=== PATIENT | female | born 1950 | race Caucasian/White ===

== ENCOUNTER 2024-09-17 10:13 | Outpatient (AMB) | payer MEDICARE, SELFPAY ==
--- NOTE | 2024-09-17 10:15 | MHC.OFFVIS ---
Vital Signs 09/17/24 10:19 Height 5 ft 4.25 in Weight 181 lb 14.102 oz BMI 31.0 BP 104/68 Blood Pressure Location Lt brachial Position Sitting Pulse 74 Pulse Source Pulse Oximeter Pulse Oximetry (%) 96 Oxygen Delivery Method Room Air Intake Visit Reasons: COPD Allergies Sulfa (Sulfonamide Antibiotics) Adverse Reaction (Intermediate, Verified 09/17/24 10:24) Gastrointestinal Upset HPI Comments Details: The patient is here for pulmonary evaluation. The patient is a 74 year woman presenting with worsening dyspnea symptoms. She had abnormal CT scan of the chest and she was referred to Pulmonary. . The patient has been having worsening dyspnea on exertion now for several months. Seems to be getting worse. Moderate severity. Even with minimal activities she does get short of breath. But typically going up a flight of stairs causes her to have significant discomfort. She was evaluated over the summer with pulmonary function studies which I personally reviewed with her. No evidence of any obstructive nor restrictive ventilatory defects. She did have a mild isolated diffusion impairment. Therefore based on the fact that her PFTs were not significant the abnormal she underwent a cardiac workup. She had a CT coronary artery angiogram back in 2021 demonstrating minimal disease. Subsequently she did undergo more recently a diagnostic left heart cardiac catheterization. Her LVEDP was 10 mmHg. No significant CAD noted. Based on the fact that she continued to have symptoms she was placed on respiratory inhalers include Breztri and Trelegy. Unfortunately she did have adverse effects to those medications. She was then placed on Anoro which she seems to tolerate. In addition to that she did undergo a CT scan of the chest. Based on the report seems to have some degree of minimal emphysema in the upper lung areas and some reticular changes at the bases suggesting some interstitial lung disease pulmonary fibrosis. During the visit we did go for walking oximetry. Initially her saturations were down so I did get a year probe. Then we were able to follow her pulse oximeter with activity. She did desaturate down to about 91% with activity. We did go up a flight of stairs. Likely that she would desaturated further. Therefore, some of her symptoms indeed is from of hypoxia. the patient does not qualify for oxygen at this time. [facility] Medical History (Updated 09/17/24 @ 21:09 by Claus Kramer MD) Pulmonary nodule Hypoxia ILD (interstitial lung disease) COPD (chronic obstructive pulmonary disease) Social History (Updated 09/17/24 @ 10:22 by Torie Ba CMA) Patient Tobacco Use Status: Former Tobacco user Review of Systems Const Denies fever(s) ENT Reports no additional complaints Card Denies chest pain and Reports dyspnea on exertion Resp Reports dyspnea on exertion and Reports wheezing GI Reports heartburn Musc Reports myalgias Skin/Breast Denies rash Boyd/Lymph Reports no additional complaints Aller/Immun Reports wheezing Physical Exam Vital Signs: Last Vital Signs Pulse 74 09/17/24 10:19 BP 104/68 09/17/24 10:19 Pulse Ox 96 09/17/24 10:19 Oxygen Delivery Method Room Air 09/17/24 10:19 BMI result Body Mass Index 31.0 Const General: comfortable HEENT Head: Yes normocephalic Neck Neck: Yes supple Chest Chest palpation & inspection: normal inspection of the chest Resp Effort & Inspection: normal respiratory effort Auscultation: diminished lung sounds Cardio Heart sounds: S1 normal heart sound present and S2 normal heart sound present GI Palpation (GI): Soft to palpation Skin General skin exam: no rashes or lesions noted Extrem General: Yes no clubbing, cyanosis or edema Results Reviewed Results Reviewed: personally reviewed CT coronary artery 2021, PFTs 03/2024 Assessment & Plan Assessment & Plan (1) COPD (chronic obstructive pulmonary disease): Code(s): J44.9 - Chronic obstructive pulmonary disease, unspecified Category: Medical Qualifiers: COPD type: emphysema Emphysema type: centrilobular Qualified Code(s): J43.2 - Centrilobular emphysema (2) ILD (interstitial lung disease): Code(s): J84.9 - Interstitial pulmonary disease, unspecified Category: Medical (3) Hypoxia: Code(s): R09.02 - Hypoxemia Category: Medical (4) Pulmonary nodule: Comment: 3mm nodule Code(s): R91.1 - Solitary pulmonary nodule Category: Medical Plan The patient is presenting With dyspnea on exertion. may have a component interstitial lung disease. Has underlying interstitial the reticular changes at the bases. Evidence of hypoxia with activity although she does not qualify for oxygen at this time. Need to consider exercise induced pulmonary vascular disease. continue Anoro start Fluticasone HFA with spacer to minimize adverse effects sleep with HOB elevated reflux diet Consider bloodwork to address ILD serial imaging studies exercise regimen F/U 2 months Medications: New fluticasone propionate 110 mcg/actuation 2 puffs inhalation BID 12 grams 5RF 30 days Coding Level of Care Code New Pt Level 5 (46944) Diagnoses Centrilobular emphysema J43.2 COPD type: emphysema Emphysema type: centrilobular ILD (interstitial lung disease) J84.9 Hypoxia R09.02 Pulmonary nodule R91.1 Time Spent (min) 60
[2024-09-17 10:19] VITALS: BP 104/68; PULSE 74; O2SAT 96; BMI 31.0
--- OUTSIDE RECORDS SUMMARY | 2024-09-17 11:32 | XMS_ITS ---
Author Name [facility] Organization Unknown History of Medication Use Medication Directions Dispensed Refills Start Date End Date [facility] ipratropium 0.5 mg-albuterol 3 mg (2.5 mg base)/3 mL nebulization soln TAKE 1 VIAL EVERY 4 TO 6 HOURS NEEDED. 06/07/2024 active neomycin 3.5 mg/g-polymyxin B 10,000 unit/g-dexameth 0.1 % eye oint APPLY 1 A SMALL AMOUNT INTO AFFECTED EYE TWICE A DAY DIRECTED FOR 1 WEEK ONLY 06/07/2024 active azithromycin 250 mg tablet 06/07/2024 active benzonatate 200 mg capsule 06/07/2024 active tramadol 50 mg tablet TAKE 1 TABLET BY MOUTH THREE TIMES A DAY NEEDED FOR PAIN 06/07/2024 active duloxetine 60 mg capsule,delayed release 06/07/2024 active amoxicillin 500 mg tablet TAKE 4 CAPSULES BY MOUTH ONE HOUR BEFORE DENTAL APPOINTMENT 06/07/2024 active codeine 10 mg-guaifenesin 100 mg/5 mL oral liquid TAKE 2.5ML BY MOUTH EVERY 4 TO 6 HOURS NEEDED 06/07/2024 active cefdinir 300 mg capsule TAKE ONE CAPSULE BY MOUTH TWICE DAILY 06/07/2024 active prednisone 10 mg tablet 06/07/2024 active levofloxacin 750 mg tablet TAKE 1 TABLET BY MOUTH EVERY DAY 06/07/2024 active levothyroxine 50 mcg tablet 06/07/2024 active Vios Aerosol Delivery System USE DIRECTED 06/07/2024 active Anoro Ellipta 62.5 mcg-25 mcg/actuation powder for inhalation 06/07/2024 act jessica pantoprazole 40 mg tablet,delayed release TAKE 1 TABLET BY MOUTH EVERY DAY 06/07/2024 active oxycodone 5 mg tablet TAKE 1 TO 2 TABLETS BY MOUTH EVERY 4 HOURS NEEDED FOR SEVERE PAIN 06/07/2024 active cyclobenzaprine 10 mg tablet TAKE 1 TABLET BY MOUTH THREE TIMES A DAY 06/07/2024 active Trelegy Ellipta 100 mcg-62.5 mcg-25 mcg powder for inhalation INHALE 1 PUFF ONCE DAILY 06/07/2024 active Combivent Respimat 20 mcg-100 mcg/actuation solution for inhalation 2 PUFFS INHALATION EVERY 6 HRS NEEDED 06/07/2024 active rosuvastatin 40 mg tablet 06/07/2024 active metoprolol succinate ER 100 mg tablet,extended release 24 hr 06/07/2024 active Eliquis 2.5 mg tablet TAKE 1 TABLET BY MOUTH TWO TIMES A DAY FOR 7 DAYS THEN RESUME HOME DOSE 06/07/2024 active Eliquis 5 mg tablet TAKE 1 TABLET BY MOUTH TWICE A DAY FOR 90 DAYS 06/07/2024 active Allergies Allergen Reaction Severity Comment Documented Date Source Statu s SULFA (SULFONAMIDE ANTIBIOTICS) ENS_AONECT Problems Problem Status Onset Date Problem Type Date of Resoluti on Source Pain of left knee joint active 2024-06-02 ProblemAct ENS_AONECT
== END 2024-09-17 11:10 | disposition home or self-care (01) ==
PROVIDERS: PCP Internal Medicine; Visit Provider Hospitalist
DX: J43.2 Centrilobular emphysema (principal); J84.9 Interstitial pulmonary disease, unspecified; R09.02 Hypoxemia; R91.1 Solitary pulmonary nodule
CPT/HCPCS: 99205

== ENCOUNTER → 2024-09-17 10:13 | Outpatient (BNVA) | payer MEDICARE, SELFPAY | PROVIDERS: PCP Internal Medicine; Visit Provider Hospitalist | DX: J43.2 Centrilobular emphysema (principal); J84.9 Interstitial pulmonary disease, unspecified; R09.02 Hypoxemia; R91.1 Solitary pulmonary nodule | CPT/HCPCS: 99202 ==

== ENCOUNTER 2024-11-26 09:58 | Outpatient (REF) | payer MEDICARE, SELFPAY | END 2024-11-26 09:59 | disposition home or self-care (01) | LOC: HO.LNP 09:58 | PROVIDERS: PCP Internal Medicine; Visit Provider Hospitalist | DX: J32.9 Chronic sinusitis, unspecified (principal); J84.9 Interstitial pulmonary disease, unspecified; R09.02 Hypoxemia; R91.1 Solitary pulmonary nodule | CPT/HCPCS: 87070; 87077; 87185; 87205; 99212 ==

== ENCOUNTER 2024-11-26 09:58 | Outpatient (AMB) | payer MEDICARE, SELFPAY ==
[2024-11-26 10:01] VITALS: BP 130/68; PULSE 64; O2SAT 95; BMI 30.4
--- NOTE | 2024-11-26 10:01 | MHC.OFFVIS ---
Vital Signs 11/26/24 10:01 Height 5 ft 4.25 in Weight 178 lb 9.191 oz BMI 30.4 BP 130/68 Blood Pressure Location Lt brachial Position Sitting Pulse 64 Pulse Source Pulse Oximeter Pulse Oximetry (%) 95 Oxygen Delivery Method Room Air Intake Visit Reasons: COPD Allergies Sulfa (Sulfonamide Antibiotics) Adverse Reaction (Intermediate, Verified 11/26/24 10:04) Gastrointestinal Upset HPI Comments Details: The patient is a 74 year woman presenting with worsening dyspnea symptoms. She had abnormal CT scan of the chest and she was referred to Pulmonary. . The patient has been having worsening dyspnea on exertion now for several months. Seems to be getting worse. Moderate severity. Even with minimal activities she does get short of breath. But typically going up a flight of stairs causes her to have significant discomfort. She was evaluated over the summer with pulmonary function studies which I personally reviewed with her. No evidence of any obstructive nor restrictive ventilatory defects. She did have a mild isolated diffusion impairment. Therefore based on the fact that her PFTs were not significant the abnormal she underwent a cardiac workup. She had a CT coronary artery angiogram back in 2021 demonstrating minimal disease. Subsequently she did undergo more recently a diagnostic left heart cardiac catheterization. Her LVEDP was 10 mmHg. No significant CAD noted. Based on the fact that she continued to have symptoms she was placed on respiratory inhalers include Breztri and Trelegy. Unfortunately she did have adverse effects to those medications. She was then placed on Anoro which she seems to tolerate. In addition to that she did undergo a CT scan of the chest. Based on the report seems to have some degree of minimal emphysema in the upper lung areas and some reticular changes at the bases suggesting some interstitial lung disease pulmonary fibrosis. During the visit we did go for walking oximetry. Initially her saturations were down so I did get a year probe. Then we were able to follow her pulse oximeter with activity. She did desaturate down to about 91% with activity. We did go up a flight of stairs. Likely that she would desaturated further. Therefore, some of her symptoms indeed is from of hypoxia. the patient does not qualify for oxygen at this time. 11/26/2024 the patient is here for a pulmonary follow-up visit. Overall she is doing well. She did start the Flovent. Is working well. Although she is getting hoarseness. She is using it 2 puffs with spacer in the morning. Will go ahead and to 1 puff twice a day to try to minimize irritation to her throat. She should also rinse and gargle well mouthwash or salt water and start of water. She continues on the Anoro inhaler with good effect. The patient still complains of chest congestion. Although is getting a little better. She brings up some phlegm. We were able to get a sputum culture sent to the microbiology lab. In the meantime I do believe that for her chronic bronchitis and Acapella valve will be helpful to help her with CPT and mucus clearance. If that is not helpful or if her mucus gets worse we can also consider azithromycin 3 times a week or considering Daliresp. The patient will start using the Acapella valve and hopefully she feels better without any additional medication. She will follow up sometime in the fall with a chest x-ray if she has any issues prior to that she will call for an earlier assessment. [facility] Medical History (Updated 09/17/24 @ 21:09 by Claus Kramer MD) Pulmonary nodule Hypoxia ILD (interstitial lung disease) COPD (chronic obstructive pulmonary disease) Social History Patient Tobacco Use Status: Former Tobacco user Review of Systems Const Denies fever(s) ENT Reports no additional complaints Card Denies chest pain and Reports dyspnea on exertion Resp Reports dyspnea on exertion and Reports wheezing GI Reports heartburn Musc Reports myalgias Skin/Breast Denies rash Boyd/Lymph Reports no additional complaints Aller/Immun Reports wheezing Physical Exam Vital Signs: Last Vital Signs Pulse 64 11/26/24 10:01 BP 130/68 11/26/24 10:01 Pulse Ox 95 11/26/24 10:01 Oxygen Delivery Method Room Air 11/26/24 10:01 BMI result Body Mass Index 30.4 Const General: comfortable HEENT Head: Yes normocephalic Neck Neck: Yes supple Chest Chest palpation & inspection: normal inspection of the chest Resp Effort & Inspection: normal respiratory effort Auscultation: diminished lung sounds Cardio Heart sounds: S1 normal heart sound present and S2 normal heart sound present GI Palpation (GI): Soft to palpation Skin General skin exam: no rashes or lesions noted Extrem General: Yes no clubbing, cyanosis or edema Assessment & Plan Assessment & Plan (1) COPD (chronic obstructive pulmonary disease): Code(s): J44.9 - Chronic obstructive pulmonary disease, unspecified Category: Medical Qualifiers: COPD type: emphysema Emphysema type: centrilobular Qualified Code(s): J43.2 - Centrilobular emphysema (2) ILD (interstitial lung disease): Code(s): J84.9 - Interstitial pulmonary disease, unspecified Category: Medical (3) Hypoxia: Code(s): R09.02 - Hypoxemia Category: Medical (4) Pulmonary nodule: Comment: 3mm nodule Code(s): R91.1 - Solitary pulmonary nodule Category: Medical Plan The patient is presenting With dyspnea on exertion. may have a component interstitial lung disease. Has underlying interstitial the reticular changes at the bases. Evidence of hypoxia with activity although she does not qualify for oxygen at this time. Need to consider exercise induced pulmonary vascular disease. continue Anoro change Fluticasone HFA 1 puff BID with spacer to minimize adverse effects sleep with HOB elevated reflux diet CXR sputm culture start CPT with acapella valve exercise regimen F/U 4-6 months Orders: Orders XR chest 2V Today J84.9 - Interstitial pulmonary disease, unspecified Sputum Cult + Gram stain Today R91.1 - Solitary pulmonary nodule Coding Level of Care Code Est Pt Level 4 (79592) Diagnoses Centrilobular emphysema J43.2 COPD type: emphysema Emphysema type: centrilobular ILD (interstitial lung disease) J84.9 Hypoxia R09.02 Pulmonary nodule R91.1 Time Spent (min) 17
--- OUTSIDE RECORDS SUMMARY | 2024-11-26 11:20 | XMS_ITS ---
Author Organization Mil Gill MD Address [address] [id number] Care Team Providers Care Strip Winder Name Role Phone Mil Gill Primary Care Provider REASON FOR VISIT Inhaler Encounters Encounter Location Date Provider Diagnosis Mil Gill MD 50 [facility] [address] [place] [phone] 10/16/2024 Mil Gill Plan Of Treatment Next Appt Details Provider Name:Mil Gill , 01/15/2025 01:00:00 PM, [address] [place] [address], [place] [address], [place], [place], [phone], Progress Notes * Altagracia GREEN ADOB:[birth year] (74 yo F)Acc No.[id number]:10/16/2024 Patient:?Altagracia GREEN :1950???Age:74 Y???Sex:Female Address:[address] [place] [address] [place], [address] * true * Date:? Generated for Printi nahum/Zaid/eTransmitting on:?11/26/2024 11:20 AM EDT
--- OUTSIDE RECORDS SUMMARY | 2024-11-26 11:20 | XMS_ITS | Encounter Summary ---
Author Organization [facility] Address [address] [place] [address] Care Team Providers Care Forepart Laster Name Role Phone Mil Gill MD Primary Care Provider [phone] Reason for Visit * Reason Onset Date Comments Anticoagulation 11/05/[address] Brown Encounter Details Date Type Department Care Team (Late st Contact Info) Description 11/05/2024 Telephone Gastroenterology - [place] [address] [facility] [address] [place] [address] Cielo Toney LPN Anticoagulation (Colonoscopy on 12/11/[address] Brown) Social History Tobacco Use Types Packs/Day Years Used Date Smoking Tobacco: Former Cigarettes Alcohol Use Standard Drinks/Week Comments Yes 0 (1 standard drink = 0.6 oz pur e alcohol) social Comments Unknown Sex and Gender Information Value Date Recorded Sex Assigned at Female 08/19/2024 8:34 AM EST Legal Sex Female 4:22 PM EST Gender Identity Female 08/19/2024 8:34 AM EST Sexual Orientation Straight 08/19/2024 8: 34 AM EST documented as of this encounter Progress Notes * Cielo Toney LPN - 11/18/2024 3:53 PM EDT Spoke with pt, thinks she has eliquis hold instructions on letter from ov on 10/03/24. She will callback if any questions. * Luzmaria Krause - 11/18/2024 1:12 PM EDT Patient returning call to discuss eliquis instructions, please call [phone]. * Cielo Toney LPN - 11/18/2024 1:06 PM EDT Left msg for pt to call back. Did pt get instructions to hold eliquis at last ov? * Cielo Toney LPN - 11/05/2024 2:48 PM EST Colonoscopy on 12/11/[address] Brown, See ov note from 10/03/24, pt on eliquis, advised to hold 2 days prior to colonoscopy documented in this encounter Plan of Treatment Upcoming Encounters Date Type Department Care Team (Late st Contact Info) Description 12/11/2024 12:00 PM EDT Hospital Encounter [facility] Endoscopy [address] [place] [phone] Shy Brown MD [address] [facility] [address] [place] [address] documented as of this encounter Visit Diagnoses Not on filedocumented in this encounter Care Teams Forepart Laster Relationship Specialty Start Date End Date Mil Gill MD 50 [facility] [address] [place] [address] PCP - General Internal Medicine 08/19/24 documented as of this encounter
--- OUTSIDE RECORDS SUMMARY | 2024-11-26 11:21 | XMS_ITS ---
Author Organization Mil Gill MD Address [address] [place] [phone] Care Team Providers Care Booking Clerk Name Role Phone Mil Gill Primary Care Provider [phone] Reason For Referral Reason Duplicate Diagnosis 1 Spinal stenosis, lum bar region with neurogenic claudication (M48.062) Referral Organization Mil Gill MD Referring Provider First Name Mil Referring Provider Last Name Jairo Referring Provider Speciality Internal M edicine Referred Provider [facility] Referral, N [facility]science Referred Provider Specialty Neurosurgery General Notes Duplicate Referral Referral Priority Routine REASON FOR VISIT Test results Encounters Encounter Location Date Provider Diagnosis Mil Gill MD [address] [phone] 11/24/2024 Mil Gill Spinal stenosis, lumbar region with neurogenic claudication M48.062 Assessments Encounter Date Diagnosis (ICD Code) Assessment Notes Treatment Notes Treatment Clinical Notes Section Notes 11/24/2024 Spinal stenosis, lumbar region with neurogenic claudication (ICD-10 - M48.062) Plan Of Treatment Referrals Referral Date Details 11/25/2024 11/25/2024, Duplicat e, Neuroscience [facility] Referral Next Appt Details Provider Name:Mil Gill , 01/15/2025 01:00:00 PM, [address] [place] [address], [phone], Progress Notes * Altagracia GREEN ADOB:[birth year] (74 yo F)Acc No.[id number]:11/24/2024 Patient:?RICARDO, Altagracia A :1950???Age:74 Y???Sex:Female Address:[address] [place], [place] [address], [address] Subjective: * Chief Complaints: * ???Test results * Medical History:? * Surgical History:? * Hospitalization/Major Diagno stic Procedure:? * Medications:? Objective: * Vitals:? Past Vitals:* 11/12/2024 Temp:97.2F, HR:72/min, Wt:17 9lbs, BMI:30.48Index, Ht:5 ft 4.25 in, Oxygen sat %:94% * 10/14/2024 Temp:95.9F, HR:77/min, Wt:17 8lbs, BMI:30.31Index, Ht:5 ft 4.25 in, Oxygen sat %:97% * 07/11/2024 Temp:96.7F, HR:73/min, Wt:18 3lbs, BMI:31.16Index, Ht:5 ft 4.25 in, Oxygen sat %:96% * Physical Examination:? Assessment: * Assessment: 1.?Spinal stenosis, lumbar r egion with neurogenic claudication - M48.062 (Primary)??? Plan: * Treatment: * Procedure Codes:? * true * Date:? Generated for Christina sidhu/Zaid/Kalebsmitting on:?11/26/2024 11:20 AM EDT Consultation Request Notes Referral Date Referring Provider Referred Provider Not 11/25/2024 Mil Gill [facility] Referral, Neuros cience Duplicate
--- OUTSIDE RECORDS SUMMARY | 2024-11-26 11:21 | XMS_ITS ---
Author Organization [facility] Address [address] [id number] Care Team Providers Care Telecine Operator Name Role Phone Mil [facility] Primary Care Provider Allergies Allergen (clinical drug ingredient) Drug/Non Drug Allergy documented on EMR Reaction Allergy Type Onset Date Status Substance with sulfonamide structure and antibacterial mechanism of action (substance) Sulfa (sulfonamide antibiotics) (uncoded) Unknown Allergy Active Results Component Value Reference Range Notes MR Lumbar Reviewed date:11/24/2024 06:16:34 PM Interpretation: Performing Lab: Notes/Report: Original Report EXAM: MR LUMBAR SPINE WITHOUT CONTRAST INDICATION: Neurogenic claudication TECHNIQUE: MRI lumbar spine was performed according to routine protocol with multiplanar fast spin echo imaging and sagittal fat-suppressed T2 imaging. COMPARISON: None. FINDINGS: Alignment: Normal Conus and Cauda Equina: The conus terminates at the L1 level and demonstrates no signal abnormality. Vertebral Body Heights: No significant height loss. Marrow Signal: No suspicious marrow replacing lesion. Multilevel degenerative endplate changes with edema noted at L4-L5 and L5-S1. Discs: There are varying degrees of degenerative disc desiccation and height loss. T12-L1: There is no significant canal or foraminal stenosis. L1-L2: Disc bulge, facet arthropathy and ligamentum flavum thickening with mild spinal canal stenosis. No significant foraminal stenosis. L2-L3: Mild disc bulge and posterior endplate spurring, facet arthropathy and ligamentum flavum thickening. Mild spinal canal, moderate right and mild left foraminal stenosis. Findings are similar to prior exam. L3-L4: Mild disc bulge, endplate spurring, facet arthropathy, posterior epidural fat and ligamentum flavum thickening. Mild spinal canal and moderate right and mild left foraminal stenosis. Findings are similar to prior exam. L4-L5: Mild disc bulge, left greater than right facet arthropathy and ligamentum flavum thickening. Moderate to severe spinal canal, severe left and mild to moderate right foraminal stenosis. Findings are similar to prior exam given differences in techniques. L5-S1: Disc bulge, facet arthropathy and ligamentum flavum thickening with mild spinal canal and moderate bilateral foraminal stenosis. Findings are interval slightly progressed since prior exam. No abnormality is identified at the visualized portion of the sacrum. IMPRESSION: Multilevel degenerative changes of the lumbar spine as described. Findings are most pronounced at L4-L5 with moderate to severe spinal canal, severe left and mild to moderate right foraminal stenosis. Read by: GRACE MONZON MD Reviewed and Electronically Signed by: GRACE MONZON MD - Original Report EXAM: MR LUMBAR SPIN E WITHOUT CONTRAST INDICATION: Neurogen ic claudication TECHNIQUE: MRI lumba r spine was performed according to routine protocol with multiplanar fast spi n echo imaging and sagittal fat-suppressed T2 imaging. COMPARISON: None. FINDINGS: Alignment: Normal Conus and Cauda Equi na: The conus terminates at the L1 level and demonstrates no signal abnormality. Vertebral Body Heigh ts: No significant height loss. Marrow Signal: No cardona spicious marrow replacing lesion. Multilevel degenerative endplate changes wit h edema noted at L4-L5 and L5-S1. Discs: There are michael fadi degrees of degenerative disc desiccation and height loss. T12-L1: There is no significant canal or foraminal stenosis. L1-L2: Disc bulge, f acet arthropathy and ligamentum flavum thickening with mild spinal canal stenosi s. No significant foraminal stenosis. L2-L3: Mild disc bul ge and posterior endplate spurring, facet arthropathy and ligamentum flavum th ickening. Mild spinal canal, moderate right and mild left foraminal stenosis. Findings are similar to prior exam. L3-L4: Mild disc bul ge, endplate spurring, facet arthropathy, posterior epidural fat and ligamentum f lavum thickening. Mild spinal canal and moderate right and mild left foraminal stenosis. Findings are similar to prior exam. L4-L5: Mild disc bul ge, left greater than right facet arthropathy and ligamentum flavum thickening. M oderate to severe spinal canal, severe left and mild to moderate right monet inal stenosis. Findings are similar to prior exam given differences in techniques. L5-S1: Disc bulge, f acet arthropathy and ligamentum flavum thickening with mild spinal canal and mod erate bilateral foraminal stenosis. Findings are interval slightly progressed since prior exam. No abnormality is id entified at the visualized portion of the sacrum. IMPRESSION: Multilevel degenerat jessica changes of the lumbar spine as described. Findings are most pronounced at L 4-L5 with moderate to severe spinal canal, severe left and mild to moderate rig ht foraminal stenosis. Read by: GRACE MONZON MD Reviewed and Electro nically Signed by: GRACE MONZON MD MR Thoracic Reviewed date:11/24/2024 06:16:34 PM Interpretation: Performing Lab: Notes/Report: Original Report EXAM: MR THORACIC SPINE WITHOUT CONTRAST INDICATION: Neurogenic claudication TECHNIQUE: Noncontrast MR of the thoracic spine was performed according to protocol with multiplanar fast spin echo imaging and sagittal fat-suppressed T2 imaging COMPARISON: None. FINDINGS: Alignment is unremarkable. Vertebral body heights are maintained. No suspicious marrow replacing lesion. Multilevel degenerative endplate changes with marrow edema most notable at T9-T10. There are multilevel degenerative disc changes. Disc bulge, facet arthropathy and ligamentum flavum thickening at T1-2 with mild spinal canal stenosis. The disc bulge contacts the ventral cord without cord signal abnormality. Moderate to severe bilateral foraminal stenosis at this level. Multilevel disc bulges throughout the thoracic spine in addition to ligamentum flavum thickening and posterior epidural fat resulting up to mild spinal canal stenosis. Moderate to severe right and mild left foraminal stenosis at T9-T10. The thoracic cord is normal in appearance. No paraspinal lesions are identified. IMPRESSION: 1. Multilevel degenerative changes of the thoracic spine as described. Findings are most pronounced at T1-T2 with mild spinal canal, moderate severe bilateral foraminal stenosis and T9-T10 with moderate to severe right and mild left foraminal stenosis. 2. Multilevel degenerative edema is noted along the endplates, most pronounced at T9-T10. Read by: GRACE MONZON MD Reviewed and Electronically Signed by: GRACE MONZON MD - Original Report EXAM: MR THORACIC SP INE WITHOUT CONTRAST INDICATION: Neurogen ic claudication TECHNIQUE: Noncontra st MR of the thoracic spine was performed according to protocol with multip lanar fast spin echo imaging and sagittal fat-suppressed T2 imaging COMPARISON: None. FINDINGS: Alignment is unremarkable. Vertebral body heigh ts are maintained. No suspicious marrow replacing lesion. Multilevel degenerative endplate changes with marrow edema mo st notable at T9-T10. There are multilevel degenerative disc changes. Disc bulge, facet ar thropathy and ligamentum flavum thickening at T1-2 with mild spinal canal stenosi s. The disc bulge contacts the ventral cord without cord signal abnormality. Moderate to severe bilateral foraminal stenosis at this level. Multilevel disc bulg es throughout the thoracic spine in addition to ligamentum flavum thickening an d posterior epidural fat resulting up to mild spinal canal stenosis. Moderate to severe r ight and mild left foraminal stenosis at T9-T10. The thoracic cord is normal in appearance. No paraspinal lesion s are identified. IMPRESSION: 1. Multilevel degene rative changes of the thoracic spine as described. Findings are most pronounced at T1-T2 with mild spinal canal, moderate severe bilateral foraminal stenosis a nd T9-T10 with moderate to severe right and mild left foraminal stenosis. 2. Multilevel degene rative edema is noted along the endplates, most pronounced at T9-T10. Read by: GRACE MONZON MD Reviewed and Electro nically Signed by: GRACE MONZON MD Reason For Referral Reason faxed Diagnosis 1 Spinal stenosis, lum bar region with neurogenic claudication (M48.062) Referral Organization [facility] Referring Provider First Name Mil Referring Provider Last Name Jairo Referring Provider Speciality Internal M edicine Referred Provider Natalie Mathews Referred Provider Specialty Pain Medicin e General Notes Vidya LU 11/01 03:52:45 PM >faxed Referral Priority Routine Reason faxed Diagnosis 1 Spinal stenosis, lum bar region with neurogenic claudication (M48.062) Referral Organization [facility] Referring Provider First Name Mil Referring Provider Last Name Jairo Referring Provider Speciality Internal M edicine Referred Provider [facility] Referral, [facility] Referred Provider Specialty Neurosurgery General Notes Vidya LU 11/02 01:16:23 PM >Completed [facility] referral form and faxed Referral Priority Routine REASON FOR VISIT back pain/ not sleeping Medications Medication SIG (Take, Route, Frequency, Duration) Notes Start Date End Date Status Fluticasone Propionate (Inhal) 100 MCG/ACT 1 puff Inhalation Twice a day Not-Taking Fluticasone Propionate HFA 110 MCG/ACT 2 puffs Inhalation Twice a day Active Gabapentin 300 MG 3 capsule Orally Once a day for 30 days As needed 11/12/2024 Active Rosuvastatin Calcium 40 MG TAKE 1 TABLET ONCE DAILY for 90 Active DULoxetine HCl 60 MG TAKE 1 CAPSULE ONCE DAILY for 90 Active Cyanocobalamin 1000 MCG 1 lozenge Orally Once a Week Active Ipratropium-Albuterol 20-100 MCG/ACT 2 Puffs Inhalation every 6 hrs As needed 03/17/2024 Active Levothyroxine Sodium 50 MCG TAKE 1 TABLET DAILY, EXCEPTON WEDNESDAYS, TAKE 2 TABLETS FOR A TOTAL OF 8 TABLETS EVERY WEEK. for 90 Active Metoprolol Succinate ER 100 MG TAKE 1 TABLET ONCE DAILY for 90 Active Anoro Ellipta 62.5-25 MCG/INH 1 puff Inhalation Once a day 05/28/2024 Active Eliquis 5 MG 1 Tablet Orally Twic e a day for 90 days Active Claritin 10 MG 1 tablet Orally Once a day for 30 day(s) Active Social History Tobacco Use: Social History Observation Description Date Details (start date - stop date) Former Smoker NA - 09/03/1989 AUDIT-C (Standard) Question Answer Notes Did you have a drink contain ing alcohol in the past year? Yes How often did you have six o r more drinks on one occasion in the past year? 2 to 4 times a month (2 points) How many drinks did you have on a typical day when you were drinking in the past year? 1 or 2 drinks (0 point) How often did you have a dri nk containing alcohol in the past year? Never (0 point) Points 2 Interpretation Negative Tobacco Control (Standard) Question Answer Notes Tobacco use: Former smoker When did you stop smoking? 09/03/1989 How long has it been since y ou last smoked? 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) Active confirmed Vital Signs Height 5 ft 4.25 in in 11/12/2024 Weight 179 lbs 11/12/2024 BMI 30.48 kg/m2 11/12/2024 Temperature 97.2 degrees Fahrenheit 11/13/19 25 Heart Rate 72 /min 11/12/2024 Oximetry 94 % 11/12/2024 Encounters Encounter Location Date Provider Diagnosis [facility] MD [address] [phone] 11/12/2024 [facility] Spinal stenosis, lumbar region with neurogenic claudication M48.062 and Other spondylosis with radiculopathy, thoracic region M47.24 Assessments Encounter Date Diagnosis (ICD Code) Assessment Notes Treatment Notes Treatment Clinical Notes Section Notes 11/12/2024 Spinal stenosis, lumbar region with neurogenic claudication (ICD-10 - M48.062) Since her last office visit she has been having increasing and persisting pain from the left upper hip and buttock into the left leg. This is worsened at nighttime and she is unable to sleep effectively at nighttime. Otherwise she also has right rib pain which is also positional when she sleeps at nighttime. She has had a prior MRI with surgical intervention and has significant spinal stenosis. Based on her description of the pain as well as her straight leg abnormality this is most likely progressive spinal stenosis with radiculopathy and neurogenic claudication. Recommend repeat MRI and most likely she will need surgical intervention but can also start with injection evaluation 11/12/2024 Other spondylosis with radiculopathy, thoracic region (ICD-10 - M47.24) Her right sided rib pain is most likely a T8 radiculopathy. Can check MRI of this as well 11/12/2024 Other This note was created with voice dictation recognition software and may contain errors of grammar and syntax. Also labs were reviewed with patient. Plan Of Treatment Medication Medication Name Sig Start Date Stop Date Notes Gabapentin 300 MG 3 capsule Orally Once a day for 30 days 11/12/2024 Referrals Referral Date Details 11/12/2024 11/12/2024, faxed, T zeke Mathews 11/12/2024 11/12/2024, faxed, [facility] Referral Next Appt Details Provider Name:Mil Gill , 01/15/2025 01:00:00 PM, [address] [place] [address], SUITE [facility], [place], [place], [phone], Progress Notes * Altagracia SILVA ADOB:[birth year] (74 yo F)Acc No.[id number]:11/12/2024 Progress Notes Patient:?Altagracia SILVA A Provider:?[facility] MD :1950???Age:74 Y???Sex:Female D ate:11/12/2024 Address:[address] [place] [address] , [facility], [id number] Structured Data:Care team [facility] Stratification : Medium Low Risk Subjective: * Chief Complaints: * ???Back pain/ not sleeping * Medical History:? * Social History:?Tobacco Use:?Tobacco Control (Standard)?Tobacco use:?Former smoker ?When did you stop smoking??09/03/1989 ?How long has it been since you last smoked??Greater than 10 years ?Additional Findings: Tobacco non-user?Ex-heavy cigarette smoker (20- 30/day) ???Drugs/Alcohol:?Drugs?Have you used drugs other than those for medical reasons in the past 12 months??No ?Caffeine?Intake:?1-2 cups per day ?Do you smoke marijuana?: Denies. ?Do you drink alcohol?: Yes, Socially. ???Miscellaneous:?Exercise: yes, walking. ?Occupation: Retired. ???Household:?Household?Marital status:?Drug/Alcohol:?AUDIT-C (Standard)?Did you have a drink containing alcohol in the past year??Yes ?How often did you have six or more drinks on one occasion in the past year??2 to 4 times a month (2 points) ?How many drinks did you have on a typical day when you were drinking in the past year??1 or 2 drinks (0 point) ?How often did you have a drink containing alcohol in the past year??Never (0 point) ?Points?2 ?Interpretation?Negative * Medications:?TakingClaritin 10 MG Tablet 1 tablet Orally Once a day Eliquis 5 MG Tablet 1 Tablet Orally Twice a day Ipratropium-Albuterol 20-100 MCG/ACT Aerosol Solution 2 Puffs Inhalation every 6 hrs As neededCyanocobalamin 1000 MCG Lozenge 1 lozenge Orally Once a Week Anoro Ellipta 62.5-25 MCG/INH Aerosol Powder Breath Activated 1 puff Inhalation Once a day Metoprolol Succinate ER 100 MG Tablet Extended Release 24 Hour TAKE 1 TABLET ONCE DAILY Levothyroxine Sodium 50 MCG Tablet TAKE 1 TABLET DAILY, EXCEPTWednesdays, TAKE 2 TABLETS FOR A TOTAL OF 8 TABLETS EVERY WEEK. DULoxetine HCl 60 MG Capsule Delayed Release Particles TAKE 1 CAPSULE ONCE DAILY Rosuvastatin Calcium 40 MG Tablet TAKE 1 TABLET ONCE DAILY Fluticasone Propionate HFA 110 MCG/ACT Aerosol 2 puffs Inhalation Twice a day Taking Claritin 10 MG Tablet 1 tablet Orally Once a day Taking Eliquis 5 MG Tablet 1 Tablet Orally Twice a day Taking Ipratropium-Albuterol 20-100 MCG/ACT Aerosol Solution 2 Puffs Inhalation every 6 hrs As neededTaking Cyanocobalamin 1000 MCG Lozenge 1 lozenge Orally Once a Week Taking Anoro Ellipta 62.5-25 MCG/INH Aerosol Powder Breath Activated 1 puff Inhalation Once a day Taking Metoprolol Succinate ER 100 MG Tablet Extended Release 24 Hour TAKE 1 TABLET ONCE DAILY Taking Levothyroxine Sodium 50 MCG Tablet TAKE 1 TABLET DAILY, EXCEPTWednesdays, TAKE 2 TABLETS FOR A TOTAL OF 8 TABLETS EVERY WEEK. Taking DULoxetine HCl 60 MG Capsule Delayed Release Particles TAKE 1 CAPSULE ONCE DAILY Taking Rosuvastatin Calcium 40 MG Tablet TAKE 1 TABLET ONCE DAILY Taking Fluticasone Propionate HFA 110 MCG/ACT Aerosol 2 puffs Inhalation Twice a day Not-Taking/PRNFluticasone Propionate (Inhal) 100 MCG/ACT Aerosol Powder Breath Activated 1 puff Inhalation Twice a day Medication List reviewed and reconciled with the patientNot-Taking/PRN Fluticasone Propionate (Inhal) 100 MCG/ACT Aerosol Powder Breath Activated 1 puff Inhalation Twice a day Medication List reviewed and reconciled with the patient * Allergies:?Sulfa (sulfonamid e antibiotics)no[Allergies Verified] Objective: * Vitals:?Temp:97.2F, HR:72/mi n, Wt:179lbs, BMI:30.48Index, Ht:5 ft 4.25 in, Oxygen sat %:94%. Past Vitals:* 10/14/2024 Temp:95.9F, HR:77/min, Wt:17 8lbs, BMI:30.31Index, Ht:5 ft 4.25 in, Oxygen sat %:97% * 07/11/2024 Temp:96.7F, HR:73/min, Wt:18 3lbs, BMI:31.16Index, Ht:5 ft 4.25 in, Oxygen sat %:96% * 07/09/2024 Temp:96.7F, HR:87/min, Wt:18 3lbs, BMI:31.16Index, Ht:5 ft 4.25 in, Oxygen sat %:95% * Examination: ???General Examination: ?GENERAL APPEARANCE:?Age appropriate, in no acute distress, well developed, well nourished.?HEAD:?normocephalic, atraumatic.?EYES:?extraocular movement intact (EOMI), sclera non-icteric.?Thoracic Spine/Upper Back: ?VERTEBRAL SPINE TENDERNESS:?Present.?Lumbar Spine/Lower back: ?STRAIGHT LEG RAISING TEST:?positive on the left.? Assessment: * Assessment: 1.?Other spondylosis with ra diculopathy, thoracic region - M47.24???2.?Spinal stenosis, lumbar region with neurogenic claudication - M48.062 (Primary)??? Plan: * Treatment: Clinical Notes: Since her last office visit she has been having increasing and persisting pain fromthe left upper hip and buttock into the left leg. This is worsened at nighttime and she is unable to sleep effectively at nighttime. Otherwise she also has right rib pain which is also positional when she sleeps at nighttime. She has had a prior MRI with surgical intervention and has significant spinal stenosis. Based on her description of the pain as well as her straight leg abnormality this is most likely progressive spinal stenosis with radiculopathy and neurogenic claudication. Recommend repeat MRI and most likely she will need surgical intervention but can also start with injection evalua tion? Referral To:Natalie Mathews??Pain Medicine ?Reason:faxed ? Referral To:[facility] Referral??Neurosurgery ?Reason: 2.?Other spondylosis with radiculopathy, thoracic region?Imaging: MR Thoracic* This DI was reviewed by Selma Gill on 11/24/2024 at 18:16 PM EDT Clinical Notes: Her right sided rib pain is most likely a T8 radiculopathy. Can check MRI of this as well??3.?Others? Clinical Notes: This note was created with voice dictation recognition software and may contain errors of grammar and syntax. Also labs were reviewed with patient.?? * Procedure Codes:? * Images: Billing Information: * Visit Code:? 45501 Office Visit, Est Pt., Level 3. * Procedure Codes:? * Sign off status: Completed true * Provider:?Mil Gill MD Date:?11/12 Generated for Christina sidhu/Zaid/Elviraitting on:?11/26/2024 11:20 AM EDT History and Physical Notes * Examination Category Sub-Category Detail Notes Category Not es Thoracic Spine/Upper Back VERTEBRAL SPINE TENDERNESS: Present Lumbar Spine/Lower back STRAIGHT LEG RAISING TEST: positive on the left General Examination GENERAL APPEARANCE: Age appr opriate, in no acute distress, well developed, well nourished HEAD: normocephalic, atrau matic EYES: extraocular movement intact (EOMI), sclera non-icteric Consultation Request Notes Referral Date Referring Provider Referred Provider Not es 11/12/2024 Mil Gill [facility] faxed 11/12/2024 Mil [facility] Referral, [facility] faxed
--- OUTSIDE RECORDS SUMMARY | 2024-11-26 11:21 | XMS_ITS | Clinical Summary ---
Author Organization [facility] Address [address] [place] [id number] Phone Care Team Providers Care Casino Floor Runner Name Role Phone Mil Gill MD Primary Care Provider [phone] Allergies Active Allergy Reactions Criticality Noted Date Comments Sulfa (Sulfonamide Antibiotics) 09/05 Medications Eliquis 5 mg tablet Take 1 tablet (5 mg total) by mouth 2 (two) times a day. 3 Active DULoxetine (CYMBALTA) [address] capsule Take 1 capsule (60 mg total) by mouth 1 (one) time each day. Active Combivent Respimat 20-100 mcg/actuation inhaler 2 PUFFS INHALATION EVERY 6 HRS NEEDED Active levothyroxine (SYNTHROID, LEVOTHROID) 50 mcg tablet TAKE 1 TABLET DAILY, EXCEPTON WEDNESDAYS, TAKE 2 TABLETS FOR A TOTAL OF 8 TABLETS EVERY WEEK. Active aluminum hydrox-magnesiu m carb (Gaviscon Extra Strength) 160-105 mg tablet,chewable 0 Refills, Maintenance, 06/23/24 7:51:00 EDT, Partial fill upon patient request if the prescription is for a schedule II opioid drug. 4 Active metoprolol succinate (TOPROL-XL) 100 mg 24 hr tablet Acti ve rosuvastatin (CRESTOR) 40 mg tablet Take 1 tablet (40 mg total) by mouth 1 (one) time each day. Active umeclidinium-vi lanteroL (ANORO ELLIPTA) 62.5-25 mcg/actuation inhaler Active gk-ffh-SH-vit W-zhqbgb-vwdtcb t (PreserVision AREDS 2 Plus MV) 200 mcg-15 mcg- 5 mg-1 mg capsule 2 times a day, 0 Refills, Maintenance, 06/23/24 7:48:00 EDT, Partial fill upon patient request if the prescription is for a schedule II opioid drug. 4 Active cyanocobalamin (Vitamin B-12) 1,000 mcg tablet Take 1 tablet (1,000 mcg total) by mouth. 4 Active vitamin D3-folic acid 2,500 unit- 1 mg tablet Take 2,000 Int'l Units by mouth. 9 Active Active Problems Problem Noted Date Diagnosed Date Atrial fibrillation 10/03/2024 Assessment & Plan (10/03/2024 11:08 AM EST): Pt on Eliquis Advised to hold 2 days prior to colonoscopy Risk of clot/cva off of med reviewed Hypothyroid 10/03/2024 Hyperlipidemia 10/03/2024 Emphysema lung 10/03/2024 Adenomatous polyp of colon 10/03/2024 Assessment & Plan (10/03/2024 11:08 AM EST): Due for surveillance colonoscopy Depression 10/03/2024 HTN (hypertension) 10/03/2024 Right bundle branch block (RBBB) 10/03/2024 Mitral valve prolapse 10/03/2024 Osteoporosis 10/03/2024 Encounters Date Type Department Care Team Description 11/05/2024 Telephone Gastroenterology - [place] [address] [facility] [address] [place] [address] Cielo Toney LPN Anticoagulation (Colonoscopy on 12/11/[address] Brown) 10/03/2024 10:40 AM EST Office Visit Gastroenterology - [address] [facility] [address] [place] [address] Alba Figueroa PA Chronic idiopathic constipation (Primary Dx); Functional diarrhea; Adenomatous polyp of colon, unspecified part of colon; Longstanding persistent atrial fibrillation (CMS/HCC) 10/03/2024 Telephone Gastroenterology - [address] [facility] [address] [place] [address] Shy Brown MD from Last 3 Months Surgical History Surgery Date Site/Laterality Comments CERVICAL FUSION TOTAL HIP ARTHROPLASTY 09/03/2022 - 09/02/2023 Bilateral TOTAL KNEE ARTHROPLASTY 09/03/2017 - 09/02/2018 Left HAND SURGERY CATARACT EXTRACTION Bilateral HYSTERECTOMY COLONOSCOPY 08/03/2021 - 09/02/2021 adenoma x 5 (3 yr) COLONOSCOPY 12/03/2015 - 01/01/2016 int rhoids (5yr) COLONOSCOPY 09/03/2010 - 09/02/2011 int rhoids (5yr) Social History Tobacco Use Types Packs/Day Years Used Date Smoking Tobacco: Former Cigarettes Tobacco Cessation:Counseling Given: Not Answered Alcohol Use Standard Drinks/Week Comments Yes 0 (1 standard drink = 0.6 oz pur e alcohol) social Comments Unknown Sex and Gender Information Value Date Recorded Sex Assigned at Female 08/19/2024 8:34 AM EST Legal Sex Female 4:22 PM EST Gender Identity Female 08/19/2024 8:34 AM EST Sexual Orientation Straight 08/19/2024 8: 34 AM EST Obstetrics History Last Filed Vital Signs Vital Sign Reading Time Taken Comments Blood Pressure - - Pulse - - Temperature - - Respiratory Rate - - Oxygen Saturation - - Inhaled Oxygen Concentration - - Weight 81.2 kg (179 lb) 10/03/2024 10:32 AM EST Height 162.6 cm (5' 4 ) 10/03/2024 10:32 AM EST Body Mass Index 30.73 10/03/2024 10:32 AM EST Plan of Treatment Upcoming Encounters Date Type Department Care Team (Late st Contact Info) Description 12/11/2024 12:00 PM EDT Hospital Encounter [facility] Endoscopy [address] [place] [id number] Shy Brown MD [address] [address] Health Maintenance Due Date Last Done Comments Cholesterol Screening (Lipid Panel) 08/02/2022 Depression Screening 08/02/2022 Falls Risk Assessment 08/02/2022 Hepatitis C Screening 08/02/2022 Medicare Annual Wellness Visit 08/02/2022 Osteoporosis Screening (Bone Density Screening) 08/02/2022 Social Influencers of Health Screening 08/02/2022 Hypertension/CHF/CAD Annual BMP Blood Test 08/19/2024 DTaP,Tdap,and Td Vaccines (2 - Td or Tdap) 06/03/2034 06/03/2024 Zoster Vaccines Completed 03/03/2019, 12/27/2018 Hepatitis A Vaccines Aged Out 09/02/2019 No long er eligible based on patient's age to complete this topic RSV Immunization Patients 60+ Years Old Completed 07/17/2023 Pneumococcal Vaccine: 50+ Years Completed 09/18/2023 Influenza Vaccine Completed 06/03/2024, , 06/02/2022, Additional history exists COVID-19 Vaccine Completed 06/10/2024, , 06/05/2022, Additional history exists Colorectal Cancer Screening: Colonoscopy Discontinued 10/06/2024 HIB Vaccines Aged Out No longer eligi ble based on patient's age to complete this topic HPV Vaccines Aged Out No longer eligi ble based on patient's age to complete this topic Hepatitis B Vaccines Aged Out No long er eligible based on patient's age to complete this topic IPV Vaccines Aged Out No longer eligi ble based on patient's age to complete this topic MMR Vaccines Aged Out No longer eligi ble based on patient's age to complete this topic Meningococcal ACWY Vaccine Aged Out N o longer eligible based on patient's age to complete this topic Meningococcal B Vacine Aged Out No lo nger eligible based on patient's age to complete this topic RSV Immunization Patients Under 20 months Aged Out No longer eligible based on patient's age to complete this topic Varicella Vaccines Aged Out No longer eligible based on patient's age to complete this topic Procedures Procedure Name Priority Date/Time Associated Diagnosis Comments COLONOSCOPY Routine 10/06/2024 11:26 AM EST from Last 3 Months Results * COLONOSCOPY (10/06/2024 11:26 AM EST) Anatomical Region Laterality Modality Endoscopy us Historical Provider GI~PROCEDURE ORDERABLES F inal Result from Last 3 Months Insurance MEDICARE [facility] Care Teams Casino Floor Runner Relationship Specialty Start Date End Date Mil Gill MD [address] [place] [phone] PCP - General Internal Medicine 08/19/24
== END 2024-11-26 11:08 | disposition home or self-care (01) ==
LOC: HO.HPS 09:58
PROVIDERS: PCP Internal Medicine; Visit Provider Hospitalist
DX: J43.2 Centrilobular emphysema (principal); J84.9 Interstitial pulmonary disease, unspecified; R09.02 Hypoxemia; R91.1 Solitary pulmonary nodule
CPT/HCPCS: 99214

== ENCOUNTER 2024-12-16 12:46 | Outpatient (AMB) | payer MEDICARE, SELFPAY ==
[2024-12-16 13:32] VITALS: BP 104/60; PULSE 76; O2SAT 95
--- NOTE | 2024-12-16 13:32 | MHC.OFFVIS ---
Vital Signs 12/16/24 13:32 Height 5 ft 4.25 in BP 104/60 Blood Pressure Location Lt brachial Position Sitting Pulse 76 Pulse Source Pulse Oximeter Pulse Oximetry (%) 95 Oxygen Delivery Method Room Air Intake Visit Reasons: Acepella device - how to use Allergies Sulfa (Sulfonamide Antibiotics) Adverse Reaction (Intermediate, Verified 12/16/24 13:32) Gastrointestinal Upset Medication List - Last Reconciled 12/16/24 by Vibha Almodovar LPN amoxicillin-pot clavulanate 875-125 mg 1 tab PO BID 10 days apixaban (Eliquis) 10 mg PO BID ascorbic acid (vitamin C) 1 g PO ONCE aspirin (Adult Low Dose Aspirin) 81 mg PO DAILY cholecalciferol (vitamin D3) 50 mcg PO DAILY duloxetine 60 mg PO DAILY fluticasone propionate 110 mcg/actuation 2 puffs inhalation BID 30 days gabapentin 600 mg PO BEDTIME ipratropium-albuterol 20-100 mcg/actuation (Combivent Respimat) 2 puffs inhalation Q6H PRN levothyroxine 50 mcg PO DAILY loratadine-pseudoephedrine 10-240 mg ER (Claritin-D 24 Hour) 1 tab PO DAILY magnesium carb,citrate,oxide mg PO mecobalamin (vitamin B12) 1,000 mcg PO DAILY metoprolol succinate ER 100 mg PO DAILY multivitamin with minerals (Multiple Vitamin-Minerals tablet) 1 tab PO DAILY rosuvastatin 40 mg PO DAILY umeclidinium-vilanterol 62.5-25 mcg/actuation (Anoro Ellipta) 1 inh inhalation DAILY vit C,X-Km-huggf-lutein-zeaxan 250-90-40-1 mg (PreserVision AREDS-2) 1 tab PO ONCE HPI Comments Details: Altagracia was in today with her , Ruben. They were both educated on how to use the Acapella and how to properly clean it. How to use the Acapella handout given to Altagracia. They state they do not have any questions at this time. [facility] Medical History (Updated 09/17/24 @ 21:09 by Claus Kramer MD) Pulmonary nodule Hypoxia ILD (interstitial lung disease) COPD (chronic obstructive pulmonary disease) Social History Patient Tobacco Use Status: Former Tobacco user Physical Exam Vital Signs: Last Vital Signs Pulse 76 12/16/24 13:32 BP 104/60 12/16/24 13:32 Pulse Ox 95 12/16/24 13:32 Oxygen Delivery Method Room Air 12/16/24 13:32 Assessment & Plan Assessment & Plan (1) COPD (chronic obstructive pulmonary disease): Code(s): J44.9 - Chronic obstructive pulmonary disease, unspecified Category: Medical Qualifiers: COPD type: emphysema Emphysema type: centrilobular Qualified Code(s): J43.2 - Centrilobular emphysema Plan: CPT with acapella Coding Level of Care Code Established Pt Est Pt Level 1 (88632) Patient Type Established Diagnoses Centrilobular emphysema J43.2 COPD type: emphysema Emphysema type: centrilobular Comment NURSE VISIT ONLY
--- OUTSIDE RECORDS SUMMARY | 2024-12-16 15:32 | XMS_ITS | Continuity of Care Document ---
Author Organization [facility] Address [address] [place] [address] [address] [place] [address]- Care Team Providers Care Aquatic Biologist Name Role Phone Jairo BAZAN, Mil Primary Care Physician [phone] Encounter [facility] [place] Date(s): 11/12/24 - 12/12/[address] [place], [place] [address] Encounter Type: Triage Allergies, Adverse Reactions, Alerts Substance Criticality Severity Reaction Reaction Severity Status sulfa drugs upset stomach Acti ve Medications acetaminophen 325 mg oral tablet 650 mg, By Mouth, Every 6 hours, may take OTC not to exceed 3000 mg/day, Refills 0, Maintenance, 01/24/23 7:44:00 AM EDT, Partial fill upon patient request if the prescription is for a schedule II opioid drug. Start Date: 01/24/23 Status: Ordered Repeat number: 1 Anoro Ellipta 62.5 mcg-25 mcg/inh inhalation powder 1 puffs, Inhalation, Daily in AM, 0 Refills, Maintenance, 07/11/17 8:06:52 AM EST Start Date: 07/11/17 Status: Ordered Repeat number: 1 Ascorbic Acid = 1,000 mg, By Mouth, Daily, 0 Refills, Maintenance, 06/23/24 7:49:00 AM EDT, Partial fill upon patient request if the prescription is for a schedule II opioid drug. Start Date: 06/23/24 Status: Ordered Repeat number: 1 aspirin 81 mg oral tablet, chewable 1 tablet = 81 mg, Chew, Daily, 0 Refills, Maintenance, 06/23/24 7:45:00 AM EDT, Chew Tablet, Partial fill upon patient request if the prescription is for a schedule II opioid drug. Start Date: 06/23/24 Stop Date: 07/23/24 Status: Ordered Repeat number: 1 duloxetine 60 mg oral enteric coated capsule 1 capsule = 60 mg, By Mouth, Daily, # 30 capsule, 0 Refills, Maintenance, 01/08/23 1:21:00 PM EDT, ECCapsule, Partial fill upon patient request if the prescription is for a schedule II opioid drug. Start Date: 01/08/23 Status: Ordered Quantity: 30.0 Unit: capsule Repeat number: 1 Eliquis 5 mg oral tablet 1 tablet = 5 mg, By Mouth, 2 times a day, # 60 tablet, 5 Refills, Maintenance, 01/08/23 1:21:00 PM EDT, Tablet, Partial fill upon patient request if the prescription is for a schedule II opioid drug. Start Date: 01/08/23 Status: Ordered Quantity: 60.0 Unit: tablet Repeat number: 1 Gaviscon Extra Strength 160 mg-105 mg oral tablet, chewable 0 Refills, Maintenance, 06/23/24 7:51:00 AM EDT, Partial fill upon patient request if the prescription is for a schedule II opioid drug. Start Date: 06/23/24 Status: Ordered Repeat number: 1 levothyroxine 0.05 mg oral tablet 1 tablet = 50 mcg, By Mouth, Daily, # 30 tablet, 0 Refills, Maintenance, 01/08/23 1:21:00 PM EDT, Tablet, Partial fill upon patient request if the prescription is for a schedule II opioid drug. Start Date: 01/08/23 Status: Ordered Quantity: 30.0 Unit: tablet Repeat number: 1 Metoprolol Succinate ER 100 mg oral tablet, extended release 1 tablet = 100 mg, By Mouth, Daily, # 30 tablet, 0 Refills, Maintenance, 01/08/23 1:21:00 PM EDT, ER Tablet, Partial fill upon patient request if the prescription is for a schedule II opioid drug. Start Date: 01/08/23 Status: Ordered Quantity: 30.0 Unit: tablet Repeat number: 1 pantoprazole 40 mg oral delayed release tablet = 40 mg, By Mouth, Daily, # 30 tablet, 0 Refills, Maintenance, 06/06/23 7:26:00 AM EDT, EC Tablet, 166, cm, 06/06/23 7:05:00 EDT, Height, 80.8, kg, 06/05/23 13:16:00 EDT, Dry Weight Start Date: 06/06/23 Stop Date: 07/06/23 Status: Ordered Quantity: 30.0 Unit: tablet Repeat number: 1 PreserVision AREDS 2 2 times a day, 0 Refills, Maintenance, 06/23/24 7:48:00 AM EDT, Partial fill upon patient request if the prescription is for a schedule II opioid drug. Start Date: 06/23/24 Status: Ordered Repeat number: 1 rosuvastatin 40 mg oral tablet 1 tablet = 40 mg, By Mouth, Daily, # 60 tablet, 0 Refills, Maintenance, 01/08/23 1:21:00 PM EDT, Tablet, Partial fill upon patient request if the prescription is for a schedule II opioid drug. Start Date: 01/08/23 Status: Ordered Quantity: 60.0 Unit: tablet Repeat number: 1 Vitamin B-12 1000 mcg oral tablet 1,000 mcg, 1, tablet, By Mouth, Daily, Refills 0, Maintenance, 06/23/24 7:47:00 AM EDT, Partial fill upon patient request if the prescription is for a schedule II opioid drug. Start Date: 06/23/24 Status: Ordered Repeat number: 1 Vitamin D3 2000 intl units oral tablet 1 tablet = 2,000 International_Units, By Mouth, Daily in AM, 0 Refills Start Date: 08/09/09 Status: Ordered Repeat number: 1 Problem List Condition Confirmation Course Effective Dates Status H ealth Status Informant Acquired hypothyroidism Confirmed Active Anxiety Confirmed Active Atrial fibrillation Confirmed Active Rectocele Confirmed Active Hyperlipidemia Confirmed Active HTN (hypertension) Confirmed Active Menopause Confirmed Active Mitral valve prolapse Confirmed Active Obese class I Confirmed Active Social History Social History Type Response Smoking Status Former smoker; Other : quit 20+ years ago; entered on: 07/11/17 Sex Sex Representation Female (finding) Patient Care team information Care Team Personnel Name: Mil Gill MD Position: S Physician - Primary Care Member Role: PCP [address]: [address] [place] [address] [address] [place] [address]- Telecom: Name: Kae Malcolm RN Position: S RN Member Role: Primary Care Nurse Care Team Related Persons Name: GA GREEN Insurance Providers Guarantor name: DANYA PETER Health Plan Information #: 1 Payer: MEDICARE PART B OUTPT Member Number: NA Policy Number: NA Group Number: NA Health Plan Information #: 2 Payer: MEDEX Member Number: NA Policy Number: NA Group Number: NA
--- OUTSIDE RECORDS SUMMARY | 2024-12-16 15:32 | XMS_ITS | Encounter Summary ---
Author Organization [facility] [place] [address] Care Team Providers Care Color Artist Name Role Phone Mil Gill MD Primary Care Provider [phone] Reason for Referral * Hospital - Outpatient (Routine) - Closed Specialty Diagnoses / Procedures Referred By Contac t Referred To Contact Diagnoses Personal history of hyperplastic colon polyps Procedures COLONOSCOPY Anesthesia - MAC; [facility] ENDOSCOPY Shy Rodriguez MD [address] [address] Phone: tel: fax: [facility] Referral ID Status Reason Start Date Expiration Date Visits Re quested Visits Authorized [id number] Closed 10/03/2024 10/03/2025 1 1 Reason for Visit * Hospital - Outpatient (Routine) - Closed Specialty Diagnoses / Procedures Referred By Contedinson hawthorne Referred To Contact Diagnoses Personal history of hyperplastic colon polyps Procedures COLONOSCOPY Anesthesia - MAC; [facility] ENDOSCOPY Shy Rodriguez MD [address] [address] Phone: tel: fax: [facility] Referral ID Status Reason Start Date Expiration Date Visits Re quested Visits Authorized [id number] Closed 10/03/2024 10/03/2025 1 1 Encounter Details Date Type Department Care Team (Latest Contact Info) Description 12/11/2024 10:54 AM EDT - 12/11/2024 11:59 PM EDT Hospital Encounter [facility] Endoscopy [address] [place] [id number] Shy Rodriguez MD [address] [place] [address] Benjamin Bishop, DO [address] [place] [address] Vahid Beverly CRNA [address] [place] [address] Personal history of hyperplastic colon polyps Discharge Disposition: Home or Self Care Social History Tobacco Use Types Packs/Day Years Used Date Smoking Tobacco: Former Cigarettes Smokeless Tobacco: Never Tobacco Cessation:Counseling Given: Not Answered Alcohol Use Standard Drinks/Week Comments Yes 0 (1 standard drink = 0.6 oz pur e alcohol) social Interpersonal Safety Answer Date Record ed Physical Abuse 12/11/2024 Verbal Abuse 12/11/2024 Comments No Sex and Gender Information Value Date Recorded Sex Assigned at Female 08/19/2024 8:34 AM EST Legal Sex Female 4:22 PM EST Gender Identity Female 08/19/2024 8:34 AM EST Sexual Orientation Straight 08/19/2024 8: 34 AM EST documented as of this encounter Last Filed Vital Signs Vital Sign Reading Time Taken Comments Blood Pressure 155/85 12/11/2024 12:54 PM EDT Pulse 59 12/11/2024 12:54 PM EDT Temperature 36.3 ??C (97.4 ??F) 12/11/2024 12:34 PM E DT Respiratory Rate 14 12/11/2024 12:54 PM EDT Oxygen Saturation 98% 12/11/2024 12:54 PM EDT Inhaled Oxygen Concentration - - Weight 80.7 kg (178 lb) 12/11/2024 11:51 AM EDT Height 165.1 cm (5' 5 ) 12/11/2024 11:51 AM EDT Body Mass Index 29.62 12/11/2024 11:51 AM EDT documented in this encounter Discharge Instructions * Attachments The following attachments cannot be sent through Care Everywhere. * Colon Polyps (Luxembourger) documented in this encounter Medications at Time of Discharge aluminum hydrox-magnesium carb (Gaviscon Extra Strength) 160-105 mg tablet,chewable 0 Refills, Maintenance, 06/23/24 7:51:00 EDT, Partial fill upon patient request if the prescription is for a schedule II opioid drug. 06/23/2024 bisacodyL (DULCOLAX) 5 mg EC tablet Take 2 tablets by mouth right before beginning bowel prep. See instructions provided by the office 2 tablet 11/27/2024 Combivent Respimat 20-100 mcg/actuation inhaler 2 PUFFS INHALATION EVERY 6 HRS NEEDED cyanocobalamin (Vitamin B-12) 1,000 mcg tablet Take 1 tablet (1,000 mcg total) by mouth. 06/23/2024 DULoxetine (CYMBALTA) [address] capsule Take 1 capsule (60 mg total) by mouth 1 (one) time each day. Eliquis 5 mg tablet Take 1 tablet (5 mg total) by mouth 2 (two) times a day. 01/08/2023 fluticasone HFA (FLOVENT HFA) 110 mcg/actuation inhaler Inhale 2 puffs by mouth 2 (two) times a day. 09/30/2024 gabapentin (NEURONTIN) 300 mg capsule Take 2 capsules (600 mg total) by mouth at bedtime. 11/12/2024 levothyroxine (SYNTHROID, LEVOTHROID) 50 mcg tablet TAKE 1 TABLET DAILY, EXCEPTON WEDNESDAYS, TAKE 2 TABLETS FOR A TOTAL OF 8 TABLETS EVERY WEEK. metoprolol succinate (TOPROL-XL) 100 mg 24 hr tablet fn-toe-GJ-vit M-nzaooa-nhskuie (PreserVision AREDS 2 Plus MV) 200 mcg-15 mcg- 5 mg-1 mg capsule 2 times a day, 0 Refills, Maintenance, 06/23/24 7:48:00 EDT, Partial fill upon patient request if the prescription is for a schedule II opioid drug. 06/23/2024 polyethylene glycol (Golytely) 236-22.74-6.74 -5.86 gram solution Take 4L by mouth once for one dose. May substitue any PEG. Starting at 6PM the night before your procedure drink 1 8oz glasses at your own pace until you complete half of the gallon. Finish 2nd half of the gallon 5 hours before your procedure. 4000 mL 11/27/2024 rosuvastatin (CRESTOR) 40 mg tablet Take 1 tablet (40 mg total) by mouth 1 (one) time each day. umeclidinium-lindsay anteroL (ANORO ELLIPTA) 62.5-25 mcg/actuation inhaler vitamin D3-folic acid 2,500 unit- 1 mg tablet Take 2,000 Int'l Units by mouth. 08/09/2009 documented as of this encounter Discharge Disposition Disposition Code Departure Means Destination Home or Self Care documented in this encounter Progress Notes * Shy Rodriguez MD - 12/11/2024 12:00 PM EDT The 5 small colon polyps that were removed were precancerous. Repeat colonoscopy in 3 years. * Lauryn Coleman RN - 12/11/2024 11:53 AM EDT Problem: Cognitive:Periop Procedure - Minor Goal: Knowledge of disease or condition will improve Outcome: Progressing Problem: Sensory:Periop Procedure - Minor Goal: Demonstrates/reports adequate pain control Outcome: Progressing Pt verbalized understanding of all d/c instructions documented in this encounter H&P Notes * Shy Rodriguez MD - 12/11/2024 12:00 PM EDT Pre-Op Diagnosis: Personal history of polyps TA x 5 2020) Proposed Procedure: Colonoscopy Performing Surgeon/MD/Endoscopist: Shy Rodriguez MD Medical/History: Past Medical History: Diagnosis Date Anxiety Depression Emphysema lung (CMS/HCC V24, CMS/HCC V28) GERD (gastroesophageal reflux disease) Hyperlipidemia Hypertension Past Surgical History: Procedure Laterality Date CATARACT EXTRACTION Bilateral CERVICAL FUSION COLONOSCOPY 08/2021 adenoma x 5 (3 yr) COLONOSCOPY 12/2015 int rhoids (5yr) COLONOSCOPY 2010 int rhoids (5yr) HAND SURGERY HYSTERECTOMY JOINT REPLACEMENT NECK SURGERY Cspine TONSILLECTOMY TOTAL HIP ARTHROPLASTY Bilateral 2022 TOTAL KNEE ARTHROPLASTY Left 2017 Medications/Allergies: Prior to Admission medications Medication Sig Start Date End Date Taking? Authorizing Provider aluminum hydrox-magnesium carb (Gaviscon Extra Strength) 160-105 mg tablet,chewable 0 Refills, Maintenance, 06/23/24 7:51:00 EDT, Partial fill upon patient request if the prescription is for a schedule II opioid drug. 06/23/24 Historical Provider, bisacodyL (DULCOLAX) 5 mg EC tablet Take 2 tablets by mouth right before beginning bowel prep. See instructions provided by the office 11/27/24 Shy Rodriguez MD Combivent Respimat 20-100 mcg/actuation inhaler 2 PUFFS INHALATION EVERY 6 HRS NEEDED HistoricalProMD johnny cyanocobalamin (Vitamin B-12) 1,000 mcg tablet Take 1 tablet (1,000 mcg total) by mouth. 06/23/24 Historical Provider, DULoxetine (CYMBALTA) [address] capsule Take 1 capsule (60 mg total) by mouth 1 (one) time each day.Historical Provider, Eliquis 5 mg tablet Take 1 tablet (5 mg total) by mouth 2 (two) times a day. 01/08/23 Historical Provider, levothyroxine (SYNTHROID, LEVOTHROID) 50 mcg tablet TAKE 1 TABLET DAILY, EXCEPTON WEDNESDAYS, TAKE 2 TABLETS FOR A TOTAL OF 8 TABLETS EVERY WEEK. Historical Provider, metoprolol succinate (TOPROL-XL) 100 mg 24 hr tablet Historical Provider, kn-vmz-JE-vit Y-qbvnup-vorbkri (PreserVision AREDS 2 Plus MV) 200 mcg-15 mcg- 5 mg-1 mg capsule 2 times a day, 0 Refills, Maintenance, 06/23/24 7:48:00 EDT, Partial fill upon patient request if the prescription is for a schedule II opioid drug. 06/23/24 Historical Provider, polyethylene glycol (Golytely) 236-22.74-6.74 -5.86 gram solution Take 4L by mouth once for one dose. May substitue any PEG. Starting at 6PM the night before your procedure drink 1 8oz glasses at your own pace until you complete half of the gallon. Finish 2nd half of the gallon 5 hours before your procedure. 11/27/24 Shy Rodriguez MD rosuvastatin (CRESTOR) 40 mg tablet Take 1 tablet (40 mg total) by mouth 1 (one) time each day. Historical Provider, MD umeclidinium-vilanteroL (ANORO ELLIPTA) 62.5-25 mcg/actuation inhaler Historical Provider, vitamin D3-folic acid 2,500 unit- 1 mg tablet Take 2,000 Int'l Units by mouth. 08/09/09 Historical Provider, Patient Age:74 y.o. Vitals: Vitals: 12/11/24 1151 BP: (!) 145/89 Pulse: 62 Resp: 16 Temp: 36.3 ??C (97.4 ??F) SpO2: 98% Physical Exam: Mental Status: Clear HEENT: WNL Heart: WNL Lungs: WNL Abdomen: WNL Extremities: WNL Neuro: WNL Diagnosis/Plan: Surveillance colonoscopy documented in this encounter Procedure Notes * Cleopatra Shaikh RN - 12/11/2024 12:57 PM EDT PT VERBALIZED UNDERSTANDING OF D/C INTRUCTIONS. ALL BELONGINGS SENT HOME WITH PT. PT MEETS CRITERIA FOR D/C. Tolerating snack well and dr rodriguez spoke with pt about results documented in this encounter Plan of Treatment Not on file documented as of this encounter Procedures Procedure Name Priority Date/Time Associated Diagnosis Comments COLONOSCOPY Routine 12/11/2024 12:33 PM EDT Personal history of hyperplastic colon polyps TISSUE EXAM Routine 12/11/2024 12:22 PM EDT Personal history of hyperplastic colon polyps documented in this encounter Results * COLONOSCOPY Anesthesia - MAC; [facility] ENDOSCOPY (12/11/2024 12:33 PM EDT) Anatomical Region Laterality Modality Endoscopy 12/11/2024 12:0 3 PM EDT Impressions 12/11/2024 12:35 PM EDT - Two diminutive polyps in the ascending colon, ? removed with a cold snare. Resected and retrieved. ? - Two diminutive polyps in the descending colon, ? removed with a cold snare. Resected and retrieved. ? - One diminutive polyp in the sigmoid colon, removed ? with a cold snare. Resected and retrieved. ? - Internal hemorrhoids. Recommendation: ?- Await pathology results. ? - Repeat colonoscopy for surveillance based on ? pathology results. Narrative 12/11/2024 12:[address] [facility] GI Patient Name: Altagracia Silva Procedure Date: 12/11/2024 12:03 PM Date of : 1950 Age: 74 Gender: Female Note Status: Finalized Attending MD: Shy Rodriguez MD, Procedure Date No Time: 12/11/2024 Procedure: ? Colonoscopy Indications: ? High risk colon cancer surveillance: Personal history ? of multiple (3 or more) adenomas Providers: ? Shy Rodriguez MD Referring MD: ?Mil Gill MD Medicines: ? Propofol per Anesthesia Complications: ? No immediate complications. Estimated Blood Loss: ? Estimated blood loss: none. Procedure: ? Pre-Anesthesia Assessment: ? - ASA Grade Assessment: III - A patient with severe ? systemic disease. ? After I obtained informed consent, the scope was ? passed under direct vision. Throughout the procedure, ? the patient's blood pressure, pulse, and oxygen ? saturations were monitored continuously.The ? Colonoscope was introduced through the anus and ? advanced to the cecum, identified by appendiceal ? orifice and ileocecal valve. The colonoscopy was ? performed without difficulty. The patient tolerated ? the procedure well. The quality of the bowel ? preparation was good. Findings: ?The perianal and digital rectal examinations were ? normal. ? Two sessile polyps were found in the ascending colon. ? The polyps were diminutive in size. These polyps were ? removed with a cold snare. Resection and retrieval ? were complete. ? Two sessile polyps were found in the descending colon. ? The polyps were diminutive in size. These polyps were ? removed with a cold snare. Resection and retrieval ? were complete. ? A diminutive polyp was found in the sigmoid colon. The ? polyp was sessile. The polyp was removed with a cold ? snare. Resection and retrieval were complete. ? Internal hemorrhoids were found during retroflexion. ? The hemorrhoids were Grade I (internal hemorrhoids ? that do not prolapse). Procedure Code(s): ? --- Professional --- ? 78164, Colonoscopy, flexible; with removal of ? tumor(s), polyp(s), or other lesion(s) by snare ? technique Diagnosis Code(s): ? --- Professional --- ? Z86.010, Personal history of colonic polyps ? D12.2, Benign neoplasm of ascending colon ? D12.4, Benign neoplasm of descending colon ? D12.5, Benign neoplasm of sigmoid colon CPT copyright 2020 [employer]. All rights reserved. The codes documented in this report are preliminary and upon access spec review may be revised to meet current compliance requirements. Shy Rodriguez MD 12/11/2024 12:35:26 PM This report has been signed electronically.Shy Rodriguez MD Number of Addenda: 0 Note Initiated On: 12/11/2024 12:03 PM Scope In: Scope Out: ? Endoscopy Department at [facility] - [address] [place] [address], ? [place] [address] Procedure Note Shy Rodriguez MD - 12/11/2024 [facility] GI Patient Name: Altagracia Silva Procedure Date: 12/11/2024 12:03 PM Date of : 1950 Age: 74 Gender: Female Note Status: Finalized Attending MD: Shy Rodriguez MD, Procedure Date No Time: 12/11/2024 Procedure: Colonoscopy Indications: High risk colon cancer surveillance: Personalhistory of multiple (3 or more) adenomas Providers: Shy Rodriguez MD Referring MD: Mil Gill MD Medicines: Propofol per Anesthesia Complications: No immediate complications. Estimated Blood Loss: Estimated blood loss: none. Procedure: Pre-Anesthesia Assessment: - ASA Grade Assessment: III - A patient with severe systemic disease. After I obtained informed consent, the scope was passed under direct vision. Throughout theprocedure, the patient's blood pressure, pulse, and oxygen saturations were monitored continuously.The Colonoscope was introduced through the anus and advanced to the cecum, identified by appendiceal orifice and ileocecal valve. The colonoscopy was performed without difficulty. The patient tolerated the procedure well. The quality of the bowel preparation was good. Findings: The perianal and digital rectal examinations were normal. Two sessile polyps were found in the ascendingcolon. The polyps were diminutive in size. These polypswere removed with a cold snare. Resection and retrieval were complete. Two sessile polyps were found in the descendingcolon. The polyps were diminutive in size. These polypswere removed with a cold snare. Resection and retrieval were complete. A diminutive polyp was found in the sigmoid colon.The polyp was sessile. The polyp was removed with acold snare. Resection and retrieval were complete. Internal hemorrhoids were found duringretroflexion. The hemorrhoids were Grade I (internal hemorrhoids that do not prolapse). Procedure Code(s): --- Professional --- 73363, Colonoscopy, flexible; with removal of tumor(s), polyp(s), or other lesion(s) by snare technique Diagnosis Code(s): --- Professional --- Z86.010, Personal history of colonic polyps D12.2, Benign neoplasm of ascending colon D12.4, Benign neoplasm of descending colon D12.5, Benign neoplasm of sigmoid colon CPT copyright 2020 [employer]. All rights reserved. The codes documented in this report are preliminary and upon access spec reviewmay be revised to meet current compliance requirements. Shy Rodriguez MD 12/11/2024 12:35:26 PM This report has been signed electronically.Shy Rodriguez MD Number of Addenda: 0 Note Initiated On: 12/11/2024 12:03 PM Scope In: Scope Out: Endoscopy Department at [facility] - [address] [place] [id number] IMPRESSION: - Two diminutive polyps in the ascending colon, removed with a cold snare. Resected andretrieved. - Two diminutive polyps in the descending colon, removed with a cold snare. Resected andretrieved. - One diminutive polyp in the sigmoid colon,removed with a cold snare. Resected and retrieved. - Internal hemorrhoids. Recommendation: - Await pathology results. - Repeat colonoscopy for surveillance based on pathology results. us Shy Rodriguez MD GI~PROCEDURE ORDERABLES Final Result * Tissue exam (12/11/2024 12:22 PM EDT) Final Diagnosis A. Ascending Colon, polyps x2: Tubular adenomas, fragmented. B. Descending Colon, polyps x2: Two tubular adenomas. C. Sigmoid Colon, polyp x1: Tubular adenoma. 12/12/2024 2:47 PM EDT [facility] Gross Description A. Large Intestine, Right/Ascendi ng Colon, polyp x2: Labeled ascending colon polyps x 2 . Received in formalin are four irregular cervantes mucosal tissue fragments, ranging from less than 0.1 cm to 0.3 cm in greatest dimension, which are wrapped in paper and submitted in toto one cassette, four pieces, multiple levels on one slide. B. Large Intestine, Left/Descendi ng Colon, polyp x2: Labeled descending colon polyps x 2 . Received in formalin are two irregular cervantes mucosal tissue fragments, measuring 0.1 cm and 0.2 cm in greatest dimension, which are wrapped in paper and submitted in toto in one cassette, two pieces, multiple levels on one slide. C. Large Intestine, Sigmoid Colon, polyp x1: Labeled Sig colon polyp x 1 . Received in formalin is a 0.4 cm irregular cervantes mucosal tissue fragment which is wrapped in paper and submitted in toto one cassette, one piece, multiple levels on one slide. BERENICE 12/12/2024 2:47 PM EDT [facility] Disclaimer Unless otherwise specified, all tissue is 10% NB formalin fixed and paraffin embedded. 12/12/2024 2:47 PM EDT [facility] Tissue Ascending colon structure / Unknown 12/11/2024 12:22 PM EDT 12/11/2024 2:39 PM EDT Tissue specimen (specimen) Descending colon structure / Unknown 12/11/2024 12:25 PM EDT 12/11/2024 2:39 PM EDT Tissue specimen (specimen) Sigmoid colon structure / Unknown 12/11/2024 12:32 PM EDT 12/11/2024 2:39 PM EDT Shy Rodriguez MD LAB PATHOLOGY ORDERABLES Final Result [facility] [address] [place] [address], documented in this encounter Visit Diagnoses Diagnosis Personal history of hyperplastic colon polyps documented in this encounter Historical Medications * This list may reflect changes made after this encounter. gabapentin (NEURONTIN) 300 mg capsule Take 2 capsules (600 mg total) by mouth at bedtime. 11/12/2024 fluticasone HFA (FLOVENT HFA) 110 mcg/actuation inhaler Inhale 2 puffs by mouth 2 (two) times a day. 09/30/2024 added in this encounter Orders Discharge Count Last Ordered Date First Orde red Date DISCHARGE PATIENT 1 12/11/2024 documented in this encounter Care Teams Color Artist Relationship Specialty Start Date End Date Mil Gill MD [address] [place] [id number] PCP - General Internal Medicine 08/19/24 documented as of this encounter
--- OUTSIDE RECORDS SUMMARY | 2024-12-16 15:33 | XMS_ITS ---
Author Organization Mil Glil MD Address [address] [id number] Care Team Providers Care [employer] Name Role Phone Mil Gill Primary Care Provider REASON FOR VISIT Inhaler Encounters Encounter Location Date Provider Diagnosis Mil Gill MD [address] [facility] [employer] [facility] [address] [place] [phone] 10/16/2024 Mil Gill Plan Of Treatment Next Appt Details Provider Name:Mil Gill , 01/15/2025 01:00:00 PM, [address] [place] [address], [place] [address], [place], [place], [phone], Progress Notes * Altagracia GREEN ADOB:[birth year] (74 yo F)Acc No.[id number]:10/16/2024 Patient:?Altagracia GREEN :1950???Age:74 Y???Sex:Female Address:[address] [place] [address] [place], [address] * true * Date:? Generated for Printi nahum/Zaid/eTransmitting on:?12/16/2024 03:32 PM EDT
--- OUTSIDE RECORDS SUMMARY | 2024-12-16 15:33 | XMS_ITS | Data Portability ---
Author Organization [place] [facility] Syeda Sandoval [place] Address [address] [place] [address] Care Team Providers Care Sugar Boiler Name Role Phone FILEMON KEVINELI Primary Care Provider Assessment Encounter Date Assessment Date Assessment LastModified by Organization Details LastModified Time 06/02/2024 06/02/2024 She is status post left total knee arthroplasty in 2018. She had a transient episode of knee discomfort which has now resolved. This might have been some pes anserine irritation. At this point her exam is benign. I recommend observation. She is pleased with this and will call with any questions or concerns. Suggested a follow-up in 2 years just for surveillance of her total knee replacement. [email or web address] Not available 06/04/2024 16:32:17 Plan of Treatment Reminders Order Date Submit Date Provider Last Modified By Organization Details Last Modified Time Details Appointments None record ed. Lab None record ed. Referral None record ed. Procedures None record ed. Surgeries None record ed. Imaging None record ed. Medication Orders None record ed. Patient TargetsNo targets recorded. Patient InstructionsNo instructions recorded. Reason for Referral None Reported. Problems Name Problem SNOMED Code Status Onset Date Resolution Date Notes Provider Name and Address Organization Details Recorded Time Pain of left knee joint [id number] Active 2023 Fly Salguero MD [address] ,[address], [place], [address], [place] [facility] 06:31:04 Problem Notes None recorded. Procedures Surgical History Date Name Laterality Status Provider Name and Address Organization Details Recorded Time 12/26/19 total knee replacement completed Elizabeth Mclaughlin [place] [facility] 06/02/2024 11:41:32 06/05/20 23 [facility]24 11:42:36 01/24/20 23 [facility] 06/02/2024 11:42:08 hysterectomy completed [facility] 06/02/2024 11:45:02 [facility] 11:45:44 right cataract extraction completed Elizabeth [facility] 06/02/2024 11:45:58 Hand Surgery completed [facility] 06/02/2024 11:46:10 Imaging Results None recorded. Procedure Notes None recorded. Medical Equipment None Reported. Allergies Allergen ID Allergen Name Allergen Category Reaction Reaction Severity Criticality Documentation Date Start Date Code Code System Note Provider Name and Address Organization Details Recorded Time 53131 Substance with sulfonami de structure and antibacte rial mechanism of action (substanc e) medicatio n Not available Not available Not available 06/02/2024 59653 [id number] SNOMED Elizabethramila Mclaughlin [facility] 11:46:35 Medications Name Sig Start Date Stop Date Status Note LastModified by Organization Details LastModified Time cyclobenzapr ine 10 mg tablet TAKE 1 TABLET BY MOUTH THREE TIMES A DAY active Not Available Not Available Not Available prednisone 10 mg tablet active Not Available Not Available Not Available ipratropium 0.5 mg-albuterol 3 mg (2.5 mg base)/3 mL nebulization soln TAKE 1 VIAL EVERY 4 TO 6 HOURS NEEDED. active Not Available Not Available No t Available azithromycin 250 mg tablet active Not Available Not Available Not Available benzonatate 200 mg capsule active Not Available Not Available Not Available metoprolol succinate ER 100 mg tablet,exten ded release 24 hr active Not Available Not Available Not Available tramadol 50 mg tablet TAKE 1 TABLET BY MOUTH THREE TIMES A DAY NEEDED FOR PAIN active Not Available Not Available No t Available amoxicillin 500 mg tablet TAKE 4 CAPSULES BY MOUTH ONE HOUR BEFORE DENTAL APPOINTMENT active Not Available Not Available Not Available levothyroxin e 50 mcg tablet active Not Available Not Available Not Available pantoprazole 40 mg tablet,delay ed release TAKE 1 TABLET BY MOUTH EVERY DAY active Not Available Not Available No t Available codeine 10 mg-guaifenes in 100 mg/5 mL oral liquid TAKE 2.5ML BY MOUTH EVERY 4 TO 6 HOURS NEEDED active Not Available Not Available No t Available levofloxacin 750 mg tablet TAKE 1 TABLET BY MOUTH EVERY DAY active Not Available Not Available No t Available cefdinir 300 mg capsule TAKE ONE CAPSULE BY MOUTH TWICE DAILY active Not Available Not Available No t Available oxycodone 5 mg tablet TAKE 1 TO 2 TABLETS BY MOUTH EVERY 4 HOURS NEEDED FOR SEVERE PAIN active Not Available Not Available Not Available neomycin 3.5 mg/g-polymyx in B 10,000 unit/g-dexam eth 0.1 % eye oint APPLY 1 A SMALL AMOUNT INTO AFFECTED EYE TWICE A DAY DIRECTED FOR 1 WEEK ONLY active Not Available Not Available No t Available rosuvastatin 40 mg tablet active Not Available Not Available Not Available duloxetine 60 mg capsule,armone yed release active Not Available Not Available Not Available Vios Aerosol Delivery System USE DIRECTED active Not Available Not Available No t Available Combivent Respimat 20 mcg-100 mcg/actuatio n solution for inhalation 2 PUFFS INHALATION EVERY 6 HRS NEEDED active Not Available Not Available No t Available Eliquis 5 mg tablet TAKE 1 TABLET BY MOUTH TWICE A DAY FOR 90 DAYS active Not Available Not Available No t Available Eliquis 2.5 mg tablet TAKE 1 TABLET BY MOUTH TWO TIMES A DAY FOR 7 DAYS THEN RESUME HOME DOSE active Not Available Not Available No t Available Anoro Ellipta 62.5 mcg-25 mcg/actuatio n powder for inhalation active Not Available Not Available N ot Available Trelegy Ellipta 100 mcg-62.5 mcg-25 mcg powder for inhalation INHALE 1 PUFF ONCE DAILY active Not Available Not Available No t Available Vitals Date Recorded Body height Body mass index (BMI) Body weight Provider Name and Address Organization Details Last Updated DateTime 06/02/2024 167.64 cm 25.8 kg/m2 96995.78 g Elizabeth Mclaughlin [place] [facility] 06/02/2024 11:56:27 Social History Question Answer Notes LastModified by Organizat ion Details LastModified Time Tobacco Smoking Status Never Smoker Elizabeth Mclaughlin [facility], [place] [facility] 06/02/2024 11:56:38 What Is Your Level Of Alcohol Consumption? None Information not available 06/02/2024 Are You Currently Employed? No Information not available 06/02/2024 Do You Use Any Illicit Or Recreational Drugs? No Information not available 06/02/2024 Are You Currently In School? No Information not available 06/02/2024 Do You Or Have You Ever Used Any Other Forms Of Tobacco Or Nicotine? No Information not available 06/02/2024 Sex: Unknown Functional Status None recorded. Mental Status None recorded. Family History Nothing Reported. Medical History Condition Response Heart Disease Y COPD Y Gynecological HistoryNo gynecological history recorded. Obstetrics History GPAL:G 0 P 0 0 0 0 Past Encounters Encounter ID Performer Location Encounter Start Date Encounter Closed Date Diagnosis/Indication Diagnosis SNOMED-CT Code Diagnosis ICD10 Code Diagnosis Note [id number] Fly Salguero MD [address] [address] 06/02/2024 10:54:06 06/02/2024 11:37:39 Pain of left knee joint 5061140508 06160 M25.562 History of total knee arthroplasty 9858518357 105 Z96.652 Health Concerns Section Related Observation LastModified by Organization Detai ls LastModified Time None Recorded Concern Status LastModified by Organization Details LastModified Time None Recorded Advance Directives Directive None Recorded Payers Encounter Date Sequence Insurance Name Policy Number Policy Kruse Covered Member ID Kruse Member ID Guarantor Name 06/02/2024 1 [place]ICARE [place] Altagracia Silva [id number] Altagracia Silva 06/02/2024 2 [id number] [id number] Altagracia Silva [id number] Altagracia Silva Notes Date Note Type Note Provider Name and Address Organization Details Recorded Time 06/02/2024 text/html 74-year-old fema le here for an evaluation of left knee pain. This started towards the end of April without any specific injury. Her history is remarkable for a left total knee replacement performed by Dr. Manriquez on 12/25/2017. After that she did well. She has had a left total hip replacement as well about a year ago and has done well with that. In any event, the left knee symptoms started without trauma, predominantly some pain and medial knee swelling, not the entire knee. She never had any fevers or chills. She backed off activities and since that time her symptoms have essentially resolved. She is not having any issues today. She did have some x-rays done on 04/30/2024 due to her symptoms and brings those in today for review. She has a history of basal cell cancer, COPD, high blood pressure, hypothyroidism, and acid reflux. Current non-smoker. She is retired. Fly Salguero MD [address], [place], [address], [place] [facility] 06/04/2024 16:32:36 OBGyn Episode No OBEpisode recorded.
--- OUTSIDE RECORDS SUMMARY | 2024-12-16 15:33 | XMS_ITS | Encounter Summary ---
Author Organization [place] [address] Care Team Providers Care Loan Operations Manager Name Role Phone Mil Gill MD Primary Care Provider [phone] Encounter Details Date Type Department Care Team (Late st Contact Info) Description 12/15/2024 Telephone Gastroenterology - [address] [place] [address] Wilma Shin MA Social History Tobacco Use Types Packs/Day Years Used Date Smoking Tobacco: Former Cigarettes Smokeless Tobacco: Never Alcohol Use Standard Drinks/Week Comments Yes 0 [...] as of this encounter Progress Notes * Wilma Shin MA - 12/15/2024 8:09 AM EDT Spoke with pt per Dr Garcia the 5 small colon polyps that were removed were precancerous. Repeat colonoscopy in 3 years. * Wilma Shin MA - 12/15/2024 8:09 AM EDT ----- Message from Paula Brown MD sent at 12/12/2024 5:17 PM EDT ----- The 5 small colon polyps that were removed were precancerous. Repeat colonoscopy in 3 years. documented in this encounter Plan of Treatment Not on file documented as of this encounter Visit Diagnoses Not on filedocumented in this encounter Care Teams Loan Operations Manager Relationship Specialty Start Date End Date Mil Gill MD [address] [place] [id number] PCP - General Internal Medicine 08/19/24 documented as of this encounter
--- OUTSIDE RECORDS SUMMARY | 2024-12-16 15:33 | XMS_ITS ---
Author Organization Mil Gill MD Address [address] [place] [phone] Care Team Providers Care Collar Trimmer Name Role Phone Mil Gill Primary Care Provider Reason For Referral Reason Duplicate Diagnosis 1 [...] Location Date Provider Diagnosis Mil Gill MD [address] [phone] 11/24/2024 Mil Gill Spinal stenosis, lumbar region with neurogenic claudication M48.062 Assessments Encounter Date Diagnosis (ICD Code) Assessment Notes Treatment Notes Treatment Clinical Notes Section Notes 11/24/2024 Spinal stenosis, lumbar region with neurogenic claudication (ICD-10 - M48.062) Plan Of Treatment Referrals Referral Date Details 11/25/2024 11/25/2024, Duplicat e, Neuroscience [facility] Referral Next Appt Details Provider Name:Mil Gill , 01/15/2025 01:00:00 PM, [address] [place] [address], [phone], Progress Notes * Altagracia GREEN ADOB:[birth year] (74 yo F)Acc No.[id number]:11/24/2024 Patient:?RICARDO, Altagracia A :1950???Age:74 Y???Sex:Female Address:[address] [place], [place] [address], [address] Subjective: * Chief Complaints: * ???Test results [...] true * Date:? Generated for Christina sidhu/Zaid/Kalebsmitting on:?12/16/2024 03:33 PM EDT Consultation Request Notes Referral Date Referring Provider Referred Provider Not 11/25/2024 Mil Gill [facility] Referral, Neuros cience Duplicate
--- OUTSIDE RECORDS SUMMARY | 2024-12-16 15:33 | XMS_ITS | Patient Health Record ---
Author Organization [facility] Address [address] [place] [address] [phone] Care Team Providers Care Supervisor [employer] Name Role Phone [facility] Primary Care Provider [phone] Allergies Allergen (clinical drug ingredient) Drug/Non Drug [...] and Electronically Signed by: GRACE MONZON MD --- --------- Original Report -------- EXAM: MR LUMBAR SPIN E WITHOUT CONTRAST [...] and Electronically Signed by: GRACE MONZON MD MR Thoracic [...] and Electronically Signed by: GRACE MONZON MD --- --------- Original Report -------- EXAM: MR THORACIC SP INE WITHOUT CONTRAST [...] lesion s are identified. IMPRESSION: 1. Multilevel degenerative changes [...] and Electronically Signed by: GRACE MONZON MD TISSUE EXAM (Not yet reviewe d by provider) Interpretation: Performing Lab: Notes/Report: Final Diagnosis A. Ascending Colon, polyps x2: Tubular adenomas, fragmented. B. Descending Colon, polyps x2: Two tubular adenomas. C. Sigmoid Colon, polyp x1: Tubular adenoma. Gross Description A. Large Intestine, Right/Ascending Colon, polyp x2: Labeled ascending colon polyps x 2 . Received in formalin are four irregular cervantes mucosal tissue fragments, ranging from less than 0.1 cm to 0.3 cm in greatest dimension, which are wrapped in paper and submitted in toto one cassette, four pieces, multiple levels on one slide. B. Large Intestine, Left/Descending Colon, polyp x2: Labeled descending colon polyps [...] piece, multiple levels on one slide. BERENICE Disclaimer Unless otherwise specified, all tissue is 10% NB formalin fixed and paraffin embedded. CT Chest High Resolution WO Reviewed date:09/16/2024 12:17:18 PM Interpretation: Performing Lab: Notes/Report: PFTS with DLCO Reviewed date:04/30/2024 08:41:38 AM Interpretation: Performing Lab: Notes/Report: Echocardiogram Reviewed date:06/17/2024 03:08:27 PM Interpretation: Performing Lab: Notes/Report: Exercise Stress Nuclear Test Reviewed date:06/11/2024 02:07:20 PM Interpretation: Performing Lab: Notes/Report: CR Knee LT 4 or more View Reviewed date:05/02/2024 10:20:42 AM Interpretation: Performing Lab: Notes/Report: Original Ordering Provider: MIL COLBERT MD [facility] IMGEAP Reviewed date:08/29/2024 10:48:11 AM Interpretation: Performing Lab: Notes/Report: See Note [facility], a member of [employer] History: Chronic obstructive pulmonary disease. Comparison: No comparison imaging at this institution. Technique: Helical volumetric imaging of the thorax was performed without IV contrast. DLP: 577.05 mGy/cm GE Beyond the Rackpeed VCT Iterative reconstruction technique Findings: The trachea and central bronchial tree are patent. Mild, diffuse bronchial wall thickening is seen bilaterally. There is patchy centrilobular emphysema favoring the upper lobes. A mild, lacy reticular pattern is present in the subpleural lung bilaterally, with an apical basal gradient, suggesting mild interstitial fibrosis. There are rare a 3 mm solid, noncalcified pulmonary nodules. No suspicious nodule is identified. No pleural or pericardial effusions are identified. Mild enlargement of the left heart chambers is seen. Coronary artery calcification is noted. The thyroid gland is diminutive and without focal nodule. No thoracic lymphadenopathy is seen. A small portion of the upper abdomen included on the lowest images through the thorax is remarkable for a fluid-filled diverticulum arising from the gastric cardia and tiny calculi within the dependent portion of the gallbladder. A 2 mm nonobstructing calculus is seen in the upper pole of the right kidney. No significant osseous abnormality is noted. IMPRESSION: Impression: 1. Centrilobular emphysema. 2. Probable mild interstitial pulmonary fibrosis. 3. No suspicious pulmonary nodule. Consider lung screening program if there are risk factors [place] ([id number]) -------- FINAL REPORT -------- Dictated By: Cassie Castaneda Dictated Date: 08/20/2024 15:22 ET Assigned Physician: Cassie Castaneda Reviewed and Electronically Signed By: Cassie Castaneda Signed Date: 08/20/2024 15:31 ET Workstation ID: [id number] Transcribed By: Self Edit Transcribed Date: 08/20/2024 15:22 ET See Note History: Chronic obstructive pulmonary disease. Comparison: No comparison imaging at this institution. Technique: Helical volumetric imaging of the thorax was performed without IV contrast. DLP: 577.05 mGy/cm GE Beyond the Rackpeed VCT Iterative reconstruction technique Findings: The trachea and cent ral bronchial tree are patent. Mild, diffuse bronchial wall thickening is seen bilaterally. There is patchy centrilobular emphysema favoring the upper lobes. A mild, lacy reticular pattern is present in the subpleural lung bilaterally, with an apical basal gradient, suggesting mild interstitial fibrosis. There are rare a 3 m m solid, noncalcified pulmonary nodules. No suspicious nodule is identified. No pleural or pericardial effusions are identified. Mild enlargement of the left heart chambers is seen. Coronary artery calcification is noted. The thyroid gland is diminutive and without focal nodule. No thoracic lymphadenopathy is seen. A small portion of t he upper abdomen included on the lowest images through the thorax is remarkable for a fluid-filled diverticulum arising from the gastric cardia and tiny calculi within the dependent portion of the gallbladder. A 2 mm nonobstructing calculus is seen in the upper pole of the right kidney. No significant osseo us abnormality is noted. IMPRESSION: Impression: 1. Centrilobular emphysema. 2. Probable mild interstitial pulmonary fibrosis. 3. No suspicious pulmonary nodule. Consider lung screening program if there are risk factors [place] lung [place] ([id number]) -------- FINAL REPOR T -------- Dictated By: Cassie Suarez i Dictated Date: 08/20/2024 15:22 ET Assigned Physician: Cassie Castaneda Reviewed and Electronically Signed By: Cassie Castaneda Signed Date: 024 15:31 ET Workstation ID: [id number] Transcribed By: Self Edit Transcribed Date: 08/20/2024 15:22 ET PDF Report Reviewed date:03/19/2024 10:23:14 PM Interpretation: Performing Lab:[facility], [address] [facility], Phone - [phone], Director - Susy Notes/Report: LP+Non-HDL Cholesterol-56970 5 Reviewed date:03/19/2024 10:23:14 PM Interpretation: Performing Lab:[facility], [address] [facility], [place], Phone - [phone], Director - Susy Notes/Report: Cholesterol, Total 129 100-199 mg/dL Triglycerides 131 0-149 mg/dL HDL Cholesterol 48 >39 mg/dL VLDL Cholesterol Fred 23 5-40 mg/dL LDL Chol Calc ([facility]) 58 0-99 mg/dL Non-HDL Cholesterol 81 0-129 mg/dL Comp. Metabolic Panel (14)-3 [id number] Reviewed date:03/19/2024 10:23:14 PM Interpretation: Performing Lab:[facility], [address] [facility], Phone - [phone], Director - Susy Notes/Report: Glucose 95 70-99 mg/dL BUN 16 8-27 mg/dL Creatinine 0.84 0.57-1.00 mg/dL eGFR 72 >59 mL/min/1.73 BUN/Creatinine Ratio 19 12-28 Sodium 144 134-144 mmol/L Potassium 4.9 3.5-5.2 mmol/L Chloride 106 96-106 mmol/L Carbon Dioxide, Total 25 20-29 mmol/L Calcium 9.6 8.7-10.3 mg/dL Protein, Total 6.3 6.0-8.5 g/dL Albumin 4.5 3.8-4.8 g/dL Globulin, Total 1.8 1.5-4.5 g/dL Bilirubin, Total 1.2 0.0-1.2 mg/dL Alkaline Phosphatase 87 44-121 IU/L AST (SGOT) 33 0-40 IU/L ALT (SGPT) 28 0-32 IU/L Vitamin D, 90-Qpotpna-650726 Reviewed date:03/19/2024 10:23:14 PM Interpretation: Performing Lab:[facility], [address] [facility], [place], Phone - [phone], Director - Susy Notes/Report: Vitamin D, 25-Hydroxy 42.8 30.0-100.0 ng/mL Vitamin D deficiency has been defined by the [place] of [employer] and an Endocrine Society practice guideline as a level of serum 25-OH vitamin D less than 20 ng/mL (1,2). The Endocrine Society went on to further define vitamin D insufficiency as a level between 21 and 29 ng/mL (2). 1. IOM ([place] of [employer]). 2010. Dietary reference intakes for calcium and D. [place]: The National Academies Press. 2. Lashanda MF, Jailene NC, Susan AVILEZ, et al. Evaluation, treatment, and prevention of vitamin D deficiency: an Endocrine Society clinical practice guideline. JCEM. 2010; 96(7):1911-30. Reticulocyte Count-[id number] Reviewed date:03/19/2024 10:23:14 PM Interpretation: Performing Lab:[facility], [address] [place] [address], Phone - [phone], Director - Leidyy Notes/Report: Reticulocyte Count 1.6 0.6-2.6 % CBC With Differential/Platel et-[id number] Reviewed date:03/19/2024 10:23:14 PM Interpretation: Performing Lab:[facility] [place], [address] [place] [address], Phone - [phone], Director - Leidyy Notes/Report: WBC 6.0 3.4-10.8 x10E3/uL RBC 4.38 3.77-5.28 x10E6/uL Hemoglobin 14.1 11.1-15.9 g/dL Hematocrit 43.9 34.0-46.6 % MCV 100 79-97 fL MCH 32.2 26.6-33.0 pg MCHC 32.1 31.5-35.7 g/dL RDW 12.1 11.7-15.4 % Platelets 227 150-450 x10E3/uL Neutrophils 60 Not Estab. % Lymphs 23 Not Estab. % Monocytes 12 Not Estab. % Eos 3 Not Estab. % Basos 1 Not Estab. % Neutrophils (Absolute) 3.7 1.4-7.0 x10E3/uL Lymphs (Absolute) 1.4 0.7-3.1 x10E3/uL Monocytes(Absolute) 0.7 0.1-0.9 x10E3/uL Eos (Absolute) 0.2 0.0-0.4 x10E3/uL Baso (Absolute) 0.1 0.0-0.2 x10E3/uL Immature Granulocytes 1 Not Estab. % Immature Grans (Abs) 0.0 0.0-0.1 x10E3/uL TSH-[id number] Reviewed date:03/19/2024 10:23:14 PM Interpretation: Performing Lab:[facility] [address] [place] [address], Phone - [phone], Director - Susy Notes/Report: TSH 3.380 0.450-4.500 uIU/mL Thyroxine (T4) Free, Direct- [id number] Reviewed date:03/19/2024 10:23:14 PM Interpretation: Performing Lab:[facility] [place], [address] [place] [address], Phone - [phone], Director - Susy Notes/Report: T4,Free(Direct) 1.13 0.82-1.77 ng/dL Vitamin [id number] Reviewed date:03/19/2024 10:23:14 PM Interpretation: Performing Lab:[facility], [address] [facility], [place], Phone - [phone], Director - Susy Notes/Report: Vitamin B12 880 988-9843 pg/mL Hemoglobin X4m-[id number] Reviewed date:03/19/2024 10:23:14 PM Interpretation: Performing Lab:[facility] [place], [address] [facility], [place], Phone - [phone], Director - Susy Notes/Report: Hemoglobin A1c 5.6 4.8-5.6 % . Prediabetes: 5.7 - 6.4 Diabetes: >6.4 Glycemic control for adults with diabetes: <7.0 Reason For Referral Reason faxed Diagnosis 1 Pain in left knee (M 25.562) Referral Organization [facility] Referring Provider First Name Mil Referring Provider Last Name Jairo Referring Provider Speciality Internal edicine Referred Provider Ubaldo Jasso Referred Provider Specialty Orthopedic S urgery General Notes Vidya LU 04/04 10:35:04 AM >Noelle blanchard called from Dr. Manriquez office he is retiring not accepting any new patients. Is there somewhere else you would like to refer to ?, Mil [facility]bert 05/09/2024 02:54:55 PM EDT > Can sent to [facility], Anh LU 05/12/2024 08:52:04 AM EDT > patient called [facility] [phone] Brooke R 05/12/2024 11:35:37 AM > updated referral per patient request Referral Priority Routine Diagnosis 1 Pain in left knee (M 25.562) Referral Organization [facility] Referring Provider First Name Mil Referring Provider Last Name Jairo Referring Provider Speciality Internal M edicine Referred Provider Mickey Tejeda Referred Provider Specialty Orthopedic S urgery General Notes Anh LU 05/2024 11:37:30 AM > updated referral [facility] Referral Priority Routine Reason faxed Diagnosis 1 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 (I25.118) Referral Organization [facility] Referring Provider First Name Mil Referring Provider Last Name Jairo Referring Provider [facility] Internal edicine Referred Provider Cornelio Gonzalez Referred Provider Specialty Cardiology General Notes [facility], Vidya 06/03 10:56:41 AM >faxed Referral Priority Routine Reason faxed Diagnosis 1 Chronic obstructive pulmonary disease, unspecified (J44.9) Referral Organization [facility] Referring Provider First Name Mil Referring Provider Last Name Jairo Referring Provider [facility] Internal edicine Referred Provider Claus Kramer Referred Provider Specialty Pulmonology General Notes [facility], Vidya 07/04 02:46:16 PM >faxed Referral Priority Routine Referral Appointment Date 09/17/2024 Reason faxed Diagnosis 1 Spinal stenosis, lum bar region with neurogenic claudication (M48.062) Referral Organization [facility] Referring Provider First Name Mil Referring Provider Last Name Jairo Referring Provider [facility] edicine Referred Provider Natalie Mathews Referred Provider Specialty Pain Medicin e General Notes [facility], Vidya 11/01 03:52:45 PM >faxed Referral Priority Routine Reason faxed Diagnosis 1 Spinal stenosis, lum bar region with neurogenic claudication (M48.062) Referral Organization [facility] Referring Provider First Name Mil Referring Provider Last Name Jairo [facility]erred Provider [facility] Ref[facility], [facility] Referred Provider Specialty Neurosurgery General Notes [facility], Vidya 11/02 01:16:23 PM >Completed [facility] referral form and faxed Referral Priority Routine Reason Duplicate Diagnosis 1 Spinal stenosis, lum bar region with neurogenic claudication (M48.062) Referral Organization [facility] Referring Provider First Name Mil Referring Provider Last Name Jairo Referring Provider [facility] edicine Referred Provider [facility] Referral, [facility] [employer] Referred Provider Specialty Neurosurgery General Notes Duplicate Referral Referral Priority Routine Medications Medication SIG (Take, Route, Frequency, Duration) Notes Start Date End Date Status Cyanocobalamin 1000 MCG 1 lozenge Orally Once a Week Active Ipratropium-Albuterol 20-100 MCG/ACT 2 Puffs Inhalation every 6 hrs As needed 03/17/2024 Active Eliquis 5 MG 1 Tablet Orally Twic e a day for 90 days Active Claritin 10 MG 1 tablet Orally Once a day for 30 day(s) Active Fluticasone Propionate (Inhal) 100 MCG/ACT 1 puff [...] 1 CAPSULE ONCE DAILY for 90 Active Levothyroxine Sodium 50 MCG TAKE 1 TABLET DAILY, EXCEPTON WEDNESDAYS, TAKE 2 TABLETS FOR A TOTAL OF 8 TABLETS EVERY WEEK. for 90 Active Metoprolol Succinate ER 100 MG TAKE 1 TABLET ONCE DAILY for 90 Active Anoro Ellipta 62.5-25 MCG/INH 1 puff Inhalation Once a day 05/28/2024 Active Immunizations Vaccine Route Administration Date Status Comme nts Pneumococcal polysaccharide PPV23 Unknown 08/25/2013 Administered RSV-Arexby Unknown 07/17/2023 Administered Td (adult) preservative free Unknown 12/05/2005 Administered Zoster Unknown 02/24/2013 Administered Pneumococcal polysaccharide PCV 13 IM Intramuscular 09/11/2016 Administered Gdsteydkg-Xzgbhpunl-Cw al IM Intramuscular 06/13/2018 Administered *Influenza, High Dose Seasonal, Quadrivatent Unknown 06/01/2021 Administered *Influenza, High Dose Seasonal, Quadrivatent Unknown 05/27/2020 Administered *PREVNAR 20 IM Intramuscular 09/18/2023 Administered mfd b y Wyeth *Shingrix Unknown 03/03/2019 Administered *Shingrix Unknown 12/27/2018 Administered COVID 19 (Pfizer 12+) Unknown 12/13/2021 Administered COVID COMIRNATY Pfizer Unknown 07/03/2023 Administered COVID-19 Pfizer BiValent Booster Unknown 06/05/2022 Administered YNTOG-77-Fcyibt Vaccine Unknown 06/07/2021 Administered FZDRJ-56-Fyxywt Vaccine Unknown 11/03/2020 Administered MBSWK-49-Ktaool Vaccine Unknown 10/13/2020 Administered Hep A, adult Unknown 09/02/2019 Administered Influenza, high dose seasonal Unknown 06/17/2017 Administered Influenza, high dose seasonal Unknown 05/24/2016 Administered Influenza (Fluad) Unknown 05/19/2023 Administered Influenza (Fluad) Unknown 06/02/2022 Administered Influenza Unknown 07/11/2019 Administered Td (adult) preservative free IM Intramuscular 04/28/2019 Administered Social History Tobacco Use: Social History Observation [...] Tobacco non-user Ex-heavy c igarette smoker (20-30/day) Section Notes: Alcohol History: Consumed so cially, quit drinking in 1994 Alcohol History: Consumed so cially, quit drinking in 1994 Alcohol History: Consumed so cially, quit drinking in 1994 Alcohol History: Consumed so cially, quit drinking in 1994 Alcohol History: Consumed so cially, quit drinking in 1994 Alcohol History: Consumed so cially, quit drinking in 1994 Alcohol History: Consumed so cially, quit drinking in 1994 Problems Problem Type SNOMED Code ICD Code Onset Dates Problem Status W/U Status Risk Notes Problem Pernicious anemia (91746902) Vitamin B12 deficiency anemia due to intrinsic factor deficiency (D51.0) Active confirmed Problem Thrombophilia (128259000) Other thrombophilia (D68.69) Active confirmed Problem Autoimmune thyroiditis (48999222) Autoimmune thyroiditis (E06.3) Active confirmed Problem Vitamin D deficiency (13191205) Vitamin D deficiency, unspecified (E55.9) Active confirmed Problem Mixed hyperlipidemia (576013763) Mixed hyperlipidemia (E78.2) Active confirmed Problem Spinal muscular atrophy (5834725) Spinal muscular atrophy, unspecified (G12.9) Active confirmed Problem Sensorineural hearing loss of bilateral ears (disorder) (874253032) Sensorineural hearing loss, bilateral (H90.3) Active confirmed Problem Atherosclerotic heart disease of [place] coronary artery without angina pectoris (310006459096032) Atherosclerotic heart disease of [place] coronary artery without angina pectoris (I25.10) Active confirmed Problem Mitral valve disorder (35678413) Nonrheumatic mitral valve disorder, unspecified (I34.9) Active confirmed Problem Supraventricular tachycardia (6606644) Supraventricular tachycardia (I47.1) Active confirmed Problem Paroxysmal atrial fibrillation (809443791) Paroxysmal atrial fibrillation (I48.0) Active confirmed Problem Chronic obstructive pulmonary disease (26580905) Chronic obstructive pulmonary disease, unspecified (J44.9) Active confirmed Problem Cervical spondylosis without myelopathy (441891460) Other spondylosis with radiculopathy, cervical region (M47.22) Active confirmed Problem Thoracic spondylosis without myelopathy (172716617) Other spondylosis with radiculopathy, thoracic region (M47.24) Active confirmed Problem Radiculopathy due to lumbar intervertebral disc disorder (495018362822200) Intervertebral disc disorders with radiculopathy, lumbar region (M51.16) Active confirmed Problem Acquired trigger finger (0854802) Trigger finger, left middle finger (M65.332) Active confirmed Problem Impaired fasting glucose (198514891) Impaired fasting glucose (R73.01) Active confirmed Problem Long-term current use of anticoagulant (181791935) FDC (current) use of anticoagulants (Z79.01) Active confirmed Problem Artificial knee joint present (374148400727) Presence of left artificial knee joint (Z96.652) Active confirmed Problem Neurogenic claudication (288486036) Spinal stenosis, lumbar region with neurogenic claudication (M48.062) Active confirmed Problem Chronic obstructive pulmonary disease with acute lower respiratory infection (893846238) Chronic obstructive pulmonary disease with (acute) lower respiratory infection (J44.0) Active confirmed Problem Angina co-occurrent and due to coronary arteriosclerosis (disorder) (52860347557284672 ) Atherosclerotic heart disease of [place] coronary artery with other forms of angina pectoris (I25.118) Inactive confirmed Problem Low back pain (362630721) Low back pain (M54.5) Inactive confirmed Problem Localized, primary osteoarthritis of the pelvic region and thigh (561032208) Unilateral primary osteoarthritis, left hip (M16.12) Problem resolved confirmed Vital Signs Heart Rate 72 /min 11/12/2024 Temperature 97.2 degrees Fahrenheit 11/12/2024 Oximetry 94 % 11/12/2024 Height 5 ft 4.25 in in 11/12/2024 Weight 179 lbs 11/12/2024 BMI 30.48 kg/m2 11/12/2024 Encounters Encounter Location Date Provider Diagnosis Mil Colbert MD [address] [id number] 12/24/2023 Mil Colbert Chronic obstructive pulmonary disease with (acute) lower respiratory infection J44.0 and Bronchopneumonia, unspecified organism J18.0 Mil Col[facility] MD [address] [id number] 01/01/2024 Mil Colbert Chronic obstructive pulmonary disease with (acute) lower respiratory infection J44.0 Mil Colbert MD [address] [id number] 03/17/2024 Mil Colbert Chronic obstructive pulmonary disease, unspecified J44.9 ; Paroxysmal atrial fibrillation I48.0 ; Other thrombophilia D68.69 ; Atherosclerotic heart disease of [place] coronary artery without angina pectoris I25.10 ; Nonrheumatic mitral valve disorder, unspecified I34.9 ; Autoimmune thyroiditis E06.3 ; Impaired fasting glucose R73.01 ; Mixed hyperlipidemia E78.2 ; Other spondylosis with radiculopathy, cervical region M47.22 ; Spinal muscular atrophy, unspecified G12.9 ; Vitamin B12 deficiency anemia due to intrinsic factor deficiency D51.0 and Vitamin D deficiency, unspecified E55.9 Mil Colbert MD [address] [id number] 04/15/2024 Mil Colbert Chronic obstructive pulmonary disease, unspecified J44.9 Mil Colbert MD [address] [id number] 04/30/2024 Mil Colbert Pain in left knee M25.562 Mil Colbert MD [address] [id number] 07/09/2024 Mil Colbert Acute upper respirat ory infection, unspecified J06.9 and Chronic obstructive pulmonary disease, unspecified J44.9 Mil Colbert MD [address] [id number] 07/11/2024 Mil Colbert Chronic obstructive pulmonary disease with (acute) lower respiratory infection J44.0 Mil Colbert MD [address] [place] [address] [id number] 10/14/2024 Mil Colbert Dorsalgia, unspecifi ed M54.9 Mil Colbert MD [address] [place] [address] [id number] 11/12/2024 Mil Colbert Spinal stenosis, lum bar region with neurogenic claudication M48.062 and Other spondylosis with radiculopathy, thoracic region M47.24 Mil Colbert MD [address] [place] [address] [id number] 12/24/2023 Mil Colbert MD [address] [place] [address] [id number] 03/01/2024 Mil Colbert MD [address] [place] [address] [id number] 03/04/2024 Mil Colbert MD [address] [place] [address] [id number] 03/04/2024 Mil Colbert MD [address] [place] [address] [id number] 04/30/2024 Mil Colbert 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 I25.118 Mil Colbert MD [address] [place] [address] [id number] 05/01/2024 Mil Colbert Pain in left knee M25.562 Mil Colbert MD [address] [place] [address] [id number] 05/08/2024 Mil Colbert MD [address] [place] [address] [id number] 05/27/2024 Mil Colbert MD [address] [place] [address] [id number] 06/11/2024 Mil Colbert 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 I25.118 Mil Colbert MD [address] [facility] [address] [place] [address] [id number] 06/17/2024 [facility] [address] [place] [address] [id number] 07/10/2024 Mil Colbert MD [address] [facility] [address] [place] [address] [id number] 07/17/2024 Mil Colbert Chronic obstructive pulmonary disease, unspecified J44.9 Mil Colbert MD [address] [id number] 10/16/2024 Mil Colbert MD [address] [id number] 11/24/2024 Mil Jairo Spinal stenosis, lum bar region with neurogenic claudication M48.062 Mil Colbert MD [address] [id number] 05/28/2024 Mil Jairo Chronic obstructive pulmonary disease, unspecified J44.9 Assessments Encounter Date Diagnosis (ICD Code) Assessment Notes Treatment Notes Treatment Clinical Notes Section Notes 12/24/2023 Bronchopneumonia, unspecified organism (ICD-10 - J18.0) She was given 3 courses of antibiotics in [place] but her chest x-ray did not improve and as discussed it may take several weeks if not months for chest x-ray to improve and resolved. Therefore serial x-rays without improvement does not always justify multiple courses of antibiotics. Her pneumonia should have been adequately treated with the first course of antibiotic and the remainder of her symptoms are the residual symptoms from her original viral infection. Treat as above. 12/24/2023 Chronic obstructive pulmonary disease with (acute) lower respiratory infection (ICD-10 - J44.0) She had gone to [place] and became ill with a cough. She went to a walk-in center where she was treated for pneumonia based on an x-ray that showed some infiltrate in the right lower lobe. Records are not available for review. She was given azithromycin and updraft therapy and what sounds like a IM steroid injection. She had persistent cough and had gone back several times where she was given new and different course of antibiotics including cefdinir and currently levofloxacin. She still has a cough and wheezing. At the present time I suspect this is a COPD exacerbation due to her original viral infection. As discussed this may take several weeks to resolve but can switch medical therapy to Trelegy. Her peak flows shows minimal change with activity therefore she does not have severe hyperreactivity of her airways. Her peak flows are slightly diminished which may be a combination of her acute illness along with her underlying COPD. Recheck in 1 week. 01/01/2024 Chronic obstructive pulmonary disease with (acute) lower respiratory infection (ICD-10 - J44.0) She is much better. She is able to sleep. She can laugh without coughing. She still has a soft wheeze with forced expiration and recommend continuing Trelegy for at least 1 month and then resuming Anoro 04/15/2024 Chronic obstructive pulmonary disease, unspecified (ICD-10 - J44.9) She still has some cough and some shortness of breath. At this point her echocardiogram shows no pathology such as depressed LV function or diastolic dysfunction or pulmonary hypertension. Therefore this is mainly COPD. Her wheezing is not as well-controlled with current inhaler therapy therefore recommend adjusted inhaler therapy to include Trelegy and continue Combivent on as needed basis to help control her symptoms. 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 This feels like a torn medial meniscus to her. At the present time there is no tenderness on exam. She says sometimes she can walk on this and sometimes she cannot. When she develops pain it is significant enough to cause her to buckle and not be able to walk. This sounds as if it is intra-articular or periarticular. Recommend x-ray to evaluate prosthesis and follow-up with orthopedics to see if the pain originates from bony structures adjacent to the prosthesis versus neurologic.Of note there has not been any recent trauma 05/01/2024 Pain in left knee (ICD-10 - M25.562) 05/28/2024 Chronic obstructive pulmonary disease, unspecified (ICD-10 - J44.9) 06/11/2024 Atherosclerotic heart disease of [place] coronary artery with other forms of angina pectoris (ICD-10 - I25.118) 07/09/2024 Acute upper respiratory infection, unspecified (ICD-10 - J06.9) She recently developed a cold that was COVID-negative. At the present time her lungs are clear and this is all upper respiratory related. She can use any [id number] preparation she likes. If she does get complications she will call and then medical therapy can be adjusted 07/09/2024 Chronic obstructive pulmonary disease, unspecified (ICD-10 - J44.9) She still has some shortness of breath with exertion. She had a cardiac cath did not show any obstructive disease. At the present time recommend she use her rescue inhaler when she has symptoms otherwise can check CAT scan of chest given that her DLCO was only 70%. She will also need a 6-minute walk test to see if there is any hypoxia requiring oxygen therapy. Otherwise her spirometry did not show any significant obstructive disease. 07/11/2024 Chronic obstructive pulmonary disease with (acute) lower respiratory infection (ICD-10 - J44.0) See prior message for additional history. She feels much better with the use of prednisone and azithromycin. Her lung exam reveals some wheezing. She probably had progression of her upper respiratory infection with complications now. Recommend continue and complete prednisone and taper by 10 mg every 5 days to off and complete antibiotic therapy. Of note she will be traveling next week and if she is not fully recovered she may need to cancel her travel plans. 07/17/2024 Chronic obstructive pulmonary disease, unspecified (ICD-10 - J44.9) 10/14/2024 Dorsalgia, unspecified (ICD-10 - M54.9) She started developing right sided lower back pain. It worsens when she gets up and moves around and improves with the use of Tylenol. She had a CAT scan in the past that showed a 2 mm stone and she is wondering if this is a kidney stone as her CAT scan is reviewed the 2 mm stone is in the right pole and nonobstructing therefore it is unlikely that this is the cause of her pain. She has known degenerative disease in her lumbar spine and her pain is at the top of the lumbar spine and lower thoracic spine. There is a little step-off the spine at that location. She most likely has degenerative joint disease causing her pain with radiation to the right flank. She can try a variety of options including lidocaine patches or TENS unit or heat or steroid injections. At the present time she feels she will do okay with Tylenol at bedtime and this is a reasonable option. If her symptoms progress or unbearable then we can try steroid injection evaluation after an MRI 11/12/2024 Other spondylosis with radiculopathy, thoracic region (ICD-10 - M47.24) Her right sided rib pain is most likely a T8 radiculopathy. Can check MRI of this as well 11/12/2024 Spinal stenosis, lumbar region with neurogenic [...] but can also start with injection evaluation 11/24/2024 Spinal stenosis, lumbar region with neurogenic claudication (ICD-10 - M48.062) 03/17/2024 Paroxysmal atrial fibrillation (ICD-10 - I48.0) Remains in sinus rhythm on exam. Continue anticoagulation 03/17/2024 Chronic obstructive pulmonary disease, unspecified (ICD-10 - J44.9) She is now noticing some shortness of breath with the heat and with some activity such as stairs and hills. She had seen cardiology and has an echo pending. It is possible that this is cardiac in etiology but given some wheezing on exam this may also be COPD that is not as well-controlled. She had felt better with the Trelegy and there may be some reactive airway disease component as well. At the present time can try to change rescue inhaler and if she has not improved then there may be a asthma reactivity component that needs chronic steroid therapy as well. 03/17/2024 Other thrombophilia (ICD-10 - D68.69) Her [id number] score is at least a 3. Based as she is at increased risk for thromboembolic events and remains on anticoagulation. 03/17/2024 Atherosclerotic heart disease of [place] coronary artery without angina pectoris (ICD-10 - I25.10) Stable at present. She does have shortness of breath but that may be more COPD related than CAD related. She had a catheterization several years ago that showed nonobstructive coronary disease. Continue control of comorbidities of hyperlipidemia and hypertension 03/17/2024 Nonrheumatic mitral valve disorder, unspecified (ICD-10 - I34.9) Stable without progressive symptoms 03/17/2024 Autoimmune thyroiditis (ICD-10 - E06.3) Stable on prior labs. Recheck status 03/17/2024 Impaired fasting glucose (ICD-10 - R73.01) Stable on prior labs as reviewed. Recheck status to verify stability. Continue exercise to keep this in control 03/17/2024 Mixed hyperlipidemia (ICD-10 - E78.2) Stable with LDL approximately 70. Continue control this comorbidity for nonobstructive CAD. 03/17/2024 Other spondylosis with radiculopathy, cervical region (ICD-10 - M47.22) Stable without any recurrent or progressive symptoms 03/17/2024 Spinal muscular atrophy, unspecified (ICD-10 - G12.9) She has lost muscle bulk in the right hand as a complication of her cervical radiculopathy and surgeries. Currently stable. 03/17/2024 Vitamin B12 deficiency anemia due to intrinsic factor deficiency (ICD-10 - D51.0) Stable with prior B12 replacement. Recommend continuing B12 but may be at a low dose such as once a week as opposed to on a daily basis. 03/17/2024 Vitamin D deficiency, unspecified (ICD-10 - E55.9) Stable on prior labs as reviewed with level of at least 30. 12/24/2023 Other This note was created with voice dictation recognition software and may contain errors of grammar and syntax. Also labs were reviewed with patient. 03/17/2024 Other This note was created with voice dictation recognition software and may contain errors of grammar and syntax. Also labs were reviewed with patient. 04/15/2024 Other This note was created with voice dictation recognition software and may contain errors of grammar and syntax. Also labs were reviewed with patient. 04/30/2024 Other This note was created with voice dictation recognition software and may contain errors of grammar and syntax. Also labs were reviewed with patient. 07/09/2024 Other This note was created with voice dictation recognition software and may contain errors of grammar and syntax. Also labs were reviewed with patient. 07/11/2024 Other This note was created with voice dictation recognition software and may contain errors of grammar and syntax. 10/14/2024 Other This note was created with voice dictation recognition software and may contain errors of grammar and syntax. Also labs were reviewed with patient. 11/12/2024 Other This note was created with voice dictation recognition software and may contain errors of grammar and syntax. Also labs were reviewed with patient. Plan Of Treatment Pending Test Test Name Order Date 25OH VITAMIN D 09/14/2022 25OH VITAMIN D 04/04/2022 25OH VITAMIN D 09/08/2021 COMPLETE CBC WITH DIFF 09/08/2021 COMPLETE CBC WITH DIFF 09/14/2022 COMPLETE URINALYSIS 09/14/2022 COMPLETE URINALYSIS 09/08/2021 COMPREHENSIVE METABOLIC PANEL 09/08/2021 COMPREHENSIVE METABOLIC PANEL 09/14/2022 COMPREHENSIVE METABOLIC PANEL 04/04/2022 FREE T4 04/04/2022 FREE T4 09/14/2022 FREE T4 09/08/2021 HEMOGLOBIN A1C 09/08/2021 HEMOGLOBIN A1C 09/14/2022 LIPID PANEL W REFLEX TO DLDL 09/14/2022 LIPID PANEL W REFLEX TO DLDL 04/04/2022 LIPID PANEL W REFLEX TO DLDL 09/08/2021 METHYLMALONIC ACID, 04/04/2022 METHYLMALONIC ACID, 09/14/2022 TSH 09/14/2022 TSH 09/08/2021 TSH 04/04/2022 VITAMIN B12 04/04/2022 VITAMIN B12 09/14/2022 ANTI-HEPATITIS C W/RFLX HCV QNT 09/14/19 23 TISSUE EXAM 12/11/2024 Next Appt Details Provider Name:Mil Colbert , 01/15/2025 01:00:00 PM, [address] [place] [address], [place] [address], [place], [place], [phone], Insurance Providers Payer Name Payer Address Payer Phone Subscriber Number Group Number Insured Name Patient Relationship to Insured Coverage Start Date Coverage End Date MEDICARE [address] [place] [phone] [id number] Altagracia Silva Self - patient is the insured BCBS MEDEX [address] [place] [address] [id number] Altagracia Silva Self - patient is the insured Medications Administered Medication Instructions Date of Administration Dosage Notes Vitamin B12 10/27/2015 1 mL deonte [employer] [place] Vitamin B12 11/17/2015 1 mL MFD BY DEONTE [employer] Vitamin B12 12/16/2015 1 mL Vitamin B12 09/11/2016 1 mL Vitamin B12 06/13/2018 1 mL Vitamin B12 12/23/2018 1 mL Vitamin B12 01/29/2019 1 mL Vitamin B12 04/28/2019 1 mL Vitamin B12 07/22/2019 1 mL Vitamin B12 06/27/2019 1 mL Vitamin B12 05/28/2019 1 mL Vitamin B12 03/28/2019 1 mL Vitamin B12 02/28/2019 1 mL Vitamin B12 07/15/2018 1 mL Vitamin B12 05/14/2018 1 mL Vitamin B12 04/15/2018 1 mL Vitamin B12 03/04/2018 1 mL Vitamin B12 02/05/2018 1 mL Vitamin B12 12/17/2017 1 mL Vitamin B12 09/21/2017 1 mL Vitamin B12 08/22/2017 1 mL Vitamin B12 07/23/2017 Vitamin B12 06/22/2017 1 mL Vitamin B12 05/24/2017 1 mL Vitamin B12 04/23/2017 1 mL Vitamin B12 03/23/2017 1 mg Vitamin B12 02/22/2017 Vitamin B12 01/22/2017 1 mL Vitamin B12 12/20/2016 1 mL Vitamin B12 10/16/2016 1 mL Vitamin B12 08/15/2016 1 mL Vitamin B12 07/25/2016 Vitamin B12 06/26/2016 Vitamin B12 05/23/2016 1 mL Vitamin B12 04/24/2016 1 mL Vitamin B12 03/22/2016 1 mL Vitamin B12 02/21/2016 1 mL Vitamin B12 01/18/2016 1 mL Medical (General) History Medical History History ICD Code Radiculitis, thoracic or lumbar Cervical osteoarthritis Mitral valve prolapse Chronic obstructive pulmonary disease, u nspecified J44.9 Impaired fasting glucose R73.01 Vitamin B12 deficiency anemia due to int rinsic factor deficiency D51.0 Age-related osteoporosis without current pathological fracture M81.0 Nonrheumatic mitral valve disorder, unsp ecified I34.9 Autoimmune thyroiditis E06.3 Unilateral primary osteoarthritis, left knee M17.12 Other spondylosis with radiculopathy, ce rvical region M47.22 Presence of left artificial knee joint Z 96.652 Sensorineural hearing loss, bilateral H9 0.3 escrow representative (current) use of anticoagulant s Z79.01 Unilateral primary osteoarthritis, left hip (resolved 04/16/2023) Surgical History Surgery Date(Month/Year) cataract-lens implants, LT cataract-lens implants, RT Hysterectomy 2009 Cervical fusion left knee arthroscopy 04/16/2017 Knee Replacement, LEFT 11/2017 ganglion cyst left wrist Lower back surgery 02/06/2022 Excision of Benign Mass, LT Hand 08/2022 Hip Replacement, LEFT 01/2023 Hip Replacement, RIGHT 06/2023 Hospitalization History Reason Date(Month/Year) Fall, Nasal Fracture, PAF 12/2018
--- OUTSIDE RECORDS SUMMARY | 2024-12-16 15:33 | XMS_ITS ---
Author Organization [facility] Address [address] [phone] Care Team Providers Care Shift Leader Name Role Phone Mil Gill Primary Care [...] MD Reviewed and Electronically Signed by: GRACE MOZNON MD - Original Report EXAM: MR THORACIC [...] region with neurogenic claudication (M48.062) Referral Organization [facility] Referring Provider First Name Mil Referring [...] Risk Notes Problem Thoracic spondylosis without myelopathy ([id number]) Other spondylosis with radiculopathy, thoracic region (M47.24) Active confirmed Vital Signs Height 5 ft 4.25 in in 11/12/2024 Weight 179 lbs 11/12/2024 BMI 30.48 kg/m2 11/12/2024 Temperature 97.2 degrees Fahrenheit 11/13/19 25 Heart Rate 72 /min 11/12/2024 Oximetry 94 % 11/12/2024 Encounters Encounter Location Date Provider Diagnosis Mil Gill MD [address] [phone] 11/12/2024 Mil Gill Spinal stenosis, lumbar region [...] zeke Mathews 11/12/2024 11/12/2024, faxed, [facility] Referral Next Appt Details Provider Name:Mil Gill , 01/15/2025 01:00:00 PM, [address] [place] [address], SUITE [facility], [place], [place], [phone], Progress Notes * Altagracia SILVA ADOB:[birth year] (74 yo F)Acc No.[id number]:11/12/2024 Progress Notes Patient:?Altagracia SILVA A Provider:?Mil Gill MD :1950???Age:74 Y???Sex:Female D ate:11/12/2024 Address:[address] [place] [address] , [facility], [place], [id number] Structured Data:Care team [facility] Stratification : Medium Low Risk Subjective: [...] To:Natalie Mathews??Pain Medicine ?Reason:faxed ? Referral To:[facility] Referral??Neurosurgery ?Reason: 2.?Other spondylosis with radiculopathy, thoracic [...] * Images: Billing Information: * Visit Code:? 31632 Office Visit, Est Pt., Level 3. * Procedure Codes:? * Sign off status: Completed true * Provider:?Mil Gill MD Date:?11/12 Generated for Christina sidhu/Zaid/Braeden on:?12/16/2024 03:33 PM EDT History and Physical Notes * Examination [...] Mil Gill Thenu faxed 11/12/2024 [facility] Referral, [facility] faxed
--- OUTSIDE RECORDS SUMMARY | 2024-12-16 15:34 | XMS_ITS | Encounter Summary ---
Author Organization [facility] Address [address] [place] [address] Care Team Providers Care J2Ee Programmer Name Role Phone Mil Gill MD Primary Care Provider Encounter Details Date Type Department Care Team (Late st Contact Info) Description 12/11/2024 12:11 PM EDT Anesthesia Event [facility] [address] [place] [address] Benjamin Bishop DO [address] [place] [address] Vahid Beverly CRNA [address] [place] [address] Anesthesia Record Procedure Summary Procedure Name Responsible Anesthesiologist Anesthesia Start Time Anesthesia Stop Time COLONOSCOPY Benjamin Bishop DO 12/11/24 1211 12/11/24 1236 Events Date Time Event Comment 12/11/2024 1202 1211 An Start 1211 An Start Data The patient wa s reevaluated immediately before moderate or deep sedation use and before anesthesia induction. 1211 In Room 1211 Anesthesia Ready 1233 an stop data 1233 Out of Room 1236 Handoff to RN I completed my handoff to the receiving nurse during which we: 1. Identified the patient 2. Identified the responsible provider 3. Reviewed the pertinent medical history 4. Discussed the surgical course 5. Reviewed intra-op anesthesia management and issues during anesthesia 6. Set expectations for post-procedure period 7. Allowed opportunity for questions and acknowledgement of understanding. 1236 An Stop Meds Name Total propofol (DIPRIVAN) injection 10 mg/mL 2 60 mg lactated Ringer's infusion 500 mL * Agents Name O2 * Blood No blood administrations on file. Lines, Drains, and Airways Type Details Placement Removal Peripheral IV Placement Date: 12/02 ; Placement Time: 1152; Catheter Size: 20 G; Orientation: Anterior, Proximal, Right; Location: Antecubital; Site Prep: Chlorhexidine; Local Anesth: None; Insertion Attempts: 1; Removal Date: 12/11/24; Removal Time: 1257 12/11/24 1152 by Lauryn Coleman RN 12/11/24 1257 by Cleopatra Shaikh RN documented in this encounter Social History Tobacco Use Types Packs/Day Years [...] as of this encounter Progress Notes * Vahid Beverly CRNA - 12/11/2024 12:33 PM EDT Patient: Altagracia Silva Procedure Summary Date: 12/11/24 Room / Location: [facility] Anesthesia Start: 1211 Anesthesia Stop: Procedure: COLONOSCOPY Diagnosis: Personal history of hyperplastic colon polyps Scheduled Providers: Shy Brown MD; Benjamin Bishop DO; Vahid Beverly CRNA Responsible Provider: Benjamin Bishop DO Anesthesia Type: MAC ASA Status: 3 Anesthesia Plan: MAC Last Vitals: Vitals Value Taken Time BP 144/72 12/11/24 1233 Temp 36 12/11/24 1233 Pulse 61 12/11/24 1233 Resp 15 12/11/24 1233 SpO2 96 12/11/24 1233 No data recorded Anesthesia Post Evaluation Patient location during evaluation: PACU Patient participation: complete - patient participated Level of consciousness: awake and alert Pain score: 0 Pain management: adequate Airway patency: patent Anesthetic complications: no Cardiovascular status: acceptable and hemodynamically stable Respiratory status: acceptable and face mask Hydration status: acceptable Nausea: No Vomiting: No No notable events documented. * Benjamin Bishop DO - 12/11/2024 11:55 AM EDT Relevant Problems Cardio (+) Atrial fibrillation (CMS/HCC V24, CMS/HCC V28) (+) HTN (hypertension) (+) Mitral valve prolapse (+) Right bundle branch block (RBBB) Pulmonary (+) Emphysema lung (CMS/HCC V24, CMS/HCC V28) Endo (+) Hypothyroid Other (+) Adenomatous polyp of colon Clinical information reviewed: Tobacco Allergies Meds Med Hx Surg Hx OB Status Fam Hx Soc Hx Anesthesia Plan ASA 3 Anesthesia Plan: MAC Anesthesia Risks Discussed allergic reaction, serious complications, nausea, dental injury, pain, sore throat and corneal abrasion Plan Factors Patient is not a current smoker Induction method: N/A Anesthetic plan and risks discussed with patient. Anesthesia Plan discussed with attending. Anesthesia Evaluation Patient summary reviewed and Nursing notes reviewed No history of anesthetic complications Airway Mallampati: II Thyromental distance: < 3 finger breadths Neck ROM: limited Dental Pulmonary - normal exam breath sounds clear to auscultation (-) sleep apnea ROS comment: Emphysema Former smoker quit 40 years ago Cardiovascular - normal exam Exercise tolerance: good (+) hypertension well controlled, valvular problems/murmurs MVP, dysrhythmias (atrial fibrillation,RBBB) (-) past NV, CAD, angina, [place] ECG reviewed Rhythm: regular Rate: normal ROS comment: TTE 2018 1. Normal LV wall thickness. Normal internal chamber dimensions. Grossly normal left ventricular systolic function. No obvious segmental wall motion abnormalities are noted. Ejection fraction in the range of 60%. Normal parameters of diastolic function. 2. Normal right ventricular size and function. 3. Normal left atrium and normal right atrium 4. Normal aortic root at 2.9 cm normal ascending aorta at 3 cm. 5. Normal appearing aortic valve. No aortic stenosis. No aortic insufficiency. 6. Mild mitral annular calcification mild mitral leaflet thickening. No mitral stenosis. Trace insufficiency. 7. Normal tricuspid valve with a trace of TR. Cannot assess PA pressures. Normal inferior vena cava. 8. Trace pulmonic valve insufficiency. 9. Normal pericardium Neuro/Psych (-) seizures, TIA, CVA GI/Hepatic/Renal (+) GERD (-) liver disease, renal disease Endo/Other (+) hypothyroidism (-) diabetes mellitus Comments: Osteoporosis Depression Abdominal (-) obese PONV RISK SCORE: 2 Vitals: 12/11/24 1151 BP: (!) 145/89 Pulse: 62 Resp: 16 Temp: 36.3 ??C (97.4 ??F) TempSrc: Temporal SpO2: 98% Weight: 80.7 kg (178 lb) Height: 1.651 m (65 ) SpO2 Readings from Last 1 Encounters: 12/11/24 98% No results found for: WBC , RBC , HGB , HCT , PLT , MCV Allergies Allergen Reactions Sulfa (Sulfonamide Antibiotics) STOP BANG: No data recorded NPO Status: Time of Last Liquid: 07 Time of Last Solid: 1999 documented in this encounter Plan of Treatment Not on file documented as of this encounter Visit Diagnoses Not on filedocumented in this encounter Administered Medications Inactive Administered Medications - up to 3 most recent administrations Medication Order MAR Action Action Date Dose Rate Site lactated Ringer's infusion intravenous, Continuous PRN, Starting on Jacquelyn 12/11/24 at 1211, Anesthesia Intraprocedure New Bag 12/11/2024 12:11 PM EDT propofoL (DIPRIVAN) injection intravenous, As needed, Starting on Jacquelyn 12/11/24 at 1213, Anesthesia Intraprocedure Given 12/11/2024 12:29 PM EDT 20 mg Given 12/11/2024 12:27 PM EDT 20 mg Given 12/11/2024 12:25 PM EDT 20 mg documented in this encounter Care Teams J2Ee Programmer Relationship Specialty Start Date End Date Mil Gill MD [address] [place] [address] PCP - General Internal Medicine 08/19/24 documented as of this encounter
--- OUTSIDE RECORDS SUMMARY | 2024-12-16 15:34 | XMS_ITS | Clinical Summary ---
Author Organization [facility] Address [address] [place] [phone] Phone Care Team Providers Care Manager Intranet Name Role Phone Mil Gill MD Primary Care Provider [phone] Allergies Active Allergy Reactions Criticality Noted Date [...] lanteroL (ANORO ELLIPTA) 62.5-25 mcg/actuation inhaler Active id-xau-QR-vit Z-vxsxhv-ryxemb t (PreserVision AREDS 2 Plus MV) 200 [...] 2,000 Int'l Units by mouth. 9 Active polyethylene glycol (Golytely) 236-22.74-6.74 -5.86 gram solution Take 4L by mouth once for one dose. May substitue any PEG. Starting at 6PM the night before your procedure drink 1 8oz glasses at your own pace until you complete half of the gallon. Finish 2nd half of the gallon 5 hours before your procedure. 4000 mL 5 Active bisacodyL (DULCOLAX) 5 mg EC tablet Take 2 tablets by mouth right before beginning bowel prep. See instructions provided by the office 2 tablet 5 Active fluticasone HFA (FLOVENT HFA) 110 mcg/actuation inhaler Inhale 2 puffs by mouth 2 (two) times a day. 5 Active gabapentin (NEURONTIN) 300 mg capsule Take 2 capsules (600 mg total) by mouth at bedtime. 5 Active Active Problems Problem Noted Date Diagnosed Date Atrial fibrillation ([facility] V24, [facility] V28) 0 10/03/2024 Assessment & Plan (10/03/2024 11:08 AM EST): Pt on Eliquis Advised to hold 2 days prior to colonoscopy Risk of clot/cva off of med reviewed Hypothyroid 10/03/2024 Hyperlipidemia 10/03/2024 Emphysema lung ([facility] V24, [facility] V28) 2024 Adenomatous polyp of colon 10/03/2024 Assessment & Plan (10/03/2024 11:08 AM EST): Due for surveillance colonoscopy Depression 10/03/2024 HTN (hypertension) 10/03/2024 Right bundle branch block (RBBB) 10/03/2024 Mitral valve prolapse 10/03/2024 Osteoporosis 10/03/2024 Encounters Date Type Department Care Team Description 12/15/2024 Telephone Gastroenterology - [address] [place] [phone] Wilma Shin MA 12/11/2024 12:11 PM EDT Anesthesia Event [facility] [address] [place] [phone] Benjamin Bishop DO Georgette, Nathaniel, CRNA 12/11/2024 10:54 AM EDT - 12/11/2024 11:59 PM EDT Hospital Encounter [facility] [address] [place] [phone] Shy Brown MD Walsh, Michael, DO Georgette, Nathaniel, CRNA Personal history of hyperplastic colon polyps Discharge Disposition: Home or Self Care 11/05/2024 Telephone Gastroenterology - [place] [address] [place] [phone] Cielo Toney LPN Anticoagulation (Colonoscopy on 12/11/[address] Brown) 10/03/2024 10:40 AM EST Office Visit Gastroenterology - [address] [facility] [address] [place] [phone] Alba Figueroa PA Chronic idiopathic constipation (Primary Dx); Functional diarrhea; Adenomatous polyp of colon, unspecified part of colon; Longstanding persistent atrial fibrillation (CMS/HCC V24, CMS/HCC V28) 10/03/2024 Telephone Gastroenterology - [address] [facility] [address] [place] [phone] Shy Brown MD from Last 3 Months Surgical History Surgery Date Site/Laterality Comments CERVICAL FUSION TOTAL HIP ARTHROPLASTY 09/03/2022 - 09/02/2023 Bilateral TOTAL KNEE ARTHROPLASTY 09/03/2017 - 09/02/2018 Left HAND SURGERY CATARACT EXTRACTION Bilateral HYSTERECTOMY COLONOSCOPY 08/03/2021 - 09/02/2021 adenoma x 5 (3 yr) COLONOSCOPY 12/03/2015 - 01/01/2016 int rhoids (5yr) COLONOSCOPY 09/03/2010 - 09/02/2011 int rhoids (5yr) TONSILLECTOMY NECK SURGERY Cspine JOINT REPLACEMENT Medical History Medical History Date Comments Emphysema lung (CMS/HCC V24, [facility] V28) Depression Hypertension Hyperlipidemia Anxiety GERD (gastroesophageal reflux disease) Social History Tobacco Use Types Packs/Day Years [...] Mass Index 29.62 12/11/2024 11:51 AM EDT Plan of Treatment Health Maintenance Due Date Last Done Comments Cholesterol Screening (Lipid Panel) 08/02/2022 Depression Screening 08/02/2022 Hepatitis C Screening 08/02/2022 Medicare Annual Wellness Visit 08/02/2022 Osteoporosis Screening (Bone Density Screening) 08/02/2022 Social Influencers of Health Screening 08/02/2022 Hypertension/CHF/CAD Annual BMP Blood Test 08/19/2024 COVID-19 Vaccine ( season) 2024 06/10/2024, 07/03/2023, 06/05/2022, Additional history exists Falls Risk Assessment 12/11/2025 12/11/2024 DTaP,Tdap,and Td Vaccines (2 - Td or Tdap) 06/03/2034 06/03/2024 Zoster Vaccines Completed 03/03/2019, 12/27/2018 Hepatitis A Vaccines Aged Out 09/02/2019 No long er eligible based on patient's age to complete this topic RSV Immunization Adult Patients Completed 07/17/2023 Pneumococcal Vaccine: 50+ Years Completed 09/18/2023 Influenza Vaccine Completed 06/03/2024, , 06/02/2022, Additional history exists Colorectal Cancer Screening: Colonoscopy Discontinued 12/11/2024, 10/06/2024 HIB Vaccines Aged Out No longer [...] age to complete this topic Meningococcal B Vaccine Aged Out No l onger eligible based on patient's age to complete this topic RSV Immunization Patients Under 20 months Aged Out No longer eligible based on patient's age to complete this topic Varicella Vaccines Aged Out No longer eligible based on patient's age to complete this topic Medical Devices Implanted Type Area Laundry Presser Device Identifier Shelf Expiration Date Model / Serial / Lot Joints Hip Joints Hip Bilateral : Hip Joints Knee Joints Knee Left: Knee Procedures Procedure Name Priority Date/Time Associated Diagnosis Comments COLONOSCOPY Routine 12/11/2024 12:33 PM EDT Personal history of hyperplastic colon polyps TISSUE EXAM Routine 12/11/2024 12:22 PM EDT Personal history of hyperplastic colon polyps COLONOSCOPY Routine 10/06/2024 11:26 AM EST from Last 3 Months Results * COLONOSCOPY Anesthesia - MAC; SP ENDOSCOPY (12/11/2024 12:33 PM EDT) Only the most recent of2 resultswithin the time period is included. Anatomical Region Laterality Modality Endoscopy 12/11/2024 12:0 [...] pathology results. Narrative 12/11/2024 12:35 PM EDT [facility] GI Patient Name: Altagracia Silva Procedure Date: 12/11/2024 12:03 PM Date of : 1950 Age: 74 Gender: Female Note Status: Finalized Attending MD: Shy Brown MD, Procedure Date No Time: 12/11/2024 Procedure: ? Colonoscopy Indications: ? High risk colon cancer surveillance: Personal history ? of multiple (3 or more) adenomas Providers: ? Shy Brown MD Referring MD: ?Mil Gill MD Medicines: [...] Procedure Code(s): ? --- Professional --- ? 02537, Colonoscopy, flexible; with removal of ? tumor(s), polyp(s), or other lesion(s) by snare ? technique Diagnosis Code(s): ? --- Professional --- ? Z86.010, Personal history of colonic polyps ? D12.2, Benign neoplasm of ascending colon ? D12.4, Benign neoplasm of descending colon ? D12.5, Benign neoplasm of sigmoid colon CPT copyright 2020 [employer]. All rights reserved. The codes documented in this report are preliminary and upon maint mechanic review may be revised to meet current compliance requirements. Shy Brown MD 12/11/2024 12:35:26 PM This report has been signed electronically.Shy Brown MD Number of Addenda: 0 Note Initiated On: 12/11/2024 12:03 PM Scope In: Scope Out: ? Endoscopy Department at [facility] - [address] [place] [address], ? [place] [phone] Procedure Note Shy Brown MD - 12/11/2024 [facility] GI Patient Name: Altagracia Silva Procedure Date: 12/11/2024 12:03 PM Date of : 1950 Age: 74 Gender: Female Note Status: Finalized Attending MD: Shy Brown MD, Procedure Date No Time: 12/11/2024 Procedure: Colonoscopy Indications: High risk colon cancer surveillance: Personalhistory of multiple (3 or more) adenomas Providers: Shy Brown MD Referring MD: Mil Gill MD Medicines: [...] not prolapse). Procedure Code(s): --- Professional --- 40292, Colonoscopy, flexible; with removal of tumor(s), polyp(s), or other lesion(s) by snare technique Diagnosis Code(s): --- Professional --- Z86.010, Personal history of colonic polyps D12.2, Benign neoplasm of ascending colon D12.4, Benign neoplasm of descending colon D12.5, Benign neoplasm of sigmoid colon CPT copyright 2020 [employer]. All rights reserved. The codes documented in this report are preliminary and upon maint mechanic reviewmay be revised to meet current compliance requirements. Shy Brown MD 12/11/2024 12:35:26 PM This report has been signed electronically.Shy Brown MD Number of Addenda: 0 Note Initiated On: 12/11/2024 12:03 PM Scope In: Scope Out: Endoscopy Department at [facility] - [address] [place] [phone] IMPRESSION: - Two diminutive polyps in the ascending colon, removed with a cold snare. Resected andretrieved. - Two diminutive polyps in the descending colon, removed with a cold snare. Resected andretrieved. - One diminutive polyp in the sigmoid colon,removed with a cold snare. Resected and retrieved. - Internal hemorrhoids. Recommendation: - Await pathology results. - Repeat colonoscopy for surveillance based on pathology results. Shy Brown MD GI~PROCEDURE ORDERABLES Final Result * Tissue exam (12/11/2024 12:22 PM EDT) Final Diagnosis A. Ascending Colon, polyps x2: Tubular adenomas, fragmented. B. Descending Colon, polyps x2: Two tubular adenomas. C. Sigmoid Colon, polyp x1: Tubular adenoma. 12/12/2024 2:47 PM EDT [facility] Gross Description A. Large Intestine, Right/Ascendi [...] one slide. BERENICE 12/12/2024 2:47 PM EDT [facility] Disclaimer Unless otherwise specified, all tissue is 10% NB formalin fixed and paraffin embedded. 12/12/2024 2:47 PM EDT [facility] Tissue Ascending colon structure / Unknown 12/11/2024 12:22 PM EDT 12/11/2024 2:39 PM EDT Tissue specimen (specimen) Descending colon structure / Unknown 12/11/2024 12:25 PM EDT 12/11/2024 2:39 PM EDT Tissue specimen (specimen) Sigmoid colon structure / Unknown 12/11/2024 12:32 PM EDT 12/11/2024 2:39 PM EDT us Shy Brown MD LAB PATHOLOGY ORDERABLES Final Result [facility] [address] [place] [address], [place] [phone] from Last 3 Months Insurance MEDICARE [facility] Care Teams Manager Intranet Relationship Specialty Start Date End Date Mil Gill MD [address] [place] [phone] PCP - General Internal Medicine 08/19/24
== END 2024-12-16 13:27 | disposition home or self-care (01) ==
LOC: HO.HPS 12:46
PROVIDERS: PCP Internal Medicine; Visit Provider Hospitalist
DX: J43.2 Centrilobular emphysema (principal)

== ENCOUNTER → 2024-12-16 12:46 | Outpatient (BNVA) | payer MEDICARE, SELFPAY | PROVIDERS: PCP Internal Medicine; Visit Provider Hospitalist | DX: J43.2 Centrilobular emphysema (principal) | CPT/HCPCS: 99211 ==

== ENCOUNTER 2025-03-02 09:30 | Outpatient (AMB) | payer MEDICARE, SELFPAY ==
--- NOTE | 2025-03-02 09:32 | MHC.OFFVIS ---
Vital Signs 03/02/25 09:34 Height 5 ft 4.25 in Weight 188 lb 7.924 oz BMI 32.1 BP 128/64 Blood Pressure Location Rt brachial Position Sitting Pulse 65 Pulse Source Pulse Oximeter Pulse Oximetry (%) 96 Oxygen Delivery Method Room Air Intake Visit Reasons: Increased dyspnea and cough Allergies Sulfa (Sulfonamide Antibiotics) Adverse Reaction (Intermediate, Verified 03/02/25 09:37) Gastrointestinal Upset HPI HPI Increased dyspnea and cough: Details: Altagracia is a pleasant 74 year old female, former 20 pocket smoker, quit 30 years ago with underlying emphysema. At baseline is moderately controlled on Anoro, fluticasone and combivent MDI. She is under the care of Dr. Kramer and presents today for an acute visit. She reports 4 day history of worsening dyspnea and wheezing with associated productive cough with yellow sputum. She denies fevers, chills or sick contacts. [facility] Medical History (Updated 09/17/24 @ 21:09 by Claus Kramer MD) Pulmonary nodule Hypoxia ILD (interstitial lung disease) COPD (chronic obstructive pulmonary disease) Social History Patient Tobacco Use Status: Former Tobacco user Review of Systems Const Denies chills, Denies excessive sweating, Denies fever(s), Denies headache(s) and Denies night sweats Eyes Denies dry eyes, Denies irritation and Denies itchy eyes ENT Reports Normal hearing present, Denies headache(s), Denies nasal congestion and Denies sore throat Card Denies chest pain, Denies chest pain at rest, Denies chest pain with activity, Denies claudication, Denies leg edema, Denies orthopnea and Denies paroxysmal nocturnal dyspnea Resp Denies pain on inspiration, Denies pain with cough and Denies stridor Musc Denies myalgias Neuro Reports Normal hearing present and Denies headache(s) Endo Denies excessive sweating Boyd/Lymph Denies lymphadenopathy Aller/Immun Denies itchy eyes and Denies seasonal rhinorrhea Physical Exam Vital Signs: Last Vital Signs Pulse 65 03/02/25 09:34 BP 128/64 03/02/25 09:34 Pulse Ox 96 03/02/25 09:34 Oxygen Delivery Method Room Air 03/02/25 09:34 BMI result Body Mass Index 32.1 Const General: cooperative, healthy appearing, comfortable, no acute distress, well developed and alert Nutritional Appearance: obese Orientation/consciousness: patient oriented x3 Limitations: no limitations HEENT Head: Yes normal to inspection, Yes normocephalic and Yes atraumatic Ears: hearing grossly normal bilaterally and external ears normal Eyes General: appearance normal, both eyes and all related structures Eyelids: Yes eyelids normal Sclerae: sclerae normal EOM: EOMs intact bilaterally Neck Neck: Yes normal visual inspection and Yes no lymphadenopathy Lymphatic: no lymphadenopathy noted Chest Chest palpation & inspection: normal inspection of the chest Resp Effort & Inspection: normal respiratory effort, able to speak in complete sentences, no audible wheezes, no cough, no stridor, not tachypneic, no tripod positioning and no use of accessory muscles Auscultation: diminished lung sounds Cardio Jugular venous distension: no JVD Rate: regular rate Rhythm: regular rhythm Skin Other: warm, dry General skin exam: no rashes or lesions noted Neuro General: patient oriented x3 Cranial nerves: Yes Normal hearing present Cognition (Neuro): normal cognition Gait exam (Neuro): Normal gait present Extrem General: Yes normal to inspection, Yes capillary refill normal, Yes no clubbing, cyanosis or edema and Yes no pedal edema Psych Appearance: grossly normal and well kempt Speech and movement: Normal speech and movement present and Clear speech present Affect: normal affect Attitude: cooperative Thought process: Normal thought process present Thought content: Normal thought content present Insight: Good insight present (Psych) Judgement: Good judgement present (Psych) Assessment & Plan Assessment & Plan (1) COPD (chronic obstructive pulmonary disease): Code(s): J44.9 - Chronic obstructive pulmonary disease, unspecified Category: Medical Qualifiers: COPD type: emphysema Emphysema type: centrilobular Qualified Code(s): J43.2 - Centrilobular emphysema Plan Will treat bronchitic symptoms with doxycycline, potential adverse/side effects reviewed, including photosensitivity. She is aware to call if symptoms do not improve, will obtain chest x-ray at that time. All questions were answered and patient in agreement plan. Will follow up regularly scheduled appointment with Dr. Kramer or sooner if needed. Medications: New doxycycline hyclate 100 mg PO BID 14 caps 0RF Coding Level of Care Code Est Pt Level 4 (71430) Diagnoses Centrilobular emphysema J43.2 COPD type: emphysema Emphysema type: centrilobular
[2025-03-02 09:34] VITALS: BP 128/64; PULSE 65; O2SAT 96; BMI 32.1
--- OUTSIDE RECORDS SUMMARY | 2025-03-02 09:51 | XMS_ITS | Data Portability ---
Author Organization [facility], [facility] Address [address],[facility] [address] [place] [address] Care Team Providers Care Senior Communications Specialist Name Role Phone MORENO COLBERT Primary Care Provider Assessment Encounter Date Assessment Date Assessment LastModified by Organization Details LastModified Time 12/08/2024 12/08/2024 Altagracia Silva is a 74 year old woman with low back pain radiating into the left lower extremity. She has mid back pain radiating into her right rib region. Her worse pain is her mid back pain. On exam ,she has pain on flexion. MRI Lumbar spine shows Multilevel degenerative changes of the lumbar spine as described. Findings are most pronounced at L4-L5 with moderate to severe spinal canal, severe left and mild to moderate right foraminal stenosis . MRI Thoracic spine shows Multilevel degenerative changes of the thoracic spine . Findings are most pronounced at T1-T2 with mild spinal canal, moderate severe bilateral foraminal stenosis and T9-T10 with moderate to severe right and mild left foraminal stenosis. Multilevel degenerative edema is noted along the end plates, most pronounced at T9-T10. Trial of thoracic epidural steroid injections under fluoroscopic guidance was recommended. The risks and benefits of the procedure were discussed in detail. She wishes to proceed. An appointment has been booked for the same. She needs a lyft driver on the day of the procedure. She is on eliquis and will need to stop it three days prior to the procedure. I will contact her inspector poising , Dr. Stallworth. [email or web address] Not available 12/08/2024 17:14:23 12/23/2024 12/23/2024 Altagracia Silva is a 74 year old woman with mid back pain radiating into her right rib region. Her worse pain is her mid back pain. On exam ,she has pain on flexion. MRI Thoracic spine shows Multilevel degenerative changes of the thoracic spine . Findings are most pronounced at T1-T2 with mild spinal canal, moderate severe bilateral foraminal stenosis and T9-T10 with moderate to severe right and mild left foraminal stenosis. Multilevel degenerative edema is noted along the end plates, most pronounced at T9-T10. She is here for a trial of thoracic epidural steroid injection under fluoroscopic guidance . The risks and benefits of the procedure were discussed in detail. She wishes to proceed. She is on eliquis and will restart tomorrow She will follow up in four weeks. [email or web address] Not available 12/23/2024 15:29:06 01/29/2025 01/29/2025 Altagracia Silva is a 74 year old woman with low back pain radiating into the left lower extremity. On exam ,she has pain on flexion . MRI Lumbar spine shows Multilevel degenerative changes of the lumbar spine . Findings are most pronounced at L4-L5 with moderate to severe spinal canal, severe left and mild to moderate right foraminal stenosis. Trial of Lumbar epidural steroid injections under fluoroscopic guidance was recommended. The risks and benefits of the procedure were discussed in detail. She wishes to proceed. An appointment has been booked for the same. She needs a lyft driver on the day of the procedure. She is on eliquis and will need to stop it three days prior to the procedure. She is ok to stop per her inspector poising, Dr. Basim palomares Not available 01/29/2025 11:01:50 Plan of Treatment Reminders Order Date Submit Date Provider Last Modified By Organization Details Last Modified Time Details Appointments PROCEDURE 2024 09:30A M Natalie lo MD Not available Not available Not available Lab None recorded. Referral None recorded. Procedures None recorded. Surgeries None recorded. Imaging None recorded. Medication Orders None recorded. Patient TargetsNo targets recorded. Patient Instructions Encounter Date Encounter Id Patient Instructions Last Modified By Organization Details Last Modified Time 12/08/2024 [id number] She was advised against bed rest lasting longer than four days and to continue activities as tolerated. [email or web address] Not available 12/08/2024 17:12:01 12/23/2024 [id number] She was advised against bed rest lasting longer than four days and to continue activities as tolerated. [email or web address] Not available 12/23/2024 15:25:35 Reason for Referral None Reported. Problems Name Problem SNOMED Code Status Onset Date Resolution Date Notes Provider Name and Address Organization Details Recorded Time Lumbar radiculopathy 451285012 Active 2024 Natalie lo MD [address] , [address], [facility] [place], [address], [place] [facility] 13:23:40 Thoracic radiculopathy 24891444 Active 2024 Natalie lo MD [address] , [address], [place], [address], [place] [facility] 15:31:26 Degeneration of thoracic intervertebral disc 20019021 Active 2024 Natalie lo MD [address] , [address], [place], [address], [place] [facility] 15:31:27 Problem Notes None recorded. Procedures Surgical History Date Name Laterality Status Provider Name and Address Organization Details Recorded Time 12/24/19 25 Thoracic Epidural Steroid injection under fluroscopic guidance completed Natalie Mathews MD [address] , [address], [place], [address], [place] [facility] 12/23/2024 15:27:37 total replacement of hip completed Natalie Mathews MD [address] , [address], [place], [address], [place] [facility] 12/08/2024 13:28:08 total knee replacement completed Natalie Mathews MD [address] , [address], [place], [address], [place] [facility] 12/08/2024 13:28:32 extraction of cataract completed Natalie Mathews MD [address] , [address], [place], [address], [place] [facility] 12/08/2024 13:28:46 cervical arthrodesis by anterior technique completed Natalie Mathews MD [address] , [address], [place], [address], [facility] - [facility] 12/08/2024 13:29:11 hysterectomy completed Natalie Mathews MD [address] , [address], [place], [address], [place] [facility] 12/08/2024 13:29:33 thumb surgery completed Natalie Mathews MD [address] , [address], [place], [address], [facility] - [facility] 12/08/2024 13:29:55 Imaging Results None recorded. Procedure Notes None recorded. Medical Equipment None Reported. Allergies Allergen ID Allergen Name Allergen Category Reaction Reaction Severity Criticality Documentation Date Start Date Code Code System Note Provider Name and Address Organization Details Recorded Time 62198 Substance with sulfonami de structure and antibacte rial mechanism of action (substanc e) medicatio n nausea Not available Not available 12/08/2024 [id number] SNOMED Natalie lo MD [address] , [address], [place], [address], [place] - [facility] 13:15:22 Medications Name Sig Start Date Stop Date Status Note LastModified by Organization Details LastModified Time prednisone 10 mg tablet TAKE 4 TABLETS BY MOUTH ONCE A DAY 30 DAYS 12/08 completed Not Available Not Available Not Available ipratropium 0.5 mg-albutero l 3 mg (2.5 mg base)/3 mL nebulizatio n soln TAKE 1 VIAL EVERY 4 TO 6 HOURS NEEDED. 2024 active Not Available Not Available Not Avai lable atorvastati n 10 mg tablet 12/08 completed Not Available Not Available Not Available azithromyci n 250 mg tablet TAKE 2 TABLETS BY MOUTH TODAY, THEN TAKE 1 TABLET DAILY FOR 4 DAYS DIRECTED 12/23 completed Not Available Not Available Not Available tizanidine 4 mg tablet TAKE 1 TABLET BY MOUTH AT BEDTIME 12/08 completed Not Available Not Available Not Available benzonatate 200 mg capsule TAKE 1 CAPSULE BY MOUTH THREE TIMES A DAY FOR 10 DAYS NEEDED *NOT COV'D* 01/29 completed Not Available Not Available Not Available prednisone 20 mg tablet TAKE 1 TABLET BY MOUTH EVERY DAY FOR 5 DAYS 12/08 completed Not Available Not Available Not Available metoprolol succinate ER 100 mg tablet,exte nded release 24 hr TAKE 1 TABLET ONCE DAILY active Not Available Not Available No t Available tramadol 50 mg tablet TAKE 1/2 TO 1 TABLET BY MOUTH EVERY 6 HOURS NEEDED FOR PAIN. MAX 6 TABS DAILY. 01/29 completed Not Available Not Available Not Available amoxicillin 500 mg tablet TAKE 4 TABLETS 1HOUR BEFORE APPT active Not Available Not Available No t Available levothyroxi ne 50 mcg tablet TAKE 1 TABLET DAILY, EXCEPTON SUNDAY S, TAKE 2 TABLETS FOR A TOTAL OF 8 TABLETS EVERY WEEK. active Not Available Not Available No t Available gabapentin 300 mg capsule TAKE 3 CAPSULES BY MOUTH DAILY NEEDED 01/29 completed Not Available Not Available Not Available codeine 10 mg-guaifene sin 100 mg/5 mL oral liquid TAKE 2.5ML BY MOUTH EVERY 4 TO 6 HOURS NEEDED 12/08 completed Not Available Not Available Not Available Baby Aspirin 81 mg chewable tablet Chew 1 tablet every day by oral route. active Not Available Not Available No t Available levofloxaci n 750 mg tablet TAKE 1 TABLET BY MOUTH EVERY DAY 12/08 completed Not Available Not Available Not Available methylpredn isolone 4 mg tablets in a dose pack TAKE 6 TABLETS ON DAY 1 DIRECTED ON PACKAGE AND DECREASE BY 1 TAB EACH DAY FOR A TOTAL OF 6 DAYS 12/08 completed Not Available Not Available Not Available albuterol sulfate HFA 90 mcg/actuati on aerosol inhaler INHALE 1 PUFF BY MOUTH EVERY 4 HOURS NEEDED active Not Available Not Available No t Available cefdinir 300 mg capsule TAKE ONE CAPSULE BY MOUTH TWICE DAILY 12/08 completed Not Available Not Available Not Available fluticasone propionate 110 mcg/actuati on HFA aerosol inhaler INHALE 2 PUFFS BY MOUTH TWICE A DAY active Not Available Not Available No t Available amoxicillin 875 mg-potassiu m clavulanate 125 mg tablet TAKE 1 TABLET BY MOUTH TWICE A DAY FOR 10 DAYS 01/29 completed Not Available Not Available Not Available azithromyci n 500 mg tablet TAKE 1 TABLET BY MOUTH EVERY DAY FOR 5 DAYS 12/08 completed Not Available Not Available Not Available rosuvastati n 40 mg tablet TAKE 1 TABLET ONCE DAILY active Not Available Not Available No t Available DILT-XR 120 mg capsule, extended release TAKE 1 CAPSULE BY MOUTH EVERY DAY FOR 30 DAYS 12/08 completed Not Available Not Available Not Available duloxetine 60 mg capsule,del ayed release TAKE 1 CAPSULE DAILY active Not Available Not Available No t Available peg 3350-electr olytes 236 gram-22.74 gram-6.74 gram-5.86 gram solution MIX AND DRINK 8 OUNCES DIRECTED 01/29 completed Not Available Not Available Not Available Gavilyte-C 240 gram-22.72 gram-6.72 gram-5.84 gram oral solution TAKE 4,000 ML BY MOUTH 1 TIME FOR 1 DOSE. DRINK 8 OZ EVERY 10-15 MINUTES UNTIL SOLUTION IS GONE 01/29 completed Not Available Not Available Not Available Vios Aerosol Delivery System USE DIRECTED 12/08 completed Not Available Not Available Not Available Combivent Respimat 20 mcg-100 mcg/actuati on solution for inhalation 2 PUFFS INHALATIO N EVERY 6 HRS NEEDED 2024 active Not Available Not Available Not Avai lable cyanocobala min (vit B-12) 5,000 mcg disintegrat ing tablet DISSOLVE 1 TABLET BY MOUTH EVERY DAY active Not Available Not Available No t Available Eliquis 5 mg tablet TAKE 1 TABLET TWICE A DAY active Not Available Not Available No t Available Anoro Ellipta 62.5 mcg-25 mcg/actuati on powder for inhalation USE 1 INHALATIO N ORALLY ONCE DAILY active Not Available Not Available No t Available Trelegy Ellipta 100 mcg-62.5 mcg-25 mcg powder for inhalation INHALE 1 PUFF ONCE DAILY 12/08 completed Not Available Not Available Not Available Vitals Date Recorded Heart rate Oxygen saturation Oxygen saturation in Arterial blood by Pulse oximetry Body height Body mass index (BMI) Body weight Systolic blood pressure Diastolic blood pressure Provider Name and Address Organization Details Last Updated DateTime 5 75 /min 94 % 94 % 165.1 cm 29.6 kg/m2 77128.4 4 g 117 mm[Hg] 74 mm[Hg] Natalie lo MD [address] , [address], [facility] [place], [address], [facility] - [facility] 5 13:12:45 Date Recorded Body height Heart rate Oxygen saturation Oxygen saturation in Arterial blood by Pulse oximetry Systolic blood pressure Diastolic blood pressure Provider Name and Address Organization Details Last Updated DateTime 5 165.1 cm 69 /min 96 % 96 % 139 mm[Hg] 83 mm[Hg] Pam Bautista [place] - [facility] 5 14:52:50 Date Recorded Body height Heart rate Oxygen saturation Oxygen saturation in Arterial blood by Pulse oximetry Systolic blood pressure Diastolic blood pressure Provider Name and Address Organization Details Last Updated DateTime 5 165.1 cm 75 /min 97 % 97 % 104 mm[Hg] 71 mm[Hg] Polly Christensenduke real [place] - [facility] 10:26:58 Social History Question Answer Notes LastModified by Organizat ion Details LastModified Time Tobacco Smoking Status Former Smoker quit 40 years ago Natalie Mathews MD [facility] [address] , [address], [place], [address], [place] [facility] 12/08/2024 13:24:55 Are You Blind Or Do You Have Difficulty Seeing? Yes Glasses Information not available 12/08/2024 Are You Deaf Or Do You Have Serious Difficulty Hearing? No Information not available 12/08/2024 What Is The Highest Grade Or Level Of School You Have Completed Or The Highest Degree You Have Received? [id number] Information not available 12/08/2024 What Is Your Relationship Status? Information not available 12/08/2024 Do You Have Difficulty Walking Or Climbing Stairs? Yes Information not available 12/08/2024 Sex: Unknown Functional Status Question Answer Note LastModified by Organizat ion Details LastModified Time Do you use any illicit or recreational drugs? No Information not available 12/08/2024 Are you currently employed? No Retired- [employer] 18 years , [employer] Information not available 12/08/2024 Do you have difficulty doing errands alone? Yes Information not available 12/08/2024 Do you have difficulty dressing or bathing? No Information not available 12/08/2024 Mental Status Question Answer Note LastModified by Organization D etails LastModified Time Do you have difficulty concentrating, remembering or making decisions? No marielle Information no t available 12/08/2024 Family History Relationship Description Onset Age of this Age Resolved Age Notes LastModified by Organization Details LastModified Time Mother Alcoholism marielle Not rashi ahmadi 12/08/2024 13:24:12 Medical History Condition Response Hyperlipidemia Y Hypertension Y Gynecological HistoryNo gynecological history recorded. Obstetrics History GPAL:G 0 P 0 0 0 0 Past Encounters Encounter ID Performer Location Encounter Start Date Encounter Closed Date Diagnosis/Indication Diagnosis SNOMED-CT Code Diagnosis ICD10 Code Diagnosis Note [id number] Natalie Mathews MD PAIN OFFICE [address] [place] [address] 12/08/2024 12:59:01 12/08/2024 17:17:16 Lumbar radiculopathy 769984948 M54.16 Degenerati on of lumbar intervertebral disc 60446316 M51.362 [id number] Natalie Mathews MD PAIN OFFICE [address] [place] [address] 12/23/2024 14:43:24 12/23/2024 16:21:11 Thoracic radiculopathy 49387575 M54.14 Degenerati on of thoracic intervertebral disc 94018422 M51.34 [id number] Natalie Mathews MD PAIN OFFICE [address] [place] [address] 01/29/2025 10:18:10 01/29/2025 11:02:42 Lumbar radiculopathy 128950660 M54.16 Degenerati on of lumbar intervertebral disc 37801056 M51.362 Health Concerns Section Related Observation LastModified by Organization Detai ls LastModified Time None Recorded Concern Status LastModified by Organization Details LastModified Time None Recorded Advance Directives Directive None Recorded Payers Insurance Date Sequence Insurance Name Policy Number Policy Kruse Covered Member ID Kruse Member ID Guarantor Name 01/26/2025 2 [place] [id number] Altagracia Silva [id number] Altagracia Silva 01/26/2025 1 [place] B[place] [facility] Altagracia Silva [id number] Altagracia Silva Notes Date Note Type Note Provider Name and Address Organization Details Recorded Time 12/08/2024 text/html Altagracia Silva is a 74 year old woman with complaints of mid back pain radiating into her right rib region. She also has pain in her low back which radiates into left lower extremity.MRI Lumbar spine shows Multilevel degenerative changes of the lumbar spine as described. Findings are most pronounced at L4-L5 with moderate to severe spinal canal, severe left and mild to moderate right foraminal stenosis . MRI Thoracic spine shows Multilevel degenerative changes of the thoracic spine . Findings are most pronounced at T1-T2 with mild spinal canal, moderate severe bilateral foraminal stenosis and T9-T10 with moderate to severe right and mild left foraminal stenosis. Multilevel degenerative edema is noted along the end plates, most pronounced at T9-T10 Natalie Mathews MD [address] [facility] , [address], [place], [address], [facility] 12/17/2024 13:05:45 12/23/2024 text/html She is here for a trial of thoracic epidural steroid injection under fluoroscopic guidance. Natalie Mathews MD [address] [facility] , [address], [place], [address], [facility] 12/23/2024 16:27:41 01/29/2025 text/html She is here for a follow up after a thoracic epidural steroid injection under fluoroscopic guidance. She reports 90% pain relief for 4 days with a return of pain. She states she had a gradual return of pain and pain is now back to baseline. She is now complaining more of pain in her left lower extremity. She is complaining of occasionally achiness in her low back . 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 She has to rest after it due to pain. Pain interferes with sleep. She has no history of bladder or bowel incontinence.MRI Lumbar spine shows Multilevel degenerative changes of the lumbar spine . Findings are most pronounced at L4-L5 with moderate to severe spinal canal, severe left and mild to moderate right foraminal stenosis. Natalie Mathews MD [address] [facility] , [address], [place], [address], [facility] 02/02/2025 11:15:01 OBGyn Episode No OBEpisode recorded.
== END 2025-03-02 10:19 | disposition home or self-care (01) ==
LOC: HO.HPS 09:30
PROVIDERS: PCP Internal Medicine; Visit Provider Nurse Practitioner Family
DX: J43.2 Centrilobular emphysema (principal)
CPT/HCPCS: 99214

== ENCOUNTER → 2025-03-02 09:30 | Outpatient (BNVA) | payer MEDICARE, SELFPAY | PROVIDERS: PCP Internal Medicine; Visit Provider Nurse Practitioner Family | DX: J43.2 Centrilobular emphysema (principal); Z79.2 Long term (current) use of antibiotics | CPT/HCPCS: 99212 ==

== ENCOUNTER 2025-06-19 12:56 | Outpatient (AMB) | payer MEDICARE, SELFPAY ==
[2025-06-19 12:59] VITALS: BP 130/70; PULSE 63; O2SAT 98; BMI 32.1
--- NOTE | 2025-06-19 12:59 | A.OFFVIS_ITS ---
Vital Signs 06/19/25 12:59 Height 5 ft 4.25 in Weight 188 lb 7.924 oz BMI 32.1 BP 130/70 Blood Pressure Location Lt brachial Position Sitting Pulse 63 Pulse Source Pulse Oximeter Pulse Oximetry (%) 98 Oxygen Delivery Method Room Air Intake Visit Reasons: COPD Manager Fiber Required: No Accompanied by: Self / Same As Patient Allergies Sulfa (Sulfonamide Antibiotics) Adverse Reaction (Intermediate, Verified 06/19/25 13:02) Gastrointestinal Upset HPI Comments Details: The patient is a 75 year woman presenting with worsening dyspnea symptoms. She had abnormal CT scan of the chest and she was referred to Pulmonary. . The patient has been having worsening dyspnea on exertion now for several months. Seems to be getting worse. Moderate severity. Even with minimal activities she does get short of breath. But typically going up a flight of stairs causes her to have significant discomfort. She was evaluated over the summer with pulmonary function studies which I personally reviewed with her. No evidence of any obstructive nor restrictive ventilatory defects. She did have a mild isolated diffusion impairment. Therefore based on the fact that her PFTs were not significant the abnormal she underwent a cardiac workup. She had a CT coronary artery angiogram back in 2021 demonstrating minimal disease. Subsequently she did undergo more recently a diagnostic left heart cardiac catheterization. Her LVEDP was 10 mmHg. No significant CAD noted. Based on t he fact that she continued to have symptoms she was placed on respiratory inhalers include Breztri and Trelegy. Unfortunately she did have adverse effects to those medications. She was then placed on Anoro which she seems to tolerate. In addition to that she did undergo a CT scan of the chest. Based on the report seems to have some degree of minimal emphysema in the upper lung areas and some reticular changes at the bases suggesting some interstitial lung disease pulmonary fibrosis. During the visit we did go for walking oximetry. Initially her saturations were down so I did get a year probe. Then we were able to follow her pulse oximeter with activity. She did desaturate down to about 91% with activity. We did go up a flight of stairs. Likely that she would desaturated further. Therefore, some of her symptoms indeed is from of hypoxia. the patient does not qualify for oxygen at this time. 11/26/2024 the patient is here for a pulmonary follow-up visit. Overall she is doing well. She did start the Flovent. Is working well. Although she is getting hoarseness. She is using it 2 puffs with spacer in the morning. Will go ahead and to 1 puff twice a day to try to minimize irritation to her throat. She should also rinse and gargle well mouthwash or salt water and start of water. She continues on the Anoro inhaler with good effect. The patient still complains of chest congestion. Although is getting a little better. She brings up some phlegm. We were able to get a sputum culture sent to the microbiology lab. In the meantime I do believe that for her chronic bronchitis and Acapella valve will be helpful to help her with CPT and mucus clearance. If that is not helpful or if her mucus gets worse we can also consider azithromycin 3 times a week or considering Daliresp. The patient will start using the Acapella valve and hopefully she feels better without any additional medication. She will follow up sometime in the fall with a chest x- ray if she has any issues prior to that she will call for an earlier assessment. 06/19/2025 the patient is here for pulmonary follow-up visit. The patient continues have concerns with worsening cough. Chest congestion. Moderate severity. Her inhalers have been only partially helpful. The Acapella valve has been helpful in clearing mucus. But she does not understand why she has so much. The fact that she continues to be symptomatic will go ahead and start her on azithromycin 3 times a week for a course of 6-8 weeks. Also request blood work to see if she is a candidate for biologic therapy for her ongoing symptoms. If she has significant eosinophilia the use of biologic therapies will be helpful. If she does not have eosinophilia then using a PD for inhibitor will be helpful. Otherwise she can stay on the azithromycin 3 times a week if it is helpful as well. Her last CT scan of the chest was back in August 2024 [place]. The patient did have some evidence of chronic bronchitis in addition to some minimal interstitial changes and also a 4 mm pulmonary nodule. Will talk about additional imaging studies in the future. [facility] Medical History (Updated 09/17/24 @ 21:09 by Claus Kramer MD) Pulmonary nodule Hypoxia ILD (interstitial lung disease) COPD (chronic obstructive pulmonary disease) Social History Patient Tobacco Use Status: Former Tobacco user Review of Systems Const Denies fever(s) ENT Reports no additional complaints Card Denies chest pain and Reports dyspnea on exertion Resp Reports dyspnea on exertion and Reports wheezing GI Reports heartburn Musc Reports myalgias Skin/Breast Denies rash Boyd/Lymph Reports no additional complaints Aller/Immun Reports wheezing Physical Exam Vital Signs: Last Vital Signs Pulse 63 06/19/25 12:59 BP 130/70 06/19/25 12:59 Pulse Ox 98 06/19/25 12:59 Oxygen Delivery Method Room Air 06/19/25 12:59 BMI result Body Mass Index 32.1 Const General: comfortable HEENT Head: Yes normocephalic Neck Neck: Yes supple Chest Chest palpation & inspection: normal inspection of the chest Resp Effort & Inspection: normal respiratory effort Auscultation: diminished lung sounds Cardio Heart sounds: S1 normal heart sound present and S2 normal heart sound present GI Palpation (GI): Soft to palpation Skin General skin exam: no rashes or lesions noted Extrem General: Yes no clubbing, cyanosis or edema Assessment & Plan Assessment & Plan (1) COPD (chronic obstructive pulmonary disease): Code(s): J44.9 - Chronic obstructive pulmonary disease, unspecified Category: Medical Qualifiers: COPD type: emphysema Emphysema type: centrilobular Qualified Code(s): J43.2 - Centrilobular emphysema (2) ILD (interstitial lung disease): Code(s): J84.9 - Interstitial pulmonary disease, unspecified Category: Medical (3) Hypoxia: Code(s): R09.02 - Hypoxemia Category: Medical (4) Pulmonary nodule: Comment: 3mm nodule Code(s): R91.1 - Solitary pulmonary nodule Category: Medical Plan The patient is presenting With dyspnea on exertion. may have a component interstitial lung disease. Has underlying interstitial the reticular changes at the bases. Evidence of hypoxia with activity although she does not qualify for oxygen at this time. Need to consider exercise induced pulmonary vascular disease. continue Anoro change Fluticasone HFA 1 puff BID with spacer to minimize adverse effects start Azithromycin MWF Bloodwork ?Biologic therapy sleep with HOB elevated reflux diet acpella valve for CPT exercise regimen F/U 3-4 months Orders: Orders Complete Blood Count Auto Diff 06/19/25 J43.2 - Centrilobular emphysema ECG 12 lead EKG 06/19/25 J44.9 - Chronic obstructive pulmonary disease, unspecified Immunoglobulins,IgG IgA IgM 06/19/25 J43.2 - Centrilobular emphysema Immunoglobulin E 06/19/25 J43.2 - Centrilobular emphysema Erythrocyte Sedimentation Rate 06/19/25 J43.2 - Centrilobular emphysema Medications: New azithromycin Take 1 tablet on Sunday/Sunday/Sunday 250 mg PO 3XW 12 tabs 2RF 28 days K21.9 - Gastro-esophageal reflux disease without esophagitis Coding Level of Care Code Est Pt Level 4 (18320) Complex EM visit Add On G2211 Diagnoses Centrilobular emphysema J43.2 COPD type: emphysema Emphysema type: centrilobular ILD (interstitial lung disease) J84.9 Hypoxia R09.02 Pulmonary nodule R91.1 Time Spent (min) 17
--- OUTSIDE RECORDS SUMMARY | 2025-06-19 15:16 | XMS_ITS | Clinical Summary ---
Author Organization [facility] Address [address] [place] [address] Phone Care Team Providers Care Solar Resource Assessor Name Role Phone Pcp, Unknown Primary Care Provider Unavailabl e Social History Tobacco Use Types Packs/Day Years Used Date Smoking Tobacco: Never Assessed Education Answer Date Recorded Are you interested in more education? Not on elijah e 12/29/2022 Are you concerned about learning? Not on file 12/29/2022 No 12/29/2022 No 12/29/2022 Digital Access Answer Date Recorded No 01/30/2023 No 01/30/2023 Reliable internet access at home? Not on file 01/30/2023 Device with a working camera? Not on file Comments Unknown Sex and Gender Information Value Date Recorded Sex Assigned at Not on file Legal Sex Female 9:48 AM EDT Gender Identity Not on file Sexual Orientation Not on file Plan of Treatment Not on file Medical Devices Not on file Insurance MEDICARE PART A & B BLUE CROSS MEDEX SUPPLEMENT MEDICARE PART A & B OLMSTED [employer] MEDEX SUPPLEMENT MEDICARE PART A & B E-Semble MEDEX SUPPLEMENT MEDICARE PART A & B E-[employer]ble MEDEX SUPPLEMENT MEDICARE PART A & B E-[employer]ble MEDEX SUPPLEMENT MEDICARE PART A & B E-Semble MEDEX SUPPLEMENT MEDICARE PART A & B E-Semble MEDEX SUPPLEMENT MEDICARE PART A & B E-Semble MEDEX SUPPLEMENT MEDICARE PART A & B Moo[place] CROSS MEDEX SUPPLEMENT Care Teams Solar Resource Assessor Relationship Specialty Start Date End Date Pcp, Unknown PCP - General 02/03/20 Additional Source Comments The information contained in this document represents components of the legal health record. It is not the complete legal health record.[facility]
--- OUTSIDE RECORDS SUMMARY | 2025-06-19 15:16 | XMS_ITS | Data Portability ---
Author Organization [facility] Address [address] [place] [address] Care Team Providers Care Senior Strategy Manager Name Role Phone FILEMON KEVINELI Primary Care [...] Recorded Time Pain of left knee joint [id number] Active 2023 Fly Salguero MD [address], [place], [address], [facility] 06:31:04 Problem Notes None recorded. Procedures Surgical History Date Name Laterality Status Provider Name and Address Organization Details Recorded Time 12/26/19 24 total knee replacement completed Elizabeth Mclaughlin [facility] 06/02/2024 11:41:32 06/05/20 23 [facility] 11:42:36 01/24/20 23 [facility]24 11:42:08 hysterectomy completed [facility] 06/02/2024 11:45:02 [facility]24 11:45:44 right cataract extraction completed [facility] 06/02/2024 11:45:58 Hand Surgery completed [facility], [facility] 06/02/2024 11:46:10 Imaging Results None recorded. Procedure Notes None recorded. Medical Equipment None Reported. Allergies Allergen ID Allergen Name Allergen Category Reaction Reaction Severity Criticality Documentation Date Start Date Code Code System Note Provider Name and Address Organization Details Recorded Time 60590 Substance with sulfonami de structure and antibacte rial mechanism of action (substanc e) medicatio n Not available Not available Not available 06/02/2024 [id number] SNOMED Elizabethramila Mclaughlin [facility], [facility] 11:46:35 Medications Name Sig Start Date [...] Not Available Not Available duloxetine 60 mg capsule,ramone yed release active Not Available Not Available [...] Updated DateTime 06/02/2024 167.64 cm 25.8 kg/m2 50241.[address] [facility], 06/02/2024 11:56:27 Social History Question Answer Notes LastModified by Organizat ion Details LastModified Time Tobacco Smoking Status Never Smoker Elizabeth Arnoldo null, [place] [facility] 06/02/2024 11:56:38 Are You Currently In School? No Information not available 06/02/2024 Sex: Unknown Functional Status Question Answer Note LastModified by Organizat ion Details LastModified Time Do you use any illicit or recreational drugs? No Information not available 06/02/2024 Do you or have you ever used any other forms of tobacco or nicotine? No Information not available 06/02/2024 What is your level of alcohol consumption? None Information not available 06/02/2024 Are you currently employed? No Information not available 06/02/2024 Mental Status None recorded. Family History Nothing Reported. Medical History Condition Response Heart Disease Y COPD Y Gynecological HistoryNo gynecological history recorded. Obstetrics History GPAL:G 0 P 0 0 0 0 Past Encounters Encounter ID Performer Location Encounter Start Date Encounter Closed Date Diagnosis/Indication Diagnosis SNOMED-CT Code Diagnosis ICD10 Code Diagnosis IMO Codes Diagnosis Note [id number] Fly Salguero MD [address] [address] 06/02/2024 10:54:06 06/02/2024 11:37:39 Pain of left knee joint 5293967503 49159 M25.562 548143 History of total knee arthroplasty [id number] 105 Z96.652 [id number] Health Concerns Section Related Observation LastModified by Organization Detai ls LastModified Time None Recorded Concern Status LastModified by Organization Details LastModified Time None Recorded Advance Directives Directive None Recorded Payers Insurance Date Sequence Insurance Name Policy Number Policy Krsue Covered Member ID Kruse Member ID Guarantor Name 06/02/2024 1 [place]: ISAEL Silva [id number] Altagracia Silva 06/05/2024 2 [place] [id number] Altagracia Silva [id number] Altagracia Silva Notes Date Note Type Note Provider Name and Address Organization Details Recorded Time 06/02/2024 text/html 74-year-old female here for an evaluation of left knee [...] Fly Salguero MD [address], [place], [address], [facility] 06/04/2024 16:32:36 OBGyn Episode No OBEpisode recorded.
--- OUTSIDE RECORDS SUMMARY | 2025-06-19 15:17 | XMS_ITS | Encounter Summary ---
Author Organization [facility] Address [address] [place] [address] Phone Care Team Providers Care Sandblaster Paint Sprayer Name Role Phone Pcp, Unknown Primary Care Provider Unavailabl e Encounter Details Date Type Department Care Team (Latest Contact Info) Description 02/05/2020 Ancillary Orders [facility] [address] [place] [address] Carina Gill MD [address] [address] [email or web address] Paroxysmal atrial fibrillation Social History Tobacco Use Types Packs/Day Years Used Date Smoking Tobacco: Never Assessed Comments Unknown Sex and Gender Information Value Date Recorded Sex Assigned at Not on file Legal Sex Female 9:48 AM EDT Gender Identity Not on file Sexual Orientation Not on file documented as of this encounter Plan of Treatment Not on file documented as of this encounter Results * Holter Monitor 48 Hours (02/05/2020 12:05 PM EDT) Anatomical Region Laterality Modality Heart Other Narrative 02/05/2020 12:31 PM EDT Holter monitor report Indication paroxysmal atrial fibrillation Findings: The underlying rhythm is a sinus rhythm with an average heart rate 64 bpm, minimal heart rate 48 bpm, max heart rate 146 bpm. There are rare isolated PVCs. There are rare premature atrial contractions and very rare atrial couplets. No evidence of atrial fibrillation was seen. There were several short runs of atrial tachycardia. The nose most notable was a 10 beat run at a rate around 150 bpm. Conclusion: There is no evidence of atrial fibrillation. There was a 10 beat run of a supraventricular tachycardia at a rate around 150 bpm. Procedure Note Sang Page MD - 02/05/2020 Holter monitor report Indication paroxysmal atrial fibrillation Findings: The underlying rhythm is a sinus rhythm with an average heart rate 64 bpm,minimal heart rate 48 bpm, max heart rate 146 bpm. There are rare isolated PVCs. There are rare premature atrial contractions and very rare atrialcouplets. No evidence of atrial fibrillation was seen. There were several shortruns of atrial tachycardia. The nose most notable was a 10 beat run at arate around 150 bpm. Conclusion: There is no evidence of atrial fibrillation. There was a 10 beat run of a supraventricular tachycardia at a rate [id number] bpm. us Carina Gill MD [facility] Final Result documented in this encounter Visit Diagnoses Diagnosis Paroxysmal atrial fibrillation Atrial fibrillation Paroxysmal atrial fibrillation Atrial fibrillation documented in this encounter Care Teams Sandblaster Paint Sprayer Relationship Specialty Start Date End Date Pcp, Unknown PCP - General 02/03/20 documented as of this encounter Additional Source Comments The information contained in this document represents components of the legal health record. It is not the complete legal health record.[facility]
--- OUTSIDE RECORDS SUMMARY | 2025-06-19 15:17 | XMS_ITS ---
Author Name [facility] Organization Unknown History of Medication Use Medication Directions Dispensed Refills Start Date End Date Stat amoxicillin 500 mg tablet TAKE 4 CAPSULES BY MOUTH ONE HOUR BEFORE DENTAL APPOINTMENT active Anoro Ellipta 62.5 mcg-25 mcg/actuation powder for inhalation act jessica azithromycin 250 mg tablet active benzonatate 200 mg capsule active cefdinir 300 mg capsule TAKE ONE CAPSULE BY MOUTH TWICE DAILY active codeine 10 mg-guaifenesin 100 mg/5 mL oral liquid TAKE 2.5ML BY MOUTH EVERY 4 TO 6 HOURS NEEDED active Combivent Respimat 20 mcg-100 mcg/actuation solution for inhalation 2 PUFFS INHALATION EVERY 6 HRS NEEDED active cyclobenzaprine 10 mg tablet TAKE 1 TABLET BY MOUTH THREE TIMES A DAY active duloxetine 60 mg capsule,delayed release active Eliquis 2.5 mg tablet TAKE 1 TABLET BY MOUTH TWO TIMES A DAY FOR 7 DAYS THEN RESUME HOME DOSE active Eliquis 5 mg tablet TAKE 1 TABLET BY MOUTH TWICE A DAY FOR 90 DAYS active ipratropium 0.5 mg-albuterol 3 mg (2.5 mg base)/3 mL nebulization soln TAKE 1 VIAL EVERY 4 TO 6 HOURS NEEDED. active levofloxacin 750 mg tablet TAKE 1 TABLET BY MOUTH EVERY DAY active levothyroxine 50 mcg tablet active metoprolol succinate ER 100 mg tablet,extended release 24 hr active neomycin 3.5 mg/g-polymyxin B 10,000 unit/g-dexameth 0.1 % eye oint APPLY 1 A SMALL AMOUNT INTO AFFECTED EYE TWICE A DAY DIRECTED FOR 1 WEEK ONLY active oxycodone 5 mg tablet TAKE 1 TO 2 TABLETS BY MOUTH EVERY 4 HOURS NEEDED FOR SEVERE PAIN active pantoprazole 40 mg tablet,delayed release TAKE 1 TABLET BY MOUTH EVERY DAY active prednisone 10 mg tablet active rosuvastatin 40 mg tablet active tramadol 50 mg tablet TAKE 1 TABLET BY MOUTH THREE TIMES A DAY NEEDED FOR PAIN active Trelegy Ellipta 100 mcg-62.5 mcg-25 mcg powder for inhalation INHALE 1 PUFF ONCE DAILY active Vios Aerosol Delivery System USE DIRECTED active Allergies Allergen Reaction Severity Comment Documented Date Source Statu s SULFA (SULFONAMIDE ANTIBIOTICS) ENS_AONECT Problems Problem Status Onset Date Problem Type Date of Resoluti on Source Pain of left knee joint active 2024-06-02 ProblemAct ENS_AONECT Encounters Encounter Type Encounter Reason Primary Diagnosis Location Date Ambulatory [facility] 06/05/2024 Ambulatory [facility] 06/02/2024 Ambulatory [facility] 06/02/2024 Ambulatory [facility] 05/16/2024 Ambulatory [facility] 05/13/2024 Ambulatory [facility] 05/13/2024
--- OUTSIDE RECORDS SUMMARY | 2025-06-19 15:17 | XMS_ITS | Patient Health Record ---
Author Organization Mil Gill MD Address [address] [place] [address] [phone] Care Team Providers Care Testing Consultant Name Role Phone iMl Gill Primary Care Provider Monica Tineo Unavailable [phone] Allergies Allergen (clinical drug ingredient) Drug/Non Drug Allergy documented on EMR Reaction Allergy Type Onset Date Status Substance with sulfonamide structure and antibacterial mechanism of action (substance) Sulfa (sulfonamide antibiotics) (uncoded) Unknown Allergy Active Results Component Value Reference Range Notes HCV Antibody-[id number] Reviewed date:02/06/2025 01:20:10 PM Interpretation: Performing Lab:[facility], [employer] [facility], Phone - [phone], Director - MDBraydeny Notes/Report: Test(s) 549152-Kdbuaagygbg, Total; 366843-Zplzyzpbvcyxy; 850272-YNI-N; 059632-w-fcf031; 749194-Queljmjezpzjj Acid, Serum was developed and its performance characteristics determined by [facility]. It has not been cleared or approved by the Food and Drug Administration. Hep C Virus Ab Non Reactive Non Reactive HCV antibody alone does not differentiate between previously resolved infection and active infection. Equivocal and Reactive HCV antibody results should be followed up with an HCV RNA test to support the diagnosis of active HCV infection. APOE Alzheimer's Risk-[id number] Reviewed date:02/06/2025 01:20:09 PM Interpretation: Performing Lab:[facility], [address] [facility], [place], Phone - [phone], Director - MDJodry Notes/Report: Test(s) 304257-Wswtmdpkpyq, Total; 376570-Clmxgspwzzpws; 858714-ADU-C; 950907-w-cma563; 970321-Kbmhzujwfjzdz Acid, Serum was developed and its performance characteristics determined by [facility]. It has not been cleared or approved by the Food and Drug Administration. Methodology: Patient DNA is assayed for the APOE genotype by PCR amplification of a specific region in exon 4 of the APOE gene followed by digestion with restriction enzyme Demonstrator [employer] I and separation of fragments by polyacrylamide gel electrophoresis. This approach allows the APOE E2, E3, and E4 alleles to be distinguished. Analytical sensitivity and specificity are >99.5%. Individuals are interpreted as having one of the following genotypes: E2/E2, E3/E3, E4/E4, E2/E3, E2/E4, E3/E4. APO E Genotyping Result: E3/E3 Interpretation: Negative for the APOE4 variant that is associated with increased risk for late onset Alzheimer's disease (AD). E3/E3 is the most common APOE genotype and is not associated with increased risk for AD. RECOMMENDATIONS Genetic counseling is recommended. Due to the lack of measures to prevent the development of AD, the ACMG/NSGC guidelines do not recommend presymptomatic testing, but if it is performed, guidelines are provided (Gia POSADA et al. 2011). The APOE Genotyping: Alzheimer's Risk test is not recommended for children. NOTE: This is not a diagnostic test. Results should be interpreted along with clinical findings and other data. This test evaluates only for the APOE genotype and cannot detect genetic abnormalities elsewhere in the genome. It should be realized that there are possible sources of error including sample misidentification, rare technical errors, trace contamination of PCR reactions, and rare genetic variants that may interfere with analysis. For inquiries or genetic consultation, please call [facility] at . Comment: INFORMATION ABOUT THE APOE GENOTYPE AND ALZHEIMER'S DISEASE Alzheimer's disease (AD) is the most common form of dementia in the elderly and currently affects more than 5 million Americans. It is a progressive neurodegenerative disorder with brain findings of plaques and neurofibrillary tangles containing beta-amyloid and tau protein respectively. The predominant form of AD is late onset (age > 60-65), which can be familial (15-20%) or sporadic. The APOE4 variant increases the risk for late onset AD and may contribute to the pathology of the disease. This risk is increased by approximately 2 to 3-fold for individuals with one copy of the APOE4 variant and by approximately 10 [id number]-oytu for individuals with two copies of this variant (E4/E4 genotype). The APOE2 variant has some protective effect against development of late onset AD. The lifetime risk for late onset AD is approximately 10-12% in the general population, though it is higher in women than men and doubles when there is a first degree relative with this disorder. The lifetime risk is approximately 9% for individuals negative for APOE4, and for individuals with E4/E4 may be as high as 25% for males and 45% for females. Among patients with late onset AD, the presence of APOE4 may lead to earlier development of symptoms. However, APOE4 is neither necessary nor sufficient for the development of AD. Approximately 30-50% of patients with late onset AD do not have an APOE4 allele. APOE4 is common, with 25% of the general population having one copy and 1% having two copies of this variant. Among patients with late onset AD, 50-70% are positive for APOE4. The development of late onset AD is influenced by many factors other than APOE4 including age, gender, family history, level of education and history of head trauma. Midlife cardiovascular risk factors in individuals with APOE4 also increase risk for cognitive decline. A number of genetic influences in addition to APOE4 have also been reported and are under investigation. This test was developed and its performance characteristics determined by [facility]. It has not been cleared or approved by the Food and Drug Administration. The FDA has determined that such clearance or approval is not necessary. REFERENCES Ely A et al. Sex modifies the APOE-related risk of developing Alzheimer disease. Annal Neurol 2014;75(4):563-573 Lonnie HOLMAN. Alzheimer Disease Overview. GeneReviews (internet). Gus SOSA et al., editors. [facility]: [facility], [place], [place]. Last revised 2014. Gia JS et al. Genetic counseling and testing for Alzheimer disease: Joint practice guidelines of the [place] [employer] and the National Society of Genetic Counselors. Nesha in Med 2011;13(5)598-60. Ezra LOERA. Apolipoprotein E: Implications for AD neurobiology, epidemiology and risk assessment. Neurobiology of Aging 2011;32:778-790 Comp. Metabolic Panel (14)-3 79979 Reviewed date:02/06/2025 01:20:09 PM Interpretation: Performing Lab:[facility] [place], [address] [facility], Phone - [phone], [facility] Notes/Report: Test(s) 981660-Ysdqqxtdbli, Total; 852295-Pogouvzdxcvva; 922853-XPQ-L; 198671-j-vsf884; 906819-Gvewncxpqldvo Acid, Serum was developed and its performance characteristics determined by [facility]. It has not been cleared or approved by the Food and Drug Administration. Glucose 85 70-99 mg/dL BUN 22 8-27 mg/dL Creatinine 0.87 0.57-1.00 mg/dL eGFR 69 >59 mL/min/1.73 BUN/Creatinine Ratio 25 12-28 Sodium 142 134-144 mmol/L Potassium 4.2 3.5-5.2 mmol/L Chloride 104 96-106 mmol/L Carbon Dioxide, Total 23 20-29 mmol/L Calcium 10.0 8.7-10.3 mg/dL Protein, Total 6.7 6.0-8.5 g/dL Albumin 4.8 3.8-4.8 g/dL Globulin, Total 1.9 1.5-4.5 g/dL Bilirubin, Total 1.3 0.0-1.2 mg/dL Alkaline Phosphatase 91 44-121 IU/L AST (SGOT) 43 0-40 IU/L ALT (SGPT) 55 0-32 IU/L Vitamin D, 07-Xkqnuwd-640479 Reviewed date:02/06/2025 01:20:09 PM Interpretation: Performing Lab:[facility] [place], [address] [facility], Phone - [phone], Director - [facility] Notes/Report: Test(s) 078474-Befpuezfpmy, Total; 430445-Uxmnhhblzjkvi; 519209-GYJ-T; 861840-y-kuw521; 802799-Wbbmxahygcrvo Acid, Serum was developed and its performance characteristics determined by [facility]. It has not been cleared or approved by the Food and Drug Administration. Vitamin D, 25-Hydroxy 33.3 30.0-100.0 ng/mL Vitamin D deficiency has been defined by the [place] of [employer] and an Endocrine Society practice guideline as a level of serum 25-OH vitamin D less than 20 ng/mL (1,2). The Endocrine Society went on to further define vitamin D insufficiency as a level between 21 and 29 ng/mL (2). 1. IOM ([place] of [employer]). 2010. Dietary reference intakes for calcium and D. [place]: The National Academies Press. 2. Lashanda MF, Jailene LONGORIA, Susan AVILEZ, et al. Evaluation, treatment, and prevention of vitamin D deficiency: an Endocrine Society clinical practice guideline. JCEM. 2010; 96(7):1911-30. CBC With Differential/Platel et-013889 Reviewed date:02/06/2025 01:20:09 PM Interpretation: Performing Lab:[facility] [place], [address], [place], Phone - [phone], Director - Susy Notes/Report: Test(s) 871569-Idbjaasavij, Total; 146736-Fbvgffnmlbvzo; 150587-YZS-Q; 016106-t-iev981; 604859-Syvvzuffaugix Acid, Serum was developed and its performance characteristics determined by [facility]. It has not been cleared or approved by the Food and Drug Administration. WBC 7.0 3.4-10.8 x10E3/uL RBC 4.34 3.77-5.28 x10E6/uL Hemoglobin 14.5 11.1-15.9 g/dL Hematocrit 44.8 34.0-46.6 % MCV 103 79-97 fL MCH 33.4 26.6-33.0 pg MCHC 32.4 31.5-35.7 g/dL RDW 14.4 11.7-15.4 % Platelets 215 150-450 x10E3/uL Neutrophils 61 Not Estab. % Lymphs 24 Not Estab. % Monocytes 11 Not Estab. % Eos 2 Not Estab. % Basos 1 Not Estab. % Neutrophils (Absolute) 4.3 1.4-7.0 x10E3/uL Lymphs (Absolute) 1.7 0.7-3.1 x10E3/uL Monocytes(Absolute) 0.7 0.1-0.9 x10E3/uL Eos (Absolute) 0.2 0.0-0.4 x10E3/uL Baso (Absolute) 0.1 0.0-0.2 x10E3/uL Immature Granulocytes 1 Not Estab. % Immature Grans (Abs) 0.0 0.0-0.1 x10E3/uL Urinalysis, Complete-[id number] Reviewed date:02/06/2025 01:20:08 PM Interpretation: Performing Lab:[facility] [place], [facility], Phone - [phone], Director - [facility] Notes/Report: Test(s) 069327-Teimjuezeoh, Total; 087147-Nrenyyjlzygpg; 644045-QRJ-P; 905802-r-bzg033; 959080-Kbbiexiguymcy Acid, Serum was developed and its performance characteristics determined by [facility]. It has not been cleared or approved by the Food and Drug Administration. Test(s) 589578-Qlizaohmjay, Total; 608789-Sgptpxfifwdfb; 383049-XVL-S; 783424-q-zpl604; 292310-Hwwaujaifndia Acid, Serum was developed and its performance characteristics determined by [facility]. It has not been cleared or approved by the Food and Drug Administration. Specific [place] 1.027 1.005-1.030 pH 5.5 5.0-7.5 Urine-Color Yellow Yellow Appearance Clear Clear WBC Esterase Negative Negative Protein Negative Negative/Trace Glucose Negative Negative Ketones Trace Negative Occult Blood Negative Negative Bilirubin Negative Negative Urobilinogen,Semi-Qn 0.2 0.2-1.0 mg/dL Nitrite, Urine Negative Negative Microscopic Examination Micr oscopic follows if indicated. Microscopic Examination See below: Micr oscopic was indicated and was performed. WBC None seen 0 - 5 /hpf RBC 0-2 0 - 2 /hpf Epithelial Cells (non renal) 0-10 0 - 10 /hpf Casts None seen None seen /lpf Crystals Present N/A Crystal Type Calcium Oxalate N/A Bacteria None seen None seen/Few Respiratory Panel w/ SARS-Co [id number] Reviewed date:12/28/2024 12:55:44 PM Interpretation: Performing Lab:[facility] [place], [facility], [place], Phone - [phone], Director - [facility] Notes/Report: Clinical Information:SRC: Adenovirus Not Detected Not Detected Coronavirus HKU1 Not Detected Not Detected Coronavirus NL63 Not Detected Not Detected Coronavirus 229E Not Detected Not Detected Coronavirus OC43 Not Detected Not Detected SARS-CoV-2 Not Detected Not Detected Human Metapneumovirus Not Detected Not Detected Human Rhinovirus/Enterovirus Not Detected Not Detected Influenza A Not Detected Not Detected Influenza A/H1 Not Detected Not Detected Influenza A/H1-2009 Not Detected Not Detected Influenza A/H3 Not Detected Not Detected Influenza B Not Detected Not Detected Parainfluenza 1 Not Detected Not Detected Parainfluenza 2 Not Detected Not Detected Parainfluenza 3 Not Detected Not Detected Parainfluenza 4 Not Detected Not Detected Respiratory Syncytial Virus Not Detected Not Detected Bordetella parapertussis Not Detected Not Detected Bordetella pertussis Not Detected Not Detected Chlamydophila pneumoniae Not Detected Not Detected Mycoplasma pneumoniae Not Detected Not Detected TISSUE EXAM Reviewed date:12/21/2024 12:02:30 PM Interpretation: Performing Lab: Notes/Report: Final Diagnosis A. [...] 10% NB formalin fixed and paraffin embedded. Hemoglobin P3w-384212 Reviewed date:02/06/2025 01:20:08 PM Interpretation: Performing Lab:[facility], [address], [place], Phone - [phone], Director - Susy Notes/Report: Test(s) 125288-Vnyoswcvith, Total; 673853-Gbpznbqcttoxk; 323199-FGR-S; 544621-e-urb633; 466002-Xvktcqdulvlkd Acid, Serum was developed and its performance characteristics determined by [facility]. It has not been cleared or approved by the Food and Drug Administration. Hemoglobin A1c 5.7 4.8-5.6 % . Prediabetes: 5.7 - 6.4 Diabetes: >6.4 Glycemic control for adults with diabetes: <7.0 Vitamin E31-936052 Reviewed date:02/06/2025 01:20:08 PM Interpretation: Performing Lab:[facility], [address] [place] [address], Phone - [phone], Director - [facility] Notes/Report: Test(s) 849136-Qbgyrflegay, Total; 602203-Askuobqcsthld; 609094-AXT-X; 831629-a-jzt879; 364322-Zzsqbzzfmgbgn Acid, Serum was developed and its performance characteristics determined by [facility]. It has not been cleared or approved by the Food and Drug Administration. Vitamin B12 1834 068-0432 pg/mL Thyroxine (T4) Free, Direct- 482190 Reviewed date:02/06/2025 01:20:08 PM Interpretation: Performing Lab:[facility], Phone - [phone], Director - [facility] Notes/Report: Test(s) 480242-Btautqbnnpj, Total; 727920-Sgbqwgouwhdkn; 679970-ANH-F; 533278-f-vyt168; 950039-Ewabucbuvkdne Acid, Serum was developed and its performance characteristics determined by [facility]. It has not been cleared or approved by the Food and Drug Administration. T4,Free(Direct) 1.10 0.82-1.77 ng/dL TSH-230586 Reviewed date:02/06/2025 01:20:09 PM Interpretation: Performing Lab:[facility] [address] [place] [address], Phone - [phone], [facility] Notes/Report: Test(s) 075888-Bjkyokqjcsm, Total; 742604-Upjkszbnvaegi; 877255-IGN-I; 132027-x-yly510; 117603-Ugizjkauiivqr Acid, Serum was developed and its performance characteristics determined by [facility]. It has not been cleared or approved by the Food and Drug Administration. TSH 1.970 0.450-4.500 uIU/mL Reticulocyte Count-010052 Reviewed date:02/06/2025 01:20:09 PM Interpretation: Performing Lab:[facility] [place], [address] [facility], Phone - [phone], Director - [facility] Notes/Report: Test(s) 835847-Qvhrpwtvnlp, Total; 639035-Xebujfoqnitah; 278397-QAH-L; 500280-d-dms455; 913505-Zrrgycemxnhbl Acid, Serum was developed and its performance characteristics determined by [facility]. It has not been cleared or approved by the Food and Drug Administration. Reticulocyte Count 1.8 0.6-2.6 % Lipid Panel+ApoB-334959 Reviewed date:02/06/2025 01:20:09 PM Interpretation: Performing Lab:[facility] [place], [address] [facility], [place], Phone - [phone], Director - [facility] Notes/Report: Test(s) 061229-Ucwsuhtvqhl, Total; 088974-Xchbtighmshbp; 568117-FBZ-R; 875594-e-ijv669; 108639-Avdzwyuinscri Acid, Serum was developed and its performance characteristics determined by [facility]. It has not been cleared or approved by the Food and Drug Administration. Cholesterol, Total 155 100-199 mg/dL Triglycerides 160 0-149 mg/dL HDL-C 62 >39 mg/dL Non-HDL Cholesterol 93 0-129 mg/dL LDL-C (NIH Calc) 66 0-99 mg/dL . Optimal < 100 Above optimal 100 - 129 Borderline 130 - 159 High 160 - 189 Very high > 189 . Apolipoprotein B 75 <90 mg/dL Desirable < 90 Borderline High 90 - 99 High 100 - 130 Very High >130 ASCVD RISK THERAPEUTIC TARGET CATEGORY APO B (mg/dL) . Very High Risk <80 (if extreme risk <70) High Risk <90 Moderate Risk <90 Methylmalonic Acid, Serum-70 6961 Reviewed date:02/06/2025 01:20:09 PM Interpretation: Performing Lab:[facility] [place], [facility], [place], Phone - [phone], Director - [facility] Notes/Report: Test(s) 703319-Jaddjxwxtep, Total; 902894-Qhlgpqdstrpsr; 487261-BBF-A; 699295-y-mgl064; 010830-Lymtllifurlxk Acid, Serum was developed and its performance characteristics determined by [facility]. It has not been cleared or approved by the Food and Drug Administration. Methylmalonic Acid, Serum 358 0-378 nmol/L Phosphorylated Tau 217 (pTau -217) Reviewed date:02/06/2025 01:20:08 PM Interpretation: Performing Lab:[facility], [facility], [place], Phone - [phone], Director - [facility] Notes/Report: Test(s) 800460-Hggghkgocxk, Total; 119068-Zubqlcjsezycj; 485774-RIX-F; 811500-k-dir877; 907869-Yymnjwhuskkvd Acid, Serum was developed and its performance characteristics determined by [facility]. It has not been cleared or approved by the Food and Drug Administration. p-agq348 0.18 0.00-0.18 pg/mL Clinical cutoff value was established using samples from a patient cohort characterized with amyloid PET data. A p-hog473 value of >0.18 is a reported surrogate marker for beta amyloid pathology, and can be used to facilitate biological identification of Alzheimer's disease (1). p-wvw594 has also been used in clinical trials to monitor patients on anti-amyloid therapy (2,3). Test performed by ACE chemiluminescent enzyme immunoassay (CLEIA). Values obtained with different methods cannot be used interchangeably. The validated limit of quantification is 0.06 pg/mL. Assay detection limit is 0.03 pg/mL. Footnotes 1. Tru Ramirez et al. Diagnostic Accuracy of a Plasma Phosphorylated Tau 217 Immunoassay for Alzheimer Disease Pathology. LATIA neurology (2023). 2. Tru Ramirez et al. Differential roles of A42/40, p-wcp620 and p-xyu471 for Alzheimer's trial selection and disease monitoring. Nature medicine 28.12 (2021): 6926-6389. 3. Emerald MJ, Jessie M, Cheli SC, et al. Association of Donan[employer]ab Treatment With Exploratory Plasma Biomarkers in Early Symptomatic Alzheimer Disease: A Secondary Analysis of the TRAILBLAZER-ALZ Randomized Clinical Trial . LATIA Neurol. 2021;79(12):6490-1655. PET CT, Brain Amyloid (Not y et reviewed by provider) Interpretation: Performing Lab: Notes/Report: MM Digital Mammo Screening Reviewed date:02/06/2025 01:20:07 PM Interpretation: Performing Lab: Notes/Report: PROCEDURE: MM Digital Mammo Screening INDICATION: Screening COMPARISON: Multiple prior mammograms most recently 01/07/2024 TECHNIQUE: Full-field digital CC and MLO 3D tomosynthesis images of both breasts were acquired. Computer-aided detection (CAD) was utilized in the interpretation of this study. DENSITY: The breasts are heterogeneously dense, which may obscure small masses. FINDINGS: No suspicious masses, suspicious microcalcifications, or areas of architectural distortion are seen in either breast to suggest malignancy. Coarse benign-appearing calcifications are present bilaterally. IMPRESSION: No mammographic evidence of malignancy. RECOMMENDATION: Annual mammographic screening BI-RADS: 2 (Benign) Lay letter mailed to patient WSN: [id number] Ordering Physician: Mil Gill Dictated By: Yosi Zavala MD, Kristian Landa MR Brain Reviewed date:02/06/2025 01:20:07 PM Interpretation: Performing Lab: Notes/Report: Original Report PROCEDURE: MR BRAIN without CONTRAST INDICATION: Mild cognitive impairment of uncertain or unknown etiology. TECHNIQUE: Multi-planar, multi-sequence MR imaging of the brain was performed without contrast. COMPARISON: None available. FINDINGS: Diffusion-weighted imaging demonstrates no area of restricted diffusion to suggest acute infarction. There is no intracranial hemorrhage, midline shift, mass effect, or extra-axial fluid collection. There are mild scattered patchy areas of T2 prolongation within the subcortical and deep periventricular white matter, suggesting changes of chronic microvascular ischemia. Brain parenchyma otherwise demonstrates normal morphology and signal characteristics. Midline structures are within normal limits. Major intracranial vessels demonstrate preserved flow voids. Brain volume and ventricular system are within normal limits for age. Visualized paranasal sinuses are unremarkable. Orbits, globes, and mastoid air cells are unremarkable. IMPRESSION: 1.No acute intracranial finding. 2.Global parenchymal volume loss and nonspecific white matter changes of chronic small vessel ischemic disease. Guilherme Calle MD Signed by Guilherme Calle MD Read by: Dr. GUILHERME CALLE M.D. Reviewed and Electronically Signed by: Dr. GUILHERME CALLE M.D. CT Chest High Resolution WO Reviewed date:09/16/2024 12:17:18 PM Interpretation: Performing Lab: Notes/Report: MR Thoracic Reviewed date:11/24/2024 06:16:34 PM Interpretation: [...] Electronically Signed by: GRACE MONZON MD MR Lumbar Reviewed date:11/24/2024 06:16:34 PM Interpretation: [...] MD Reviewed and Electronically Signed by: GRACE [facility] Informed Consent Fo Reviewed date:02/06/2025 01:20:10 PM Interpretation: Performing Lab:[facility] [place], [address], [address], [place], Phone - [phone], Director - [facility] Notes/Report: [facility] Informed Consent Form [facility] Informed Consent Form 02 Please Fax back to [phone]. Many states require laboratories to have documentation that the appropriate health care provider has obtained informed consent from patients before the laboratory conducts genetic testing. Informed consent includes the patient understanding the purpose of the test, how the test is performed, the reliability of the test, alternatives to testing, implications of test results, and options on how to instruct the laboratory to store, use or dispose of the sample when testing is complete. [facility] did not receive any documentation of informed consent for above mentioned patient and ordered tests. Please check the statement applicable to this patient and sign below so that [facility] may release the results for this patient. . [] I authorize and confirm patient consent for the above mentioned genetic test(s). . [] I have provided appropriate informed consent for the above mentioned test(s) and documentation of this consent is maintained in the patient record. . . Health care provider signature _Date . Printed name __ . Fax back to [facility] at [phone] . [facility] IMGEAP Reviewed date:08/29/2024 10:48:11 AM Interpretation: Performing Lab: Notes/Report: See Note [facility], a member of [employer] History: Chronic obstructive pulmonary disease. Comparison: No comparison imaging at this institution. Technique: Helical volumetric imaging of the thorax was performed without IV contrast. DLP: 577.05 mGy/cm [employer] for [employer]denValues VCT Iterative reconstruction technique Findings: The trachea [...] risk factors for lung carcinoma. [place] ([id number]) -------- FINAL REPORT -------- Dictated By: Cassie Castaneda Dictated Date: 08/20/2024 15:22 ET Assigned Physician: Csasie Castaneda Reviewed and Electronically Signed By: Cassie Castaneda Signed Date: 08/20/2024 15:31 ET Workstation ID: [id number] Transcribed By: Self Edit Transcribed Date: 08/20/2024 15:22 ET Reason For Referral Reason faxed Diagnosis 1 Chronic obstructive pulmonary disease, unspecified (J44.9) Referral Organization [facility] Referring Provider First Name Mil Referring Provider Last Name Jairo Referring Provider Speciality Internal M edicine Referred Provider Claus Kramer Referred Provider Specialty Pulmonology General Notes [facility] 02[facility]46[facility]16 PM >faxed Referral Priority Routine Referral Appointment Date 09/17/2024 Reason faxed Diagnosis 1 Spinal stenosis, lum bar region with neurogenic claudication (M48.062) Referral Organization [facility] Referring Provider First Name Mil Referring Provider Last Name Jairo Referring Provider Speciality Internal M edicine Referred Provider Natalie Mathews Referred Provider Specialty [facility] General Notes Arsen LUelle 11/01 03:52:45 PM >faxed Referral Priority Routine Referral Appointment Date 12/23/2024 Reason faxed Diagnosis 1 Spinal stenosis, lum bar region with neurogenic claudication (M48.062) Referral Organization Mil [facility] Referring Provider First Name Mil Referring Provider Last Name Jairo Referring Provider Speciality Internal M edicine Referred Provider [facility] Referral, [facility] Referred Provider Specialty [facility] 01:16[facility]23 PM >Completed [facility] referral form and faxed Referral Priority Routine Referral Appointment Date 12/30/2024 Reason Duplicate Diagnosis 1 Spinal stenosis, lum bar region with neurogenic claudication (M48.062) Referral Organization [facility] Referring Provider First Name Mil Referring Provider Last Name Jairo Referring Provider Speciality Internal edicine Referred Provider [facility] Referral, [facility] Referred Provider Specialty Neurosurgery General Notes Duplicate Referral Referral Priority Routine Medications Medication SIG (Take, Route, Frequency, Duration) Notes Start Date End Date Status Nexlizet 180-10 MG TAKE 1 TABLET ONCE DAILY; Duration: 30 Active Rosuvastatin Calcium 40 MG TAKE 1 TABLET ONCE DAILY; Duration: 90 Active Anoro Ellipta 62.5-25 MCG/ACT USE 1 INHALATION ORALLY ONCE DAILY; Duration: 90 Active Fluticasone Propionate HFA 110 MCG/ACT 2 puffs Inhalation Twice a day Active Eliquis 5 MG TAKE 1 TABLET TWICE A DAY; Duration: 90 Active Cyanocobalamin 1000 MCG 1 lozenge Orally Once a Week Active Metoprolol Succinate ER 100 MG TAKE 1 TABLET ONCE DAILY; Duration: 90 Active Levothyroxine Sodium 50 MCG TAKE 1 TABLET DAILY, EXCEPTON WEDNESDAYS, TAKE 2 TABLETS FOR A TOTAL OF 8 TABLETS EVERY WEEK.; Duration: 90 Active Fluticasone Propionate (Inhal) 100 MCG/ACT 1 puff Inhalation Twice a day Not-Taking Claritin 10 MG 1 tablet Orally Once a day; Duration: 30 day(s) Active Gabapentin 300 MG 3 capsule Orally Once a day; Duration: 30 days As needed 11/12/2024 Not-Taking Ipratropium-Albuterol 20-100 MCG/ACT 2 Puffs Inhalation every 6 hrs As needed 03/17/2024 Active DULoxetine HCl 60 MG TAKE 1 CAPSULE ONCE DAILY; Duration: 90 Active Immunizations Vaccine Route Administration Date Status Comme nts *Influenza, High Dose Seasonal, Quadrivatent Unknown 05/27/2020 Administered *Influenza, High Dose Seasonal, Quadrivatent Unknown 06/01/2021 Administered *PREVNAR 20 IM Intramuscular 09/18/2023 Administered mfd b y Wy[place] *Shingrix Unknown 12/27/2018 Administered *Shingrix Unknown 03/03/2019 Administered COVID 19 (Pfizer 12+) Unknown 12/13/2021 Administered COVID COMIRNATY Pfizer Unknown 07/03/2023 Administered COVID COMIRNATY Pfizer Unknown 06/16/2025 Administered COVID-19 Pfizer BiValent Booster Unknown 06/05/2022 Administered CAUMK-17-Hlhuur Vaccine Unknown 10/13/2020 Administered RLJHJ-68-Gjcjll Vaccine Unknown 11/03/2020 Administered VTXRE-18-Grxlme Vaccine Unknown 06/07/2021 Administered Hep A, adult Unknown 09/02/2019 Administered Influenza Unknown 07/11/2019 Administered Influenza (Fluad) Unknown 06/02/2022 Administered Influenza (Fluad) Unknown 05/19/2023 Administered Influenza (split), 3 yrs and above Unknown 06/09/2025 Administered Influenza, high dose seasonal Unknown 05/24/2016 Administered Influenza, high dose seasonal Unknown 06/17/2017 Administered Mevzernjf-Kzjrkmmyo-Sy al IM Intramuscular 06/13/2018 Administered Pneumococcal polysaccharide PCV 13 IM Intramuscular 09/11/2016 Administered Pneumococcal polysaccharide PPV23 Unknown 08/25/2013 Administered RSV-Arexby Unknown 07/17/2023 Administered Td (adult) preservative free Unknown 12/05/2005 Administered Td (adult) preservative free IM Intramuscular 04/28/2019 Administered Zoster Unknown 02/24/2013 Administered Social History Tobacco Use: Social History Observation Description Date Details (start date - stop date) Former Smoker NA - 09/03/1989 Sex Assigned At : Social History Observation Description Sex Assigned At Female AUDIT-C (Standard) Question Answer Notes Did you [...] W/U Status Risk Notes Problem Pernicious anemia (13753240) Vitamin B12 deficiency anemia due to intrinsic factor deficiency (D51.0) Active confirmed Problem Thrombophilia (021663119) Other thrombophilia (D68.69) Active confirmed Problem Autoimmune thyroiditis (80831590) Autoimmune thyroiditis (E06.3) Active confirmed Problem Vitamin D deficiency (99703042) Vitamin D deficiency, unspecified (E55.9) Active confirmed Problem Obesity due to excess calories (732421439) Other obesity due to excess calories (E66.09) Active confirmed Problem Mixed hyperlipidemia (895805326) Mixed hyperlipidemia (E78.2) Active confirmed Problem Spinal muscular atrophy (4471473) Spinal muscular atrophy, unspecified (G12.9) Active confirmed Problem Sensorineural hearing loss of bilateral ears (disorder) (177819764) Sensorineural hearing loss, bilateral (H90.3) Active confirmed Problem Atherosclerotic heart disease of [place] coronary artery without angina pectoris (457793196208226) Atherosclerotic heart disease of [place] coronary artery without angina pectoris (I25.10) Active confirmed Problem Mitral valve disorder (76755138) Nonrheumatic mitral valve disorder, unspecified (I34.9) Active confirmed Problem Supraventricular tachycardia (6669913) Supraventricular tachycardia (I47.1) Active confirmed Problem Paroxysmal atrial fibrillation (344944579) Paroxysmal atrial fibrillation (I48.0) Active confirmed Problem Chronic obstructive pulmonary disease (27935494) Chronic obstructive pulmonary disease, unspecified (J44.9) Active confirmed Problem Cervical spondylosis without myelopathy (395307063) Other spondylosis with radiculopathy, cervical region (M47.22) Active confirmed Problem Thoracic spondylosis without myelopathy (354201606) Other spondylosis with radiculopathy, thoracic region (M47.24) Active confirmed Problem Radiculopathy due to lumbar intervertebral disc disorder (240519287651996) Intervertebral disc disorders with radiculopathy, lumbar region (M51.16) Active confirmed Problem Acquired trigger finger (0941586) Trigger finger, left middle finger (M65.332) Active confirmed Problem Impaired fasting glucose (831659605) Impaired fasting glucose (R73.01) Active confirmed Problem Long-term current use of anticoagulant (396506237) USP (current) use of anticoagulants (Z79.01) Active confirmed Problem Artificial knee joint present (721681468895) Presence of left artificial knee joint (Z96.652) Active confirmed Problem Neurogenic claudication (993000831) Spinal stenosis, lumbar region with neurogenic claudication (M48.062) Active confirmed Problem Chronic obstructive pulmonary disease with acute lower respiratory infection (795738635) Chronic obstructive pulmonary disease with (acute) lower respiratory infection (J44.0) Active confirmed Problem Body mass index 30.00 to 34.99 (580586327772955) Body mass index [BMI] 31.0-31.9, adult (Z68.31) Active confirmed Problem Vascular dementia (disorder) (098887105) Vascular dementia, mild, without behavioral disturbance, psychotic disturbance, mood disturbance, and anxiety (F01.A0) Active confirmed Problem Mild cognitive disorder (549033589) Mild cognitive impairment of uncertain or unknown etiology (G31.84) Active confirmed Problem Personal history of adenomatous and serrated colon polyps (Z86.0101) Active confirmed Problem Angina co-occurrent and due to coronary arteriosclerosis (disorder) (91234939910364916 ) Atherosclerotic heart disease of [place] coronary artery with other forms of angina pectoris (I25.118) Inactive confirmed Problem Low back pain (299299318) Low back pain (M54.5) Inactive confirmed Problem Localized, primary osteoarthritis of the pelvic region and thigh (715617482) Unilateral primary osteoarthritis, left hip (M16.12) Problem resolved confirmed Vital Signs Heart Rate 73 /min 04/23/2025 Temperature 96.7 degrees Fahrenheit 04/23/2025 Blood pressure diastolic 62 mm Hg 04/23/2025 Oximetry 98 % 04/23/2025 Height 5 ft 4.25 in in 04/23/2025 Blood pressure systolic 118 mm Hg 04/23/2025 Weight 184 lbs 04/23/2025 BMI 31.33 kg/m2 04/23/2025 Encounters Encounter Location Date Provider Diagnosis Mil Gill MD [address] [id number] 07/09/2024 Mil Gill Acute upper respirat ory infection, unspecified J06.9 and Chronic obstructive pulmonary disease, unspecified J44.9 Mil Gill MD [address] [id number] 07/11/2024 Mil Gill Chronic obstructive pulmonary disease with (acute) lower respiratory infection J44.0 Mil Gill MD [address] [id number] 10/14/2024 Mil Gill Dorsalgia, unspecifi ed M54.9 Mil Gill MD [address] [id number] 11/12/2024 Mil Gill Spinal stenosis, lum bar region with neurogenic claudication M48.062 and Other spondylosis with radiculopathy, thoracic region M47.24 Mil Gill MD [address] [id number] 12/18/2024 Monica Tineo Acute bronchitis, unspecified J20.9 and Acute cough R05.1 Mil Gill MD [address] [id number] 01/15/2025 Mil Gill Encounter for genera l adult medical examination without abnormal findings Z00.00 ; Chronic obstructive pulmonary disease, unspecified J44.9 ; Paroxysmal atrial fibrillation I48.0 ; Other thrombophilia D68.69 ; Atherosclerotic heart disease of [place] coronary artery without angina pectoris I25.10 ; Nonrheumatic mitral valve disorder, unspecified I34.9 ; Other obesity due to excess calories E66.09 ; Body mass index [BMI] 31.0-31.9, adult Z68.31 ; Impaired fasting glucose R73.01 ; Mixed hyperlipidemia E78.2 ; Autoimmune thyroiditis E06.3 ; Other spondylosis with radiculopathy, cervical region M47.22 ; Spinal stenosis, lumbar region with neurogenic claudication M48.062 ; Spinal muscular atrophy, unspecified G12.9 ; Vitamin B12 deficiency anemia due to intrinsic factor deficiency D51.0 ; Family history of malignant neoplasm of breast Z80.3 ; Personal history of adenomatous and serrated colon polyps Z86.0101 ; Vitamin D deficiency, unspecified E55.9 ; Encounter for screening for malignant neoplasm of colon Z12.11 ; Encounter for screening mammogram for malignant neoplasm of breast Z12.31 ; Encounter for screening for osteoporosis Z13.820 ; Encounter for screening for cardiovascular disorders Z13.6 ; Encounter for immunization Z23 ; Encounter for antibody response examination Z01.84 ; Sensorineural hearing loss, bilateral H90.3 ; Encounter for screening for other viral diseases Z11.59 and Mild cognitive impairment of uncertain or unknown etiology G31.84 Mil Gill MD [address] [id number] 02/11/2025 Mil Gill Vascular dementia, mild, without behavioral disturbance, psychotic disturbance, mood disturbance, and anxiety F01.A0 Mil Gill MD [address] [id number] 04/23/2025 Mil Gill Atherosclerotic hear t disease of [place] coronary artery without angina pectoris I25.10 ; Mixed hyperlipidemia E78.2 ; Nonrheumatic mitral valve disorder, unspecified I34.9 ; Paroxysmal atrial fibrillation I48.0 ; Other thrombophilia D68.69 ; Other obesity due to excess calories E66.09 ; Body mass index [BMI] 31.0-31.9, adult Z68.31 ; Chronic obstructive pulmonary disease, unspecified J44.9 ; Other spondylosis with radiculopathy, cervical region M47.22 ; Spinal stenosis, lumbar region with neurogenic claudication M48.062 ; Spinal muscular atrophy, unspecified G12.9 ; Autoimmune thyroiditis E06.3 ; Impaired fasting glucose R73.01 ; Vitamin B12 deficiency anemia due to intrinsic factor deficiency D51.0 and Vitamin D deficiency, unspecified E55.9 Mil Gill MD [address] [id number] 07/10/2024 Mil Gill MD [address] [id number] 07/17/2024 Mil Gill Chronic obstructive pulmonary disease, unspecified J44.9 Mil Gill MD [address] [id number] 10/16/2024 Mil Gill MD [address] [id number] 11/24/2024 Mil Gill Spinal stenosis, lum bar region with neurogenic claudication M48.062 Mil Gill MD [address] [id number] 02/19/2025 Mil Gill Assessments Encounter Date Diagnosis (ICD Code) Assessment Notes Treatment Notes Treatment Clinical Notes Section Notes 07/09/2024 Acute upper respiratory infection, unspecified (ICD-10 - J06.9) She recently developed a cold that was COVID-negative. At the present time her lungs are clear and this is all upper respiratory related. She can use any mkgb-mpf-mbkegqk preparation she likes. If she does get [...] try steroid injection evaluation after an MRI 11/24/2024 Spinal stenosis, lumbar region with neurogenic claudication (ICD-10 - M48.062) 12/18/2024 Acute bronchitis, unspecified (ICD-10 - J20.9) Discussed with patient her persistent symptoms of a dry, nonproductive cough, raspy voice, and head congestion. Would like patient to begin daily Flonase use as well as an kmcc-zzs-swhdlox antihistamine to further assist in nasal congestion. Did obtain a respiratory panel as patient is fearful to have an underlying viral illness and spread this to her great grand child that she is seeing on [facility]. Suspect that patient may have had a viral illness and now has bronchitis given her persistent cough as well as raspy voice. Will begin azithromycin for further management of suspected bronchitis. Patient will be notified if respiratory panel does results with positive findings 12/18/2024 Acute cough (ICD-10 - R05.1) Discussed with patient her nonproductive dry cough and will begin Tessalon Perles to further assist in managing her cough symptoms. Lung sounds were clear and discussed that there is no need for completing a chest x-ray at this time. Patient aware that if her cough worsens or new symptoms of concern begin she is to follow-up with the office for further evaluation and can consider placing an order for a chest x-ray if warranted 01/15/2025 Chronic obstructive pulmonary disease, unspecified (ICD-10 - J44.9) Stable with current inhaler therapy. She may benefit from change to biological therapy in the near future as well. 01/15/2025 Encounter for general adult medical examination without abnormal findings (ICD-10 - Z00.00) General healthcare up-to-date. Check routine labs. Healthcare proxy already on file 02/11/2025 Vascular dementia, mild, without behavioral disturbance, psychotic disturbance, mood disturbance, and anxiety (ICD-10 - F01.A0) MOCA performed in office and scored . Her MRI showed chronic vascular changes with atrophy. Blood work unremarkable as reviewed. Recommend follow up in 6 months for reevaluation of MOCA. 04/23/2025 Mixed hyperlipidemia (ICD-10 - E78.2) Stable on prior labs as reviewed but her LDL is greater than 50. Recommend medical therapy to reduce LDL for goal of 50 or less 04/23/2025 Atherosclerotic heart disease of [place] coronary artery without angina pectoris (ICD-10 - I25.10) Symptomatically stable at present. Her LDL is less than 70 but ideally should be less than 50. Can adjust medical therapy to achieve goal of LDL less than 50. 11/12/2024 Other spondylosis with radiculopathy, thoracic region [...] but can also start with injection evaluation 04/23/2025 Nonrheumatic mitral valve disorder, unspecified (ICD-10 - I34.9) Stable without progressive symptoms 01/15/2025 Paroxysmal atrial fibrillation (ICD-10 - I48.0) Remains in sinus rhythm on exam. Continue anticoagulation. She has follow-up with cardiology pending. She can discuss switching apixaban to edoxaban for anticoagulation given stable coronary artery disease as well. Given the latest literature that this may be better than aspirin therapy in combination with anticoagulation. 01/15/2025 Other thrombophilia (ICD-10 - D68.69) Her [id number] score is at least a 3. Based as she is at increased risk for thromboembolic events and remains on anticoagulation. 04/23/2025 Paroxysmal atrial fibrillation (ICD-10 - I48.0) She remains in sinus rhythm and remains anticoagulated. 04/23/2025 Other thrombophilia (ICD-10 - D68.69) Her [id number] score is at least a 3. Based as she is at increased risk for thromboembolic events and remains on anticoagulation. 01/15/2025 Atherosclerotic heart disease of [place] coronary artery without angina pectoris (ICD-10 - I25.10) Symptomatically stable at present. Continue control comorbidity of hyperlipidemia. Would recommend goal of LDL less than 50. She could consider adding a second agent such as Repatha or Nexlizet. We can also consider risk reduction therapy with SGLT2 or Ozempic. She will look into this as well. 01/15/2025 Nonrheumatic mitral valve disorder, unspecified (ICD-10 - I34.9) Stable without progressive symptoms 04/23/2025 Other obesity due to excess calories (ICD-10 - E66.09) Encourage weight loss with diet and exercise 04/23/2025 Body mass index [BMI] 31.0-31.9, adult (ICD-10 - Z68.31) Her BMI is elevated and recommend exercise to facilitate weight loss for goal of BMI less than 30 01/15/2025 Other obesity due to excess calories (ICD-10 - E66.09) Encourage weight loss with diet and exercise 01/15/2025 Body mass index [BMI] 31.0-31.9, adult (ICD-10 - Z68.31) Her BMI is elevated. Encourage diet and exercise and weight loss 04/23/2025 Chronic obstructive pulmonary disease, unspecified (ICD-10 - J44.9) Stable with current inhaler therapy and periodic follow-up with pulmonary. 04/23/2025 Other spondylosis with radiculopathy, cervical region (ICD-10 - M47.22) Stable without any recurrent or progressive symptoms 01/15/2025 Impaired fasting glucose (ICD-10 - R73.01) Stable on prior labs as reviewed. Recheck status any recommend exercise and weight loss. 01/15/2025 Mixed hyperlipidemia (ICD-10 - E78.2) Stable at present. Goal would be to have LDL less than 50. Can consider second medication to achieve this goal. She will consider this and look into this 04/23/2025 Spinal stenosis, lumbar region with neurogenic claudication (ICD-10 - M48.062) Stable at present. She has had 2 injections and she still has some radicular pain but in general has improved. If she is not better by 3 injection she may need surgical evaluation 04/23/2025 Spinal muscular atrophy, unspecified (ICD-10 - G12.9) She has lost muscle bulk in the right hand as a complication of her cervical radiculopathy and surgeries. Currently stable. 01/15/2025 Autoimmune thyroiditis (ICD-10 - E06.3) Stable on prior labs. Recheck status 01/15/2025 Other spondylosis with radiculopathy, cervical region (ICD-10 - M47.22) Stable without any recurrent or progressive symptoms 04/23/2025 Autoimmune thyroiditis (ICD-10 - E06.3) Stable on prior labs as reviewed 04/23/2025 Impaired fasting glucose (ICD-10 - R73.01) Stable on prior labs as reviewed. Recommend exercise and weight loss 01/15/2025 Spinal stenosis, lumbar region with neurogenic claudication (ICD-10 - M48.062) Stable at present. She had 1 injection and her pain has improved and has follow-up for reinjection evaluation. 01/15/2025 Spinal muscular atrophy, unspecified (ICD-10 - G12.9) She has lost muscle bulk in the right hand as a complication of her cervical radiculopathy and surgeries. Currently stable. 04/23/2025 Vitamin B12 deficiency anemia due to intrinsic factor deficiency (ICD-10 - D51.0) Stable on prior labs as reviewed. Continue B12 replacement 04/23/2025 Vitamin D deficiency, unspecified (ICD-10 - E55.9) Stable on prior labs as reviewed. Recheck status to verify that there is no deficiency. Would consider vitamin D supplementation for goal level of 30+ 01/15/2025 Vitamin B12 deficiency anemia due to intrinsic factor deficiency (ICD-10 - D51.0) Stable with B12 replacement. Recheck status 01/15/2025 Family history of malignant neoplasm of breast (ICD-10 - Z80.3) Up-to-date on mammogram 01/15/2025 Personal history of adenomatous and serrated colon polyps (ICD-10 - Z86.0101) She apparently had a repeat colonoscopy this year. Can get copies of this. She had another 5 polyps which brings her to a total of 10 polyps. In view of this she may want to consider genetic testing especially given the family history of breast cancer. 01/15/2025 Vitamin D deficiency, unspecified (ICD-10 - E55.9) Stable on prior labs as reviewed. Recheck status to verify that there is no deficiency. Would consider vitamin D supplementation for goal level of 30+ 01/15/2025 Encounter for screening for malignant neoplasm of colon (ICD-10 - Z12.11) Up-to-date on colon cancer screening 01/15/2025 Encounter for screening mammogram for malignant neoplasm of breast (ICD-10 - Z12.31) Up-to-date on breast cancer screening 01/15/2025 Encounter for screening for osteoporosis (ICD-10 - Z13.820) Up-to-date on osteoporosis screening 01/15/2025 Encounter for screening for cardiovascular disorders (ICD-10 - Z13.6) Blood pressure stable. Can check for comorbidity of hyperlipidemia and hyperglycemia and use this data to further assess risk 01/15/2025 Encounter for immunization (ICD-10 - Z23) Vaccines up-to-date 01/15/2025 Encounter for antibody response examination (ICD-10 - Z01.84) She would be considered immune to rubeola by virtue of her age 0501/15/2025 Sensorineural hearing loss, bilateral (ICD-10 - H90.3) Has had evaluation the past and does not require hearing aids at the present time 01/15/2025 Encounter for screening for other viral diseases (ICD-10 - Z11.59) Can screen for hepatitis C as is the general recommendation 01/15/2025 Mild cognitive impairment of uncertain or unknown etiology (ICD-10 - G31.84) Given some mild cognitive impairment recommend evaluation for treatable and reversible causes 07/09/2024 Other This note was created with [...] syntax. Also labs were reviewed with patient. 01/15/2025 Other This note was created with voice dictation recognition software and may contain errors of grammar and syntax. Also labs were reviewed with patient. 02/11/2025 Other Spent at least 30 min evaluating and assessing and administering MOCA test and answering patients questions 04/23/2025 Other This note was created with voice dictation recognition software and may contain errors of grammar and syntax. Also labs were reviewed with patient. Plan Of Treatment Pending Test Test Name Order Date 25OH VITAMIN D 09/14/2022 25OH VITAMIN D 09/08/2021 25OH VITAMIN D 04/04/2022 COMPLETE CBC WITH DIFF 09/08/2021 COMPLETE CBC WITH DIFF 09/14/2022 COMPLETE URINALYSIS 09/14/2022 COMPLETE URINALYSIS 09/08/2021 COMPREHENSIVE METABOLIC PANEL 09/08/2021 COMPREHENSIVE METABOLIC PANEL 09/14/2022 COMPREHENSIVE METABOLIC PANEL 04/04/2022 FREE T4 04/04/2022 FREE T4 09/14/2022 FREE T4 09/08/2021 HEMOGLOBIN A1C 09/08/2021 HEMOGLOBIN A1C 09/14/2022 LIPID PANEL W REFLEX TO DLDL 09/14/2022 LIPID PANEL W REFLEX TO DLDL 09/08/2021 LIPID PANEL W REFLEX TO DLDL 04/04/2022 METHYLMALONIC ACID, 04/04/2022 METHYLMALONIC ACID, 09/14/2022 TSH 09/08/2021 TSH 09/14/2022 TSH 04/04/2022 VITAMIN B12 04/04/2022 VITAMIN B12 09/14/2022 ANTI-HEPATITIS C W/RFLX HCV QNT 09/14/[address], Brain Amyloid 01/15/2025 Next Appt Details Provider Name:Mil Gill , 08/18/2025 09:30:00 AM, [address] [place] [address], [address], [phone], Provider Name:Mil Gill , 02/01/2026 10:00:00 AM, [address] [place] [address], [address], [phone], Insurance Providers Payer Name Payer Address Payer Phone Subscriber Number Group Number Insured Name Patient Relationship to Insured Coverage Start Date Coverage End Date MEDICARE [address] [place] [phone] [id number] Altagracia Silva Self - patient is the insured [employer] MEDEX [address] [place] [address] [phone] [id number] Altagracia Silva Self - patient is the insured Medications Administered Medication Instructions Date of Administration Dosage Notes Vitamin B12 11/17/2015 1 mL MFD BY DEONTE [employer] Vitamin B12 12/16/2015 1 mL Vitamin B12 09/11/2016 1 mL Vitamin B12 06/13/2018 1 mL Vitamin B12 04/28/2019 1 mL Vitamin B12 05/28/2019 1 mL Vitamin B12 10/27/2015 1 mL deonte [employer], [facility] [place] Vitamin B12 07/22/2019 1 mL Vitamin B12 06/27/2019 1 mL Vitamin B12 03/28/2019 1 mL Vitamin B12 02/28/2019 1 mL Vitamin B12 01/29/2019 1 mL Vitamin B12 12/23/2018 1 mL Vitamin B12 07/15/2018 1 mL [...] 96.652 Sensorineural hearing loss, bilateral H9 0.3 USP (current) use of anticoagulant s Z79.01 Unilateral [...]
--- OUTSIDE RECORDS SUMMARY | 2025-06-19 15:17 | XMS_ITS | Clinical Summary ---
Author Organization [facility] Address [address] [place] [phone] Phone Care Team Providers Care Two Needle Machine Operator Name Role Phone Mil Gill MD Primary Care Provider Allergies Active Allergy Reactions Criticality Noted Date [...] lanteroL (ANORO ELLIPTA) 62.5-25 mcg/actuation inhaler Active ye-lts-CI-vit S-wihzcx-nodmkj t (PreserVision AREDS 2 Plus MV) 200 [...] Problem Noted Date Diagnosed Date Atrial fibrillation ([facility] V24, [facility] V28) 0 10/03/2024 Assessment & Plan (10/03/2024 11:08 AM EST): Pt on Eliquis Advised to hold 2 days prior to colonoscopy Risk of clot/cva off of med reviewed Hypothyroid 10/03/2024 Hyperlipidemia 10/03/2024 Emphysema lung ([facility] V24, [facility] V28) 2024 Adenomatous polyp of colon 10/03/2024 Assessment & Plan (10/03/2024 11:08 AM EST): Due for surveillance colonoscopy Depression 10/03/2024 HTN (hypertension) 10/03/2024 Right bundle branch block (RBBB) 10/03/2024 Mitral valve prolapse 10/03/2024 Osteoporosis 10/03/2024 Surgical History Surgery Date Site/Laterality Comments CERVICAL [...] History Date Comments Emphysema lung (CMS/HCC V24, [facility] V28) Depression Hypertension Hyperlipidemia Anxiety GERD (gastroesophageal reflux disease) Social History Tobacco Use Types Packs/Day Years Used Date Smoking Tobacco: Former Cigarettes Smokeless Tobacco: Never Tobacco Cessation:Counseling Given: Not Answered Alcohol Use Standard Drinks/Week Comments Yes 0 (1 standard drink = 0.6 oz pur e alcohol) social Interpersonal Safety Answer Date Record ed Physical Abuse Unrecognized value 12/11/2024 Verbal Abuse Unrecognized value 12/11/2024 Comments No Sex and Gender Information [...] 57 12/11/2024 12:54 PM EDT Temperature 36.3 C (97.4 F) 12/11/2024 12:34 PM EDT Respiratory Rate 14 12/11/2024 12:54 PM EDT Oxygen Saturation 98% 12/11/2024 12:54 PM EDT Inhaled Oxygen Concentration - - Weight 80.7 kg (178 lb) 12/11/2024 11:51 AM EDT Height 165.1 cm (5' 5 ) 12/11/2024 11:51 AM EDT Body Mass Index 29.62 12/11/2024 11:51 AM EDT Plan of Treatment Health Maintenance Due Date Last Done Comments Cholesterol Screening (Lipid Panel) 08/02/2022 Hepatitis C Screening 08/02/2022 Medicare Annual Wellness Visit 08/02/2022 Osteoporosis Screening (Bone Density Screening) 08/02/2022 Social Influencers of Health Screening 08/02/2022 Hypertension/CHF/CAD Annual BMP Blood Test 08/19/2024 Depression Screening 09/03/2024 COVID-19 Vaccine ( season) 2025 06/10/2024, 07/03/2023, 06/05/2022, Additional history exists Influenza Vaccine (#1) 2025 , 05/19/2023, 06/02/2022, Additional history exists Falls Risk Assessment 12/11/2025 12/11/2024 DTaP,Tdap,and Td Vaccines (2 - Td or Tdap) 06/03/2034 06/03/2024 Zoster Vaccines Completed 03/03/2019, 12/27/2018 Hepatitis A Vaccines Aged Out 09/02/2019 No long er eligible based on patient's age to complete this topic RSV Immunization Adult Patients Completed 07/17/2023 Pneumococcal Vaccine: 50+ Years Completed 09/18/2023 Colorectal Cancer Screening: Colonoscopy Discontinued 12/11/2024, 10/06/2024 [...] this topic Medical Devices Implanted Type Area Drainage Engineer Device Identifier Shelf Expiration Date Model / Serial / Lot Joints Hip Joints Hip Bilateral : Hip Joints Knee Joints Knee Left: Knee Procedures Procedure Name Priority Date/Time Associated Diagnosis Comments COLONOSCOPY Routine 12/11/2024 12:33 PM EDT Personal history of hyperplastic colon polyps from Last 3 Months or Most Recently Relevant to Health Maintenance Results * COLONOSCOPY Anesthesia - MAC; [facility] ENDOSCOPY (12/11/2024 12:33 PM EDT) Anatomical Region Laterality Modality Endoscopy 12/11/2024 12:0 3 PM EDT Impressions 12/11/2024 12:35 PM EDT - Two diminutive polyps in the ascending colon, removed with a cold snare. Resected and retrieved. - Two diminutive polyps in the descending colon, removed with a cold snare. Resected and retrieved. - One diminutive polyp in the sigmoid colon, removed with a cold snare. Resected and retrieved. - Internal hemorrhoids. Recommendation: - Await pathology results. - Repeat colonoscopy for surveillance based on pathology results. Narrative 12/11/2024 12:35 PM EDT [facility] GI Patient Name: Altagracia Silva Procedure Date: 12/11/2024 12:03 PM Date of : 1950 Age: 74 Gender: Female Note Status: Finalized Attending MD: Shy Brown MD, Procedure Date No Time: 12/11/2024 Procedure: Colonoscopy Indications: High risk colon cancer surveillance: Personal history of multiple (3 or more) adenomas Providers: Shy Brown MD Referring MD: Mil Gill MD Medicines: Propofol per Anesthesia Complications: No immediate complications. Estimated Blood Loss: Estimated blood loss: none. Procedure: Pre-Anesthesia Assessment: - ASA Grade Assessment: III - A patient with severe systemic disease. After I obtained informed consent, the scope was passed under direct vision. Throughout the procedure, the patient's blood pressure, pulse, and oxygen [...] polyps were found in the ascending colon. The polyps were diminutive in size. These polyps were removed with a cold snare. Resection and retrieval were complete. Two sessile polyps were found in the descending colon. The polyps were diminutive in size. These polyps were removed with a cold snare. Resection and retrieval were complete. A diminutive polyp was found in the sigmoid colon. The polyp was sessile. The polyp was removed with a cold snare. Resection and retrieval were complete. Internal hemorrhoids were found during retroflexion. The hemorrhoids were Grade I (internal hemorrhoids that do not prolapse). Procedure Code(s): --- Professional --- 68738, Colonoscopy, flexible; with removal of tumor(s), polyp(s), or other lesion(s) by snare technique Diagnosis Code(s): --- Professional --- Z86.010, Personal history of colonic polyps D12.2, Benign neoplasm of ascending colon D12.4, Benign neoplasm of descending colon D12.5, Benign neoplasm of sigmoid colon CPT copyright 2020 [employer]. All rights reserved. The codes documented in this report are preliminary and upon yard loader operator review may be revised to meet current compliance requirements. Shy Brown MD 12/11/2024 12:35:26 PM This report has been signed electronically.Shy Brown MD Number of Addenda: 0 Note Initiated On: 12/11/2024 12:03 PM Scope In: Scope Out: Endoscopy Department at [facility] - [address] [place] [phone] Procedure Note Shy Brown MD - 12/11/2024 [facility] GI Patient Name: Altagracia Silva Procedure [...] not prolapse). Procedure Code(s): --- Professional --- 68208, Colonoscopy, flexible; with removal of tumor(s), polyp(s), or other lesion(s) by snare technique Diagnosis Code(s): --- Professional --- Z86.010, Personal history of colonic polyps D12.2, Benign neoplasm of ascending colon D12.4, Benign neoplasm of descending colon D12.5, Benign neoplasm of sigmoid colon CPT copyright 2020 [employer]. All rights reserved. The codes documented in this report are preliminary and upon yard loader operator reviewmay be revised to meet current compliance requirements. Shy Brown MD 12/11/2024 12:35:26 PM This report has been signed electronically.Shy Brown MD Number of Addenda: 0 Note Initiated On: 12/11/2024 12:03 PM Scope In: Scope Out: Endoscopy Department at [facility] - [address] [place] [phone] IMPRESSION: - Two diminutive polyps in the [...] Shy Brown MD GI~PROCEDURE ORDERABLES Final Result from Last 3 Months or Most Recently Relevant to Health Maintenance Insurance MEDICARE [facility] Care Teams Two Needle Machine Operator Relationship Specialty Start Date End Date Mil Gill MD [address] [place] [phone] PCP - General Internal Medicine 08/19/24
--- OUTSIDE RECORDS SUMMARY | 2025-06-19 15:17 | XMS_ITS | Encounter Summary ---
Author Organization [facility] Address [address] [place] [address] Phone Care Team Providers Care Junior Designer Name Role Phone Pcp, Unknown Primary Care Provider Unavailabl e Encounter Details Date Type Department Care Team (Latest Contact Info) Description 02/03/2020 Ancillary Orders [facility] [address] [place] [address] Carina Gill MD [address] [phone] [email or web address] [email or web address] atrial [email or web address] Social History Tobacco Use Types Packs/Day Years Used Date Smoking Tobacco: Never Assessed Comments Unknown Sex and Gender Information Value Date Recorded Sex Assigned at Not on file Legal Sex Female 9:48 AM EDT Gender Identity Not on file Sexual Orientation Not on file documented as of this encounter Plan of Treatment Scheduled Orders Name Type Priority Associated Diagnoses Orde r Schedule Holter Monitor 48 Hours Cardiac Monitors Routine Paroxysmal atrial fibrillation Expected: 02/03/2020, Expires: 05/05/2020 documented as of this encounter Visit Diagnoses Diagnosis Paroxysmal atrial fibrillation Atrial fibrillation documented in this encounter Care Teams Junior Designer Relationship Specialty Start Date End Date Pcp, Unknown PCP - General 02/03/20 documented as of this encounter Additional Source Comments The information contained in this document represents components of the legal health record. It is not the complete legal health record.[facility]
== END 2025-06-19 13:29 | disposition home or self-care (01) ==
LOC: HO.HPS 12:57
PROVIDERS: PCP Internal Medicine; Visit Provider Hospitalist
DX: J43.2 Centrilobular emphysema (principal); J84.9 Interstitial pulmonary disease, unspecified; R09.02 Hypoxemia; R91.1 Solitary pulmonary nodule
CPT/HCPCS: 99214; G2211

== ENCOUNTER → 2025-06-19 12:56 | Outpatient (BNVA) | payer MEDICARE, SELFPAY | PROVIDERS: PCP Internal Medicine; Visit Provider Hospitalist | DX: J43.2 Centrilobular emphysema (principal); R06.09 Other forms of dyspnea; J84.9 Interstitial pulmonary disease, unspecified; R06.02 Shortness of breath; R91.1 Solitary pulmonary nodule | CPT/HCPCS: 99212 ==

== ENCOUNTER 2025-07-09 11:43 | Outpatient (REF) | payer MEDICARE, SELFPAY ==
--- NOTE | 2025-07-09 11:50 | ECG_ITS ---
Test Reason : copd Blood Pressure : */* mmHG Vent. Rate : 77 BPM Atrial Rate : 77 BPM P-R Int : 158 ms QRS Dur : 122 ms QT Int : 442 ms P-R-T Axes : 59 -80 35 degrees QTcB Int : 500 ms Sinus rhythm with frequent Premature ventricular complexes Right bundle branch block Left anterior fascicular block Bifascicular block Abnormal ECG No previous ECGs available Referred By: Claus Kramer Electronically Signed By: Rohan Gonzalez
[2025-07-09 11:59] LABS: MANUAL DIFF FLAG NO
[2025-07-09 12:49] LABS: Hematocrit 44.6 % (37.0-47.0); Hemoglobin 14.3 g/dl (12.0-16.0); Imm Gran Abs Auto 0.06 X10*3/uL (0.00-0.03); Imm Gran Pct Auto 0.9 % (0.0-0.4); Lymphocytes Absolute Auto 1.7 X10*3/uL (1.2-4.9); Mean Corpuscular HGB Conc 32.1 g/dl (31.0-35.0); Mean Corpuscular Hemoglobin 33.0 pg (27.0-33.0); Mean Corpuscular Volume 103.0 fL (80.0-98.0); NRBC Pct Auto 0.0 /100WBC (0.0-0.2); Platelet Count 270 X10*3/uL (160-400); Red Blood Count 4.33 X10*6/uL (4.20-5.50); White Blood Count 6.6 X10*3/uL (4.8-10.8)
[2025-07-09 12:50] LABS: NRBC Abs Auto 0.000 X10*3/uL (0.0-0.012)
--- OUTSIDE RECORDS SUMMARY | 2025-07-09 14:42 | XMS_ITS | Clinical Summary ---
Author Organization [facility] Address [address] [place] [address] Phone Care Team Providers Care Consumer Affairs Specialist Name Role Phone Pcp, Unknown Primary Care [...] MEDEX SUPPLEMENT MEDICARE PART A & B [place] [employer] MEDEX SUPPLEMENT MEDICARE PART A & B [employer] MEDEX SUPPLEMENT MEDICARE PART A & B [employer] MEDEX SUPPLEMENT MEDICARE PART A & B Member Subscriber Plan / Payer ( fective 2014-Present) Name:Altagracia Silva Member ID:[id number] Relation to Subscriber:Self Name:Altagracia Silva Subscriber ID:[id number] Payer ID:[id number] Group ID:Not on file Type:Medicare Address: [employer] [address] [place] [address] [employer] MEDEX SUPPLEMENT MEDICARE PART A & B Member Subscriber Plan / Payer (Ef fective 2014-Present) Name:Altagracia Silva Member ID:[id number] Relation to Subscriber:Self Name:Altagracia Silva Subscriber ID:[id number] Payer ID:[id number] Group ID:Not on file Type:Medicare Address: [employer] [address] [place] [address] [employer] MEDEX SUPPLEMENT MEDICARE PART A & B Member Subscriber Plan / Payer ( fective 2014-Present) Name:Altagracia Silva Member ID:[id number] Relation to Subscriber:Self Name:Altagracia Silva Subscriber ID:[id number] Payer ID:[id number] Group ID:Not on file Type:Medicare Address: [employer] [address] [place] [address] [employer] MEDEX SUPPLEMENT MEDICARE PART A & B Member Subscriber Plan / Payer ( fective 2014-Present) Name:Altagracia Silva Member ID:[id number] Relation to Subscriber:Self Name:Altagracia Silva Subscriber ID:[id number] Payer ID:[id number] Group ID:Not on file Type:Medicare Address: [employer] [address] [place] [address] [employer] MEDEX SUPPLEMENT MEDICARE PART A & B [employer] MEDEX SUPPLEMENT Care Teams Consumer Affairs Specialist Relationship Specialty Start Date End Date Pcp, Unknown PCP - General 02/03/20 Additional Source Comments The information contained in this document represents components of the legal health record. It is not the complete legal health record.[facility]
--- OUTSIDE RECORDS SUMMARY | 2025-07-09 14:42 | XMS_ITS | Encounter Summary ---
Author Organization [facility] Address [address] [place] [address] Phone Care Team Providers Care Circular Knife Machine Cutter Name Role Phone Pcp, Unknown Primary Care Provider Unavailabl e Encounter Details Date Type Department Care Team (Latest Contact Info) Description 02/05/2020 Ancillary Orders [facility] [address] [place] [address] Carina Gill MD [address] [address] [email or web address] Paroxysmal atrial fibrillation Social History Tobacco Use [...] of a supraventricular tachycardia at a rate [id number] bpm. us Carina Gill MD [facility] ORDERABLES Final Result documented in this encounter Visit Diagnoses Diagnosis Paroxysmal atrial fibrillation Atrial fibrillation Paroxysmal atrial fibrillation Atrial fibrillation documented in this encounter Care Teams Circular Knife Machine Cutter Relationship Specialty Start Date End Date Pcp, Unknown PCP - General 02/03/20 documented as of this encounter Additional Source Comments The information contained in this document represents components of the legal health record. It is not the complete legal health record.[facility]
--- OUTSIDE RECORDS SUMMARY | 2025-07-09 14:42 | XMS_ITS | Clinical Summary ---
Author Organization [facility] Address [address] [place] [phone] Phone Care Team Providers Care Rolled Seat Trimmer Name Role Phone Mil Gill MD Primary [...] lanteroL (ANORO ELLIPTA) 62.5-25 mcg/actuation inhaler Active mv-iyc-FF-vit Z-etvtei-omiexi t (PreserVision AREDS 2 Plus MV) 200 [...] Problem Noted Date Diagnosed Date Atrial fibrillation ([facility] V24, [facility] V28) 0 10/03/2024 Assessment & Plan (10/03/2024 11:08 AM EST): Pt on Eliquis Advised to hold 2 days prior to colonoscopy Risk of clot/cva off of med reviewed Hypothyroid 10/03/2024 Hyperlipidemia 10/03/2024 Emphysema lung ([facility] V24, [facility] V28) 2024 Adenomatous polyp of colon 10/03/2024 [...] History Date Comments Emphysema lung (CMS/HCC V24, [facility] V28) Depression Hypertension Hyperlipidemia Anxiety GERD (gastroesophageal [...] this topic Medical Devices Implanted Type Area Seat Maker Device Identifier Shelf Expiration Date Model / Serial / Lot Joints Hip Joints Hip Bilateral : Hip Joints Knee Joints Knee Left: Knee Procedures Procedure Name Priority Date/Time Associated Diagnosis Comments COLONOSCOPY Routine 12/11/2024 12:33 PM EDT Personal history of hyperplastic colon polyps from Last 3 Months or Most Recently Relevant to Health Maintenance Results * COLONOSCOPY Anesthesia - MAC; [facility] ENDOSCOPY (12/11/2024 12:33 PM EDT) Anatomical [...] pathology results. Narrative 12/11/2024 12:[address] [facility] GI Patient Name: Altagracia Silva Procedure [...] not prolapse). Procedure Code(s): --- Professional --- 48257, Colonoscopy, flexible; with removal of tumor(s), polyp(s), or other lesion(s) by snare technique Diagnosis Code(s): --- Professional --- Z86.010, Personal history of colonic polyps D12.2, Benign neoplasm of ascending colon D12.4, Benign neoplasm of descending colon D12.5, Benign neoplasm of sigmoid colon CPT copyright 2020 [employer]. All rights reserved. The codes documented in this report are preliminary and upon insurance coder review may be revised to meet current compliance requirements. Shy Brown MD 12/11/2024 12:35:26 PM This report has been signed electronically.Shy Brown MD Number of Addenda: 0 Note Initiated On: 12/11/2024 12:03 PM Scope In: Scope Out: Endoscopy Department at [facility] - [address] [place] [phone] Procedure Note Shy Brown MD - 12/11/[address] [facility] GI Patient Name: Altagracia Silva Procedure [...] not prolapse). Procedure Code(s): --- Professional --- 58735, Colonoscopy, flexible; with removal of tumor(s), polyp(s), or other lesion(s) by snare technique Diagnosis Code(s): --- Professional --- Z86.010, Personal history of colonic polyps D12.2, Benign neoplasm of ascending colon D12.4, Benign neoplasm of descending colon D12.5, Benign neoplasm of sigmoid colon CPT copyright 2020 [employer]. All rights reserved. The codes documented in this report are preliminary and upon insurance coder reviewmay be revised to meet current compliance requirements. Shy Brown MD 12/11/2024 12:35:26 PM This report has been signed electronically.Shy Brown MD Number of Addenda: 0 Note Initiated On: 12/11/2024 12:03 PM Scope In: Scope Out: Endoscopy Department at [facility] - [address] [place] [phone] IMPRESSION: - Two diminutive polyps in the [...] Recently Relevant to Health Maintenance Insurance MEDICARE [facility] Care Teams Rolled Seat Trimmer Relationship Specialty Start Date End Date Mil Gill MD [address] [place] [phone] PCP - General Internal Medicine 08/19/24
--- OUTSIDE RECORDS SUMMARY | 2025-07-09 14:42 | XMS_ITS | Encounter Summary ---
Author Organization [facility] Address [address] [place] [address] Phone Care Team Providers Care Glassware Verifier Name Role Phone Pcp, Unknown Primary Care Provider Unavailabl e Encounter Details Date Type Department Care Team (Latest Contact Info) Description 02/03/2020 Ancillary Orders [facility] [address] [place] [address] Carina Gill MD [address] [address] [email or web address] Paroxysmal atrial fibrillation Social History Tobacco Use [...] fibrillation documented in this encounter Care Teams Glassware Verifier Relationship Specialty Start Date End Date Pcp, Unknown PCP - General 02/03/20 documented as of this encounter Additional Source Comments The information contained in this document represents components of the legal health record. It is not the complete legal health record.[facility]
== END 2025-07-09 11:44 | disposition home or self-care (01) ==
LOC: HO.LAB 11:43
PROVIDERS: PCP Internal Medicine; Visit Provider Hospitalist
DX: J43.2 Centrilobular emphysema (principal)
CPT/HCPCS: 36415; 82784; 82785; 85025; 85652; 93005

== ENCOUNTER → 2025-07-09 11:50 | Outpatient (BNV) | payer MEDICARE, SELFPAY | PROVIDERS: PCP Internal Medicine; Visit Provider Internal Medicine Cardiovascular Disease | DX: I49.3 Ventricular premature depolarization (principal); I45.2 Bifascicular block | CPT/HCPCS: 93010 ==